=== PATIENT | female | born 1935 | race Caucasian/White ===

== ENCOUNTER 2023-09-29 16:19 | Inpatient (IN) | payer OTHER, SELFPAY ==
[2023-09-29 12:38] LABS: Glucose - Point of Care 142 mg/dl (70-99)
[2023-09-29 12:43] VITALS: BP 98/38
[2023-09-29 13:03] VITALS: BP 135/58
[2023-09-29 13:05] VITALS: BMI 23.8
[2023-09-29] MEDS: NSS 1000 IV ×2 (13:06→17:54)
[2023-09-29 13:15] LABS: % Basophils 0.6 % (0-2); % Eosinophils 2.8 % (0-6); % Immature Granulocytes 0.2 % (0-0.5); % Lymphocytes 34.4 % (20.5-51.1); % Monocytes 8.6 % (1.7-9.3); % Neutrophils 53.4 % (42.2-75.2); Absolute Basophils 0.1 10^3/uL (0-0.2); Absolute Eosinophils 0.2 10^3/uL (0-0.7); Absolute Monocytes 0.7 10^3/uL (0.1-0.6); Absolute Neutrophils 4.6 10^3/uL (1.4-6.5); Hematocrit 31.6 % (37.0-47.0); Hemoglobin 10.7 g/dL (12.0-16.0); Mean Corp Hgb Conc. 33.9 g/dL (33.0-37.0); Mean Corpuscular Hgb 30.2 pg (27.0-31.0); Mean Corpuscular Volume 89.3 fL (81.0-99.0); Mean Platelet Volume 9.8 fL (7.4-10.4); Nucleated Red Blood Cells % 0 %; Platelet Count 363 10^3/uL (130-400); Red Blood Cell Count 3.54 10^6/uL (4.20-5.40); Red Cell Dist. Width 14.3 % (11.5-14.5); White Blood Cell Count 8.6 10^3/uL (4.8-10.8)
--- NOTE | 2023-09-29 13:17 | ED.GENMED ---
History of Present Illness
General
Chief Complaint: Change in Mental Status
Source: patient
Time Seen by Provider: 09/29/23 12:44
History of Present Illness
History of Present Illness:
88 year old female with past medical history of hypertension, hyperlipidemia, previous acute kidney injury, diabetes insipidus presenting to the emergency department for reported change in mental status from [facility].
Family reportedly went to see the patient today and found the patient unable to get out of bed and seemingly confused. EMS noted patient with recently diagnosed spinal fractures and has been on opiate medications and were unsure if this may be
related. Patient arrives to the ER awake and alert, only oriented to self. Was not aware of place nor time. Patient without any physical complaints but is continuously groaning and stating 'I am going to '.
Past History
Past History
ED Past Medical History: GERD, HTN, Hypercholesterolemia, Renal failure and Psychiatric
ED Past Surgical History: Orthopedic
Social History
Tobacco: Non-smoker
Alcohol: None
Drug: None
Living: assisted living
Review of Systems
Review of Systems
All Other Systems: ROS reviewed and negative except as documented in HPI and ROS
Phy Exam
Physical Exam
Physical Exam:
GENERAL: Alert , continuously groaning but stating she is not in any pain
HEAD: NCAT
EYE: Clear conjunctiva
NECK: Supple
ENT: o/p clr, mmm.
CARDIAC: Regular rate and rhythm .
LUNGS: Clear breath sounds bilaterally, no acute respiratory distress, no wheezes/rales/rhonchi
ABDOMEN: Soft, without focal tenderness, no r/g, no cvat
NEUROLOGICAL: Alert and oriented to self
SKIN: Warm and dry, skin intact.
MUSCULOSKELETAL: No edema, well perfused.
PSYCH: Normal and appropriate interaction.
Scores
Heart Failure Risk
Heart Failure Risk Score: Not Applicable
Heart Score for Chest Pain Patients
STEMI patient?: Not applicable
Withdrawal Assessment of Alcohol
Withdrawal Assessment Completed?: Not applicable
Course
Orders/Labs/Results
Orders:
Orders
09/29/23 12:36
Electrocardiogram (*1) Urgent
Reason for Study: Other
Other Reason for Exam: bradycardia
09/29/23 12:37
EKG- Treatment ONCE
09/29/23 12:42
Complete Blood Count/With Diff Urgent
Comprehensive Metabolic Panel Urgent
Urinalysis Reflex To Culture Urgent
Date Specimen was Collected: 09/29/23
Time Specimen was Collected: 12:37
09/29/23 12:55
Electrocardiogram (*1) Urgent
Reason for Study: Other
Other Reason for Exam: change in mental status
CT Head W/o Iv Contrast Urgent
Comment:
Reason For Exam: change in mental status
EKG- Treatment ONCE
0.9% Sodium Chloride 1000 ml [Nss] 1,000 ml IV BOLUS
CR Chest Portable - 1 View Urgent
Comment:
Reason For Exam: change in mental status
Reason Study Needs to be Portable: Unable to Transport
09/29/23 13:01
COVID-19 Antigen Urgent
Source: Nasal Swab
Lactic Acid Q4H
Comment: CANCEL 2nd LACTIC ACID IF 1st LACTIC ACID IS LESS THAN 2
Abnormal Lab Results
09/29/23 09/29/23
12:37 12:42
RBC 3.54 L 10^6/uL
(4.20-5.40)
Hgb 10.7 L g/dL
(12.0-16.0)
Hct 31.6 L %
(37.0-47.0)
Absolute Monos (auto) 0.7 H 10^3/uL
(0.1-0.6)
BUN 95 H mg/dl
(7-17)
Creatinine 1.8 H mg/dL
(0.6-1.0)
Glucose 144 H mg/dl
(70-99)
Alkaline Phosphatase 191 H U/L
(38-126)
Albumin 2.9 L g/dl
(3.5-5.0)
Urine Bilirubin 1+ A
(Negative)
POC Glucose 142 H mg/dl
(70-99)
09/29/23 12:42
09/29/23 12:42
Vital Signs
Initial and Last Documented VS:
Initial Vital Signs
Pulse Resp Pulse Ox
85 16 95
09/29/23 12:37 09/29/23 12:37 09/29/23 12:37
Last Documented Vital Signs
Temp Pulse Resp BP Pulse Ox
98.5 F 82 13 136/53 97
09/29/23 12:43 09/29/23 14:45 09/29/23 14:45 09/29/23 14:20 09/29/23 14:30
MDM/Problems Addressed
Differential Diagnosis Includes:
Infectious etiology such as UTI or pneumonia, CVA or intracranial bleeding, medication interaction, dementia
MDM/Problems Addressed:
88-year-old female presenting to the emergency department for reported change in mental status. Reportedly on new medications for pain due to back fractures. Unsure if this is related. Patient not exhibiting any signs of opiate overdose. Patient
without any specific complaints at this time. No signs of trauma. Will obtain labs, urine, chest x-ray, head CT. Will attempt to contact family to get further history. Disposition pending.
*Pulse Oximetry
Patient hypoxic: no
*EKG
Interpreted by ED Provider?: Yes
Comparison EKG: no comparison EKG present
Heart Rate: 85
Rate: normal
Rhythm: sinus
[address]: normal axis
Ischemia: no ischemia
*Lock Setter Interpretation
Rate: normal
Rhythm: sinus
*Critical Care Note
Total Time (30-74mins, 75-104mins- exclusive of procedures): Not Applicable
Patient Management
Social determinants of health affecting care: Living situation
Discussion with other providers: Hospitalist
Escalation/DeEscalation of care consider admission/obs:
I spoke to patient's son and [id number] who are power of personal injury attorney. Patient has lived in [place] the last 30 years or so, became ill and went to the hospital there, was sent to [facility] for rehab and then since disposition to [facility]
where she has been out for the last 10 days or so. Over this time patient has had episodes of waxing and waning mental status changes but today when they went to see her he had a difficult time staying awake and staff at her assisted living
reported that patient had not been able to be awake since 7 AM. Family also reports that EMS had made them aware that patient had complained of some visual difficulties while getting in the ambulance today. Patient stating no current visual
disturbances. Patient is unable to elaborate further on this potential visual disturbance. Family unaware of patient's baseline renal function. Patient is DNR/DNI.
Labs do reveal prerenal azotemia and an acute kidney injury. No leukocytosis. Mild anemia. Urine without signs of infection, chest x-ray with a small right-sided pleural effusion. Head CT negative for any acute intracranial pathologies. Given
patient's suspected delirium combined with her prerenal azotemia and dehydration will admit for continued monitoring. Family made aware. They do note that patient has not been eating or drinking much due to not wanting to go to the bathroom
because it hurt for her to get up with her recent back fracture and she was attempting to try and not have to urinate as much throughout the day. Hospitalist team accepts for continued evaluation and treatment
ED Attending Note
-
Portions of this chart may have been created with voice recognition software.� Occasional wrong word or��sound alike� substitutions may have occurred due to the inherent limitations of voice recognition software.
Discharge Plan
Departure
Patient Disposition: Admit
Date of Disposition: 09/29/23
Time of Disposition: 14:59
Presentation/result/management discussed w/ accepting MD/DO: Hospitalist
Discharge Problem:
ERIC (acute kidney injury), Delirium
Prescriptions:
No Action
sennosides [senna] 8.6 mg Tablet
17.2 mg PO BID
acetaminophen [Tylenol] 325 mg Tablet
650 mg PO Q6HPRN PRN (Reason: mild pain)
lidocaine 4 % Adhesive Patch,Medicated
1 patch TOPICAL DAILY
cyanocobalamin (vitamin B-12) 1,000 mcg Tablet
1,000 mcg PO DAILY
melatonin 3 mg Tablet
3 mg PO HS
ferrous sulfate 325 mg (65 mg iron) Tablet
325 mg PO DAILY
docusate sodium [Colace] 100 mg Capsule
100 mg PO DAILY
bumetanide [Bumex] 1 mg Tablet
1 mg PO DAILY
gabapentin 100 mg Capsule
200 mg PO BID
irbesartan [Avapro] 150 mg Tablet
150 mg PO QPM
atenolol 50 mg Tablet
50 mg PO DAILY
oxycodone 5 mg Tablet
5 mg PO Q6HPRN PRN (Reason: severe pain)
calcium carbonate-vitamin D3 [Calcium 500 + D] 500 mg-10 mcg (400 unit) Tablet
1 tab PO BID
omeprazole 20 mg Tablet,Delayed Release (Dr/Ec)
20 mg PO DAILY
Interventions
Interventions:
*Risk Screen - Suicide Last Done: 09/29/23 12:43
*General Assessment Last Done: 09/29/23 12:43
*Neglect/Abuse Screening Last Done: 09/29/23 12:43
ED- Fall Risk Assessment Last Done: 09/29/23 13:07
*ED COVID-19 Vaccine History Last Done: 09/29/23 12:43
ED- Neurological Assessment Last Done: 09/29/23 13:07
ED- Cardiac Assessment Last Done: 09/29/23 13:07
Discharge Date and Time
Print Language: VIETNAMESE
[2023-09-29 13:22] LABS: Urine Albumin Negative (Neg - Trace); Urine Bilirubin 1+ (Negative); Urine Character Clear (Clear); Urine Color Yellow; Urine Glucose Negative (Negative); Urine Ketone Negative (Negative); Urine Leukocyte Negative (Negative); Urine Nitrite Negative (Negative); Urine Occult Blood Negative (Negative); Urine Specific Gravity 1.015 (<1.030); Urine Urobilinogen Negative (Neg - 1+)
[2023-09-29 13:33] LABS: COVID-19 Antigen Negative (Negative); Lactic Acid 1.5 mmol/L (0.7-2.0)
[2023-09-29 13:35] LABS: ALT (SGPT) 13 U/L (0-35); AST (SGOT) 33 U/L (14-36); Albumin 2.9 g/dl (3.5-5.0); Alkaline Phosphatase 191 U/L (38-126); Blood Urea Nitrogen 95 mg/dl (7-17); Calcium 8.4 mg/dl (8.4-10.2); Carbon Dioxide 26 mmol/L (22-30); Chloride 101 mmol/L (98-107); Estimated Creatinine Clearance 18 ml/min; Glucose 144 mg/dl (70-99); Potassium 4.9 mmol/L (3.5-5.1); Sodium 140 mmol/L (135-145); Total Bilirubin 0.9 mg/dl (0.2-1.3); Total Protein 6.4 g/dl (6.3-8.2); eGFR 26.93
[2023-09-29 14:20] VITALS: BP 136/53
--- NOTE | 2023-09-29 15:08 | HPS.HSE ---
Addendum entered and electronically signed by Jarett Meyer DO 09/29/23 16:15:
Patient is DNR, confirmed with family
Original Note:
Family Physician
-
Family Physician:
Chief Complaint
-
confusion
History of Present Illness
88-year-old with past medical history for anemia, type 2 diabetes, hyperlipidemia, anxiety, hypertension, peripheral venous insufficiency GERD ascites presented to us with confusion. At present patient is confused she is complaining of lower mid
back pain. History obtained from the from nursing staff at [facility]. This morning she was noted confused, shaking. Patient was not able to fall a sentence or carry over a conversation. She was noted to have her eyes placed backwards and she was
not able to see. She was not following commands. Patient is usually alert awake oriented x 3. At present she is denying any headache or dizziness patient denied any fever, chills, runny nose, congestion, cough. Patient denied any chest pain or
short of breath patient denied abdominal pain, nausea, vomiting or diarrhea. Patient denied dysuria hematuria... She was noted to have a bilateral lower extremities redness and dry scaly. As per nursing staff which is new. She came from a rehab 2
a week ago no new medications were added.
On arrival noted to have elevated creatinine. Patient received normal saline in ER admitting for further management.
Medical History
Past Medical History
Past Medical History: Reports Other
Additional Past Medical History:
Anemia
Type 2 diabetes
Hyperlipidemia
Anxiety cerebral edema
Hypertension
Peripheral venous insufficiency
Pleural effusion
GERD
Spinal stenosis
Ascites sacral fracture
Past Surgical History: Reports None
Social History
Tobacco: Non-smoker
Alcohol: None
Drug: None
Personal: Single
Living: Assisted Living
Family History
Family History: Not pertinent
Allergies / Home Medications
Allergies reflects when Allergies were last updated in [facility] [employer].
Home Medications with original date entered in [facility] [employer]
Allergy/Medication List:
Allergies
Allergy/AdvReac Type Severity Reaction Status Date / Time
aspirin Allergy Unknown Unknown Verified 09/29/23 12:41
iodine Allergy Unknown Unknown Verified 09/29/23 12:41
Penicillins Allergy Unknown Unknown Verified 09/29/23 12:41
Home Medications
acetaminophen 325 mg tablet (Tylenol) 650 mg PO Q6HPRN PRN mild pain 09/29/23
atenolol 50 mg tablet 50 mg PO DAILY 09/29/23
bumetanide 1 mg tablet 1 mg PO DAILY 09/29/23
calcium carbonate 500 mg-vitamin D3 10 mcg (400 unit) tablet (Calcium 500 + D) 1 tab PO BID 09/29/23
cyanocobalamin (vitamin B-12) 1,000 mcg tablet 1,000 mcg PO DAILY 09/29/23
docusate sodium 100 mg capsule (Colace) 100 mg PO DAILY 09/29/23
ferrous sulfate 325 mg (65 mg iron) tablet 325 mg PO DAILY 09/29/23
gabapentin 100 mg capsule 200 mg PO BID 09/29/23
irbesartan 150 mg tablet (Avapro) 150 mg PO QPM 09/29/23
lidocaine 4 % topical patch 1 patch topical DAILY lower back 09/29/23
melatonin 3 mg tablet 3 mg PO HS 09/29/23
omeprazole 20 mg tablet,delayed release 20 mg PO DAILY 09/29/23
oxycodone 5 mg tablet 5 mg PO Q6HPRN PRN severe pain 09/29/23
sennosides 8.6 mg tablet (senna) 17.2 mg PO BID 09/29/23
Review of Systems
-
Constitutional: Reports No Symptoms
EENT: Reports No Symptoms
Respiratory: Reports No Symptoms
Cardiac: Reports No Symptoms
Abdomen/GI: Reports No Symptoms
: Reports No Symptoms
Musculoskeletal: Reports Other (lower back pain)
Skin: Reports No Symptoms
Neurological: Reports No Symptoms
Endocrine: Reports No Symptoms
Hematologic/Lymphatic: Reports No Symptoms
Psych: Reports No Symptoms
Physical Exam
Vital Signs
Vital Signs
Temp Pulse Resp BP Pulse Ox
98.5 F 82 13 136/53 97
09/29/23 12:43 09/29/23 14:45 09/29/23 14:45 09/29/23 14:20 09/29/23 14:30
Physical Exam
General: Well Developed, Well Nourished and No Apparent Distress
HEENT: NormoCephalic, Moist mucous membranes and Atraumatic
Respiratory: Clear
Cardiac: S1/S2 and Regular Rhythm; No Murmur or Rub
GI: Soft, Non Tender, Non Distended and Normal Bowel Sounds; No Organomegaly
Rectal: Deferred by Provider
Musculoskeletal: No Clubbing, No Cyanosis and No Edema
Skin: Rash and Other (b/l LE redness)
Neuro: Nonfocal/grossly intact
Laboratory Results
-
09/29/23 12:42
09/29/23 12:42
Laboratory Results
Lactic Acid 1.5 mmol/L (0.7-2.0) 09/29/23 13:01
Total Bilirubin 0.9 mg/dl (0.2-1.3) 09/29/23 12:42
AST 33 U/L (14-36) 09/29/23 12:42
ALT 13 U/L (0-35) 09/29/23 12:42
Alkaline Phosphatase 191 U/L (38-126) H 09/29/23 12:42
Data Reviewed
-
CT Scan: Report Reviewed by me
Lab Data: Labs Reviewed by me
Impression/Plan
-
# Acute kidney injury likely prerenal from diminished oral intake
-BUN 95, creatinine 1.8
-Received normal saline x 1 bag in ER
-Continue fluids
-BMP in a.m.
-obtain US kidneys.
#metabolic encephalopathy likely delirium/Dementia
-CTm
-UA negative
# Iron deficiency anemia
-Hemoglobin 10.7
-Ferrous sulfate, B12 continued
# History of pleural effusion
-Hold Bumex
# Peripheral neuropathy
-Gabapentin continued
# Essential hypertension
-Irbesartan held due to ERIC
# GERD
- PPI continued
# Chronic lower back pain/fracture of sacrum
-Oxycodone continued
-Lidocaine patch continued
#DVT prophylaxis
-Heparin subcu
# CODE STATUS
-DNR
-
[2023-09-29 17:00] VITALS: BP 122/55; BMI 23.3
[2023-09-29] MEDS: HEPARIN 5000 UNITS SC (22:26)
[2023-09-29] MEDS: MELATONIN 3 MG PO (22:27)
[2023-09-29] MEDS: SENOKOT 17.2 MG PO (22:27)
[2023-09-29] MEDS: NEURONTIN 200 MG PO (22:27)
[2023-09-29 23:07] VITALS: BP 108/46
[2023-09-30 05:53] VITALS: BMI 23.3
[2023-09-30] MEDS: NSS 1000 IV ×2 (06:14→18:33)
[2023-09-30 07:18] VITALS: BP 100/63
[2023-09-30 08:24] LABS: Hematocrit 32.6 % (37.0-47.0); Hemoglobin 10.9 g/dL (12.0-16.0); Mean Corp Hgb Conc. 33.4 g/dL (33.0-37.0); Mean Corpuscular Volume 89.8 fL (81.0-99.0); Red Blood Cell Count 3.63 10^6/uL (4.20-5.40); Red Cell Dist. Width 14.3 % (11.5-14.5); White Blood Cell Count 5.1 10^3/uL (4.8-10.8)
[2023-09-30] MEDS: SENOKOT 17.2 MG PO (08:34)
[2023-09-30] MEDS: NEURONTIN 200 MG PO ×2 (08:35→20:52)
[2023-09-30] MEDS: COLACE 100 MG PO (08:35)
[2023-09-30] MEDS: PEPCID 20 MG PO (08:36)
[2023-09-30] MEDS: VITAMIN B-12 1000 MCG PO (08:36)
[2023-09-30] MEDS: TENORMIN 50 MG PO (08:36)
[2023-09-30] MEDS: FEOSOL 325 MG PO (08:37)
[2023-09-30] MEDS: HEPARIN 5000 UNITS SC ×2 (08:42→20:52)
[2023-09-30] MEDS: LIDOCAINE 4% PATCH 1 PATCH TOPICAL (08:47)
[2023-09-30 08:53] LABS: Blood Urea Nitrogen 85 mg/dl (7-17); Calcium 8.5 mg/dl (8.4-10.2); Carbon Dioxide 25 mmol/L (22-30); Chloride 106 mmol/L (98-107); Estimated Creatinine Clearance 25 ml/min; Glucose 136 mg/dl (70-99); Potassium 4.3 mmol/L (3.5-5.1); Sodium 143 mmol/L (135-145)
[2023-09-30 08:59] LABS: Mean Platelet Volume 9.6 fL (7.4-10.4); Platelet Count 282 10^3/uL (130-400)
--- NOTE | 2023-09-30 10:07 | W.PN.HOSP.TC ---
Today's Communication/Plan
-
Continue IV fluids, hold Bumex and ARB
Trend daily BMP
Delirium precautions
PT OT
Assessment / Plan
Assessment / Plan
#Acute metabolic encephalopathy -- Multifactorial with likely dementia superimposed with delirium, uremia from ERIC
#Acute kidney injury -- prerenal
-Presented with serum creatinine 1.8, BUN 95 with unknown baseline; acutely altered; negative UA
-Renal ultrasound yesterday did not show any signs of medical kidney disease, suspect all acuity
-Home Bumex and ARB was held, was started on IV fluids with creatinine 1.3 and BUN 85 this
-Mental status has seemed to improve as well, not as emotionally volatile
-Seems euvolemic on examination
Plan
-Continue with IV fluids, trend BMP daily
-Continue to hold Bumex, ARB, other nephrotoxic agents
-Monitor mental status clinically, delirium precautions
#Essential hypertension
-No known history of systemic complications; Home meds include atenolol, irbesartan; also on Bumex
-Irbesartan and Bumex are currently held in the context of prerenal ERIC as above
-Monitor blood pressure, this morning 108/46 mmHg
#Chronic iron deficiency anemia
-Home medications include ferrous sulfate and vitamin B12 supplementation
-Presented with hemoglobin of 10.7, hemoglobin today 10.9 which is probably baseline
-No signs or symptoms of bleeding at this time
#Chronic low back pain/fracture of same
#Peripheral neuropathy
-Home medications include oxycodone, lidocaine patch, gabapentin
-No known history of diabetes or chemotherapy, suspect neuropathy related to back
-States that her pain is currently at baseline on home regimen
#History of pleural effusion
-Unclear etiology, no known history of malignancy
-Home meds include Bumex which is held for prerenal ERIC
-Chest x-ray did show effusion of the right base, no previous x-ray to compare
-Hold Bumex as above, consider resuming if signs of worsening
#GERD
-No known history of PE or erosive disease, no recent known EGD
-Home regimen includes daily PPI which has been continued
-No signs of bleeding or other red flag symptoms
DVT prophylaxis: Heparin subcutaneously
Diet: Low-cholesterol
CODE STATUS: DNR
Anticipated Discharge: 24 - 48 hours
Subjective/Interval History
-
Date of Service: September 30, 2023
Seen and examined at the bedside today. No acute events reported overnight. She states that she feels well today, though history is limited by her mental status/dementia. She does seem to have better cognitive function today, is less emotional
than when she was admitted yesterday. She denies any acute complaints when asked including chest pain, shortness of breath, fevers or chills, urinary issues, GI issues, lightheadedness, weakness or paresthesias, abnormal bleeding or bruising
Objective Data
-
Labs:
Laboratory Results
09/30/23
07:49
WBC 5.1
Hgb 10.9 L
Hct 32.6 L
Plt Count 282 D
Sodium 143
Potassium 4.3
Chloride 106
Carbon Dioxide 25
BUN 85 H
Creatinine 1.3 H
Glucose 136 H
Calcium 8.5
Vital Signs:
Vital Signs
Temp Pulse Resp BP Pulse Ox
97.9 F 89 20 100/63 96
09/30/23 07:18 09/30/23 07:18 09/30/23 07:18 09/30/23 08:36 09/30/23 07:18
I&O
09/29/23 09/30/23 10/01/23
06:59 06:59 06:59
Intake Total 480 / 480
Balance 480 / 480
Review of Systems
-
Unable to obtain full review of systems at this time due to: Dementia
History Source: Patient
All other systems: Reviewed and negative
Physical Exam
-
General: No Apparent Distress and Comfortable; Negative Pain
HEENT: Normocephalic, Atraumatic and Moist Mucous Membranes
Respiratory: Clear to Auscultation, Non Labored Respirations and Decreased Breath Sounds (Right base)
Cardiac: Regular Rhythm and S1/S2; Negative Murmur, Rub, JVD or Gallop
GI: Soft, Nontender, Nondistended and Normal Bowel Sounds
Musculoskeletal: No Clubbing, No Cyanosis and No Edema
Skin: Warm and Dry; Negative Rash
Neuro: Awake, Alert, Oriented, Nonfocal/Grossly Intact and Central Nerve's Intact
Psych: Calm
Data Reviewed
-
Labs: Labs Reviewed by me and Discussed with Patient
[2023-09-30 12:44] VITALS: BP 126/53; PULSE 77
[2023-09-30 12:46] VITALS: BP 126/53; PULSE 77; O2SAT 98
--- NOTE | 2023-09-30 13:34 | CM ---
Addendum entered by Katey Muhammad 09/30/23 14:14:
CM spoke with Jacquie, who spoke with patients son, agreeable to SNF referrals, requesting referrals sent to local facilities. Jacquie does not want a referral to [facility] as patient did not have a good experience.
Plan; SNF pending accepting facility, will require auth.
Original Note:
CM placed call to [facility], spoke with nurse Landrum. Per Lucita, patient has recently moved to facility, is total care, reports patient is wheel chair bound and has not seen patient ambulate. CM discussed PT recommendations of SNF with nurse Landrum.
Lucita reports if patient not agreeable to SNF, they can accept patient back. Patient seen bedside, initial assessment completed. Patient resides at [facility], recently was at [facility]. Patient reports she can ambulate with a RW, does
have a WC. Patient PCP Johnna Biswas, pharmacy [facility]. CM discussed SNF recommendation with patient, patient agreeable, asking CM to call daughter in law Jacquie. Call placed to Jacquie, discussed recommendations. Jacquie reports patient was
at [facility] SNF for three weeks. Jacquie reports patient recently started therapy at [facility]. Jacquie would like to discuss recommendations with , will call CM back. CM will awaiting families call regarding returning to [facility] vs
SNF.
Plan; Return to [facility] with therapy versus SNF.
--- NOTE | 2023-09-30 15:54 | WOUNDNOTE ---
[facility] RN NOTE: Reviewed chart, spoke to RN's Hudson, and met with patient. Patient has stage 2 of buttocks/sacral area surrounded by non-blanchable reddened skin likely caused by pressure and moisture. Reddened area is fungal appearing.
Heels are boggy and cover with adhesive foam and off-loaded on pillows. Patient reports poor appetite. She requires total care and is chair and bed bound at facility. She requires a turning schedule and to be placed on air surface. Discussed plan
with RN's who will add static air overlay to bed. Patient has several comorbidities including poor appetite, incontinence and poor mobility. Wounds may worsen and new wounds may develop even with optimal care. Care plan and discharge updated. Will
confirm orders with hospitalist and update RN. Will follow as needed.
[2023-09-30 15:57] VITALS: BP 111/75
[2023-09-30 16:56] VITALS: BMI 23.3
[2023-09-30] MEDS: ANTIFUNGAL CLEAR 1 APPLIC TOPICAL (20:51)
[2023-09-30] MEDS: MELATONIN 3 MG PO (20:53)
[2023-09-30 23:22] VITALS: BP 123/56
[2023-10-01 05:58] VITALS: BMI 23.5
[2023-10-01] MEDS: NSS 1000 IV (06:53)
[2023-10-01 07:47] LABS: Blood Urea Nitrogen 67 mg/dl (7-17); Calcium 8.2 mg/dl (8.4-10.2); Carbon Dioxide 25 mmol/L (22-30); Chloride 112 mmol/L (98-107); Estimated Creatinine Clearance 33 ml/min; Glucose 125 mg/dl (70-99); Potassium 3.8 mmol/L (3.5-5.1); Sodium 146 mmol/L (135-145); eGFR 54.53
[2023-10-01 07:51] VITALS: BP 134/72
[2023-10-01 08:05] LABS: % Basophils 0.9 % (0-2); % Eosinophils 5.1 % (0-6); % Immature Granulocytes 0.2 % (0-0.5); % Lymphocytes 38.3 % (20.5-51.1); % Monocytes 11.1 % (1.7-9.3); % Neutrophils 44.4 % (42.2-75.2); Absolute Eosinophils 0.2 10^3/uL (0-0.7); Absolute Lymphocytes 1.7 10^3/uL (1.2-3.4); Absolute Monocytes 0.5 10^3/uL (0.1-0.6); Hematocrit 28.9 % (37.0-47.0); Hemoglobin 9.4 g/dL (12.0-16.0); Mean Corp Hgb Conc. 32.5 g/dL (33.0-37.0); Mean Corpuscular Hgb 29.7 pg (27.0-31.0); Mean Corpuscular Volume 91.5 fL (81.0-99.0); Mean Platelet Volume 9.4 fL (7.4-10.4); Nucleated Red Blood Cells % 0 %; Platelet Count 224 10^3/uL (130-400); Red Blood Cell Count 3.16 10^6/uL (4.20-5.40); Red Cell Dist. Width 14.4 % (11.5-14.5); White Blood Cell Count 4.5 10^3/uL (4.8-10.8)
[2023-10-01] MEDS: FEOSOL 325 MG PO (09:08)
[2023-10-01] MEDS: PEPCID 20 MG PO (09:08)
[2023-10-01] MEDS: HEPARIN 5000 UNITS SC ×2 (09:09→20:39)
[2023-10-01] MEDS: VITAMIN B-12 1000 MCG PO (09:09)
[2023-10-01] MEDS: NEURONTIN 200 MG PO ×2 (09:09→20:39)
[2023-10-01] MEDS: TENORMIN 50 MG PO (09:09)
[2023-10-01] MEDS: LIDOCAINE 4% PATCH 1 PATCH TOPICAL (09:09)
[2023-10-01] MEDS: ANTIFUNGAL CLEAR 1 APPLIC TOPICAL ×2 (09:10→20:40)
--- NOTE | 2023-10-01 10:13 | W.PN.HOSP.TC ---
Today's Communication/Plan
-
Repeat chest x-ray, reassess known pleural effusion
Hold Bumex and irbesartan, encourage oral hydration
Begin planning for SNF
Assessment / Plan
Assessment / Plan
#Acute metabolic encephalopathy -- Multifactorial with likely dementia superimposed with delirium, uremia from ERIC
#Acute kidney injury -- prerenal
-Presented with serum creatinine 1.8, BUN 95 with unknown baseline; acutely altered; negative UA
-Renal ultrasound yesterday did not show any signs of medical kidney disease, suspect all acuity
-Home Bumex and ARB was held, was started on IV fluids with creatinine 1.3 and BUN 85 this
-Mental status has seemed to improve as well, not as emotionally volatile
-Renal function has normalized with IVF, Bumex remains held as does her ARB
-Will continue to trend BMP while here
#Essential hypertension
-No known history of systemic complications; Home meds include atenolol, irbesartan; also on Bumex
-Irbesartan and Bumex are currently held in the context of prerenal ERIC as above
-Monitor blood pressure, this morning 108/46 mmHg
#Chronic iron deficiency anemia
-Home medications include ferrous sulfate and vitamin B12 supplementation
-Presented with hemoglobin of 10.7, hemoglobin today 10.9 which is probably baseline
-No signs or symptoms of bleeding at this time
#Chronic low back pain/fracture of same
#Peripheral neuropathy
-Home medications include oxycodone, lidocaine patch, gabapentin
-No known history of diabetes or chemotherapy, suspect neuropathy related to back
-States that her pain is currently at baseline on home regimen
#History of pleural effusion
-Unclear etiology, no known history of malignancy
-Home meds include Bumex which is held for prerenal ERIC
-Chest x-ray did show effusion of the right base, no previous x-ray to compare
-Repeat chest x-ray today to assess for worsening, assess need for Bumex
#GERD
-No known history of PE or erosive disease, no recent known EGD
-Home regimen includes daily PPI which has been continued
-No signs of bleeding or other red flag symptoms
DVT prophylaxis: Heparin subcutaneously
Diet: Low-cholesterol
CODE STATUS: DNR
Anticipated Discharge: Within 24 hours
Subjective/Interval History
-
Date of Service: October 01, 2023
Seen and examined at the bedside. No acute events reported overnight. Remembers me from yesterday, mental function seems better day by day.
She denies any acute complaints. Did have significant bowel movement frequency following her bowel regimen yesterday. Has been de-escalated since.
She denies chest pain, shortness of breath, fevers or chills, nausea, vomiting, urinary issues, paresthesias or weakness, abnormal bleeding or bruising that she has noticed
Objective Data
-
Labs:
Laboratory Results
10/01/23
06:30
WBC 4.5 L
Hgb 9.4 L
Hct 28.9 L
Plt Count 224 D
Sodium 146 H
Potassium 3.8
Chloride 112 H
Carbon Dioxide 25
BUN 67 H
Creatinine 1.0
Glucose 125 H
Calcium 8.2 L
Vital Signs:
Vital Signs
Temp Pulse Resp BP Pulse Ox
97.7 F 90 18 134/72 98
10/01/23 07:51 10/01/23 07:51 10/01/23 07:51 10/01/23 07:51 10/01/23 07:51
I&O
09/30/23 10/01/23 10/02/23
06:59 06:59 06:59
Intake Total 480 / 480 1080 / 1080
Balance 480 / 480 1080 / 1080
Review of Systems
-
History Source: Patient
All other systems: Reviewed and negative
Physical Exam
-
General: Well Nourished, No Apparent Distress and Comfortable
HEENT: Normocephalic, Atraumatic and Moist Mucous Membranes
Respiratory: Clear to Auscultation, Non Labored Respirations and Decreased Breath Sounds (Right lung base, stable)
Cardiac: Regular Rhythm and S1/S2; Negative Murmur, Rub, JVD or Gallop
GI: Soft, Nontender, Nondistended and Normal Bowel Sounds
Musculoskeletal: No Clubbing, No Cyanosis and No Edema
Neuro: AO x 3 (AAO x 2 to 3), Nonfocal/Grossly Intact and Central Nerve's Intact; Negative Tremors
Data Reviewed
-
Labs: Labs Reviewed by me and Discussed with Patient
--- NOTE | 2023-10-01 14:43 | CM ---
CM placed call to patients daughter in law, Jacquie, to discuss SNF accepting facilities. CM left voicemail requesting return call. Patient will require insurance auth for SNF placement. CM will continue to follow for all discharge planning needs.
Plan; awaiting return call from family to discuss accepting SNFS ([facility]), will need insurance auth.
[2023-10-01 15:23] VITALS: BP 154/74
[2023-10-01] MEDS: MELATONIN 3 MG PO (20:39)
[2023-10-01 23:00] VITALS: BP 149/69
[2023-10-02 06:00] VITALS: BMI 25.0
[2023-10-02 07:00] VITALS: BP 152/69
[2023-10-02] MEDS: ANTIFUNGAL CLEAR 1 APPLIC TOPICAL ×2 (08:39→19:34)
[2023-10-02] MEDS: FEOSOL 325 MG PO (08:40)
[2023-10-02] MEDS: VITAMIN B-12 1000 MCG PO (08:40)
[2023-10-02] MEDS: TENORMIN 50 MG PO (08:40)
[2023-10-02] MEDS: PEPCID 20 MG PO (08:40)
[2023-10-02] MEDS: NEURONTIN 200 MG PO ×2 (08:40→19:34)
[2023-10-02] MEDS: HEPARIN 5000 UNITS SC ×2 (08:44→19:34)
[2023-10-02] MEDS: LIDOCAINE 4% PATCH 1 PATCH TOPICAL (08:44)
[2023-10-02 09:25] LABS: Hemoglobin 11.4 g/dL (12.0-16.0); Mean Corp Hgb Conc. 32.6 g/dL (33.0-37.0); Mean Corpuscular Hgb 29.5 pg (27.0-31.0); Mean Corpuscular Volume 90.4 fL (81.0-99.0); Mean Platelet Volume 9.5 fL (7.4-10.4); Platelet Count 294 10^3/uL (130-400); Red Blood Cell Count 3.87 10^6/uL (4.20-5.40); Red Cell Dist. Width 14.6 % (11.5-14.5); White Blood Cell Count 4.7 10^3/uL (4.8-10.8)
[2023-10-02 09:31] LABS: Blood Urea Nitrogen 50 mg/dl (7-17); Calcium 8.9 mg/dl (8.4-10.2); Carbon Dioxide 23 mmol/L (22-30); Chloride 113 mmol/L (98-107); Estimated Creatinine Clearance 41 ml/min; Glucose 147 mg/dl (70-99); Potassium 4.3 mmol/L (3.5-5.1); Sodium 145 mmol/L (135-145); eGFR > 60.00
--- NOTE | 2023-10-02 10:14 | W.PN.HOSP.TC ---
Today's Communication/Plan
-
Resume home Bumex
Repeat BMP in the morning if still here
Begin SNF authorization
Assessment / Plan
Assessment / Plan
#Acute metabolic encephalopathy -- Multifactorial with likely dementia superimposed with delirium, uremia from ERIC
#Acute kidney injury -- prerenal
-Presented with serum creatinine 1.8, BUN 95 with unknown baseline; acutely altered; negative UA
-Renal ultrasound yesterday did not show any signs of medical kidney disease, suspect all acuity
-Home Bumex and ARB was held, was started on IV fluids with creatinine 1.3 and BUN 85 this
-Mental status has seemed to improve as well, not as emotionally volatile
-Renal function is normalized, mental status stable
-Resume Bumex and repeat BMP in morning
#Right pleural effusion
-Chronic, unclear etiology, no known history of malignancy
-Home meds include Bumex which is held for prerenal ERIC
-Chest x-ray did show effusion of the right base, no previous x-ray to compare
-X-ray yesterday showed slight enlargement, restarted Bumex today as above
#Essential hypertension
-No known history of systemic complications; Home meds include atenolol, irbesartan; also on Bumex
-Irbesartan and Bumex are currently held in the context of prerenal ERIC as above
-Blood pressure currently within goal range for hospital stay
#Chronic iron deficiency anemia
-Home medications include ferrous sulfate and vitamin B12 supplementation
-Presented with hemoglobin of 10.7, hemoglobin today 10.9 which is probably baseline
-No signs or symptoms of bleeding at this time
#Chronic low back pain/fracture of same
#Peripheral neuropathy
-Home medications include oxycodone, lidocaine patch, gabapentin
-No known history of diabetes or chemotherapy, suspect neuropathy related to back
-States that her pain is currently at baseline on home regimen
#GERD
-No known history of PE or erosive disease, no recent known EGD
-Home regimen includes daily PPI which has been continued
-No signs of bleeding or other red flag symptoms
DVT prophylaxis: Heparin subcutaneously
Diet: Low-cholesterol
CODE STATUS: DNR
Anticipated Discharge: Within 24 hours
Subjective/Interval History
-
Date of Service: October 02, 2023
Seen and examined at the bedside. No acute events reported overnight.
She states she feels well, has no acute complaints. Feels ready to leave the hospital.
Denies chest pain, shortness of breath, fevers or chills, nausea, vomit, diarrhea, constipation, abnormal bleeding or bruising, urinary issues, paresthesias or weakness
Objective Data
-
Labs:
Laboratory Results
10/02/23
08:58
WBC 4.7 L
Hgb 11.4 L D
Hct 35.0 L
Plt Count 294 D
Sodium 145
Potassium 4.3
Chloride 113 H
Carbon Dioxide 23
BUN 50 H
Creatinine 0.8
Glucose 147 H
Calcium 8.9
Vital Signs:
Vital Signs
Temp Pulse Resp BP Pulse Ox
97.4 F 77 18 152/69 97
10/02/23 07:00 10/02/23 08:40 10/02/23 07:00 10/02/23 08:40 10/02/23 07:00
I&O
10/01/23 10/02/23 10/03/23
06:59 06:59 06:59
Intake Total 1079 / 1080 1690 / 1690
Balance 1079 / 1080 0 / 169
Review of Systems
-
History Source: Patient
All other systems: Reviewed and negative
Physical Exam
-
General: Well Nourished, No Apparent Distress and Comfortable
HEENT: Normocephalic, Atraumatic and Moist Mucous Membranes
Respiratory: Non Labored Respirations and Decreased Breath Sounds (Right lung base, CTA otherwise); Negative Wheezes, Rales or Rhonchi
Cardiac: Regular Rhythm and S1/S2; Negative Murmur, Rub, JVD or Gallop
GI: Soft, Nontender, Nondistended and Normal Bowel Sounds
Musculoskeletal: No Clubbing, No Cyanosis and No Edema
Skin: Warm and Dry; Negative Rash
Neuro: AO x 3, Nonfocal/Grossly Intact and Central Nerve's Intact
Data Reviewed
-
Labs: Labs Reviewed by me and Discussed with Patient
[2023-10-02] MEDS: BUMEX 0.5 MG PO (12:18)
--- NOTE | 2023-10-02 12:29 | CM ---
CM spoke with patients daughter in law, Jacquie, agreeable for patient to discharge to [facility]. Jacquie reports she and patients son have previously toured [facility] and are happy with the facility. Patient seen bedside, agreeable to [facility]. CM
confirmed with Vanessa from [facility] that they can offer bed, [facility]: [phone], Dr. Hossein Saravia: [phone]. Auth initiated through [employer], faxed to [phone], pending reference #[id number]. CM will continue to follow for all discharge
planning needs.
Plan; [facility] pending insurance auth, pending reference #[id number].
[2023-10-02 15:30] VITALS: BP 129/57
[2023-10-02] MEDS: TYLENOL 650 MG PO (19:35)
[2023-10-02] MEDS: MELATONIN 3 MG PO (21:26)
[2023-10-02 23:12] VITALS: BP 104/59
[2023-10-03 06:00] VITALS: BMI 25.0
[2023-10-03 07:46] VITALS: BP 143/60
[2023-10-03 07:57] LABS: Hematocrit 32.9 % (37.0-47.0); Hemoglobin 10.6 g/dL (12.0-16.0); Mean Corp Hgb Conc. 32.2 g/dL (33.0-37.0); Mean Corpuscular Hgb 29.1 pg (27.0-31.0); Mean Corpuscular Volume 90.4 fL (81.0-99.0); Mean Platelet Volume 9.4 fL (7.4-10.4); Platelet Count 262 10^3/uL (130-400); Red Blood Cell Count 3.64 10^6/uL (4.20-5.40); Red Cell Dist. Width 14.7 % (11.5-14.5)
[2023-10-03] MEDS: FEOSOL 325 MG PO (08:00)
[2023-10-03] MEDS: ANTIFUNGAL CLEAR 1 APPLIC TOPICAL ×2 (08:00→19:24)
[2023-10-03] MEDS: BUMEX 0.5 MG PO (08:00)
[2023-10-03] MEDS: HEPARIN 5000 UNITS SC ×2 (08:00→19:25)
[2023-10-03] MEDS: LIDOCAINE 4% PATCH 1 PATCH TOPICAL (08:01)
[2023-10-03] MEDS: NEURONTIN 200 MG PO ×2 (08:02→19:24)
[2023-10-03] MEDS: PEPCID 20 MG PO (08:02)
[2023-10-03] MEDS: VITAMIN B-12 1000 MCG PO (08:02)
[2023-10-03] MEDS: TENORMIN 50 MG PO (08:02)
--- NOTE | 2023-10-03 08:13 | W.PN.HOSP.TC ---
Addendum entered and electronically signed by Jamar Ospina MD 10/03/23 15:20:
#Stage 2 decubitus ulcer of buttocks/sacrum
Wound care
Addendum entered and electronically signed by Jamar Ospina MD 10/03/23 15:19:
#Hypernatremia
Hold Bumex, repeat BMP tomorrow
Original Note:
Today's Communication/Plan
-
Discharge to short-term rehab when insurance authorization has been obtained
Assessment / Plan
Assessment / Plan
#Acute metabolic encephalopathy -- Multifactorial with likely dementia superimposed with delirium, uremia from ERIC
#Acute kidney injury -- prerenal
-Presented with serum creatinine 1.8, BUN 95 with unknown baseline; acutely altered; negative UA
-Renal ultrasound yesterday did not show any signs of medical kidney disease, suspect all acuity
-Home Bumex and ARB was held, was started on IV fluids with creatinine 1.3 and BUN 85
-Mental status has seemed to improve as well, not as emotionally volatile
-Renal function is normalized, mental status stable
-Bumex resumed 10/01, patient's sodium 146, will hold Bumex starting 10/02
#Right pleural effusion
-Chronic, unclear etiology, no known history of malignancy
-Home meds include Bumex which is held for prerenal ERIC
-Chest x-ray did show effusion of the right base, no previous x-ray to compare
-X-ray yesterday showed slight enlargement
#Essential hypertension
-No known history of systemic complications; Home meds include atenolol, irbesartan; also on Bumex
-Irbesartan and Bumex are currently held in the context of prerenal ERIC as above
-Blood pressure currently within goal range for hospital stay
#Chronic iron deficiency anemia
-Home medications include ferrous sulfate and vitamin B12 supplementation
-Presented with hemoglobin of 10.7, hemoglobin today 10.9 which is probably baseline
-No signs or symptoms of bleeding at this time
#Chronic low back pain/fracture of same
#Peripheral neuropathy
-Home medications include oxycodone, lidocaine patch, gabapentin
-No known history of diabetes or chemotherapy, suspect neuropathy related to back
-States that her pain is currently at baseline on home regimen
#GERD
-No known history of PE or erosive disease, no recent known EGD
-Home regimen includes daily PPI which has been continued
-No signs of bleeding or other red flag symptoms
DVT prophylaxis�subcu heparin
DNR
Total time spent to see the patient on the floor, examine the patient, review data and lab results, discuss treatment plan with patient, nursing staff around 39 minutes.
Physical Exam
General: No acute distress
HEENT: Normocephalic, Atraumatic, EOMI, MMM
Respiratory: Clear to Auscultation bilaterally
Cardiac: Normal S1/S2, Regular Rate and Rhythm
GI: Soft, Nontender, Nondistended, Normal Bowel Sounds
Extremities: No Clubbing, Cyanosis, or Edema
Neuro: Pleasantly confused
Anticipated Discharge: Within 24 hours
Subjective/Interval History
-
Date of Service: October 03, 2023
Patient denies shortness of breath. No fever, no vomiting.
Objective Data
-
Labs:
Laboratory Results
10/03/23
07:30
WBC 5.0
Hgb 10.6 L
Hct 32.9 L
Plt Count 262
Sodium Pending
Potassium Pending
Chloride Pending
Carbon Dioxide Pending
BUN Pending
Creatinine Pending
Glucose Pending
Calcium Pending
Vital Signs:
Vital Signs
Temp Pulse Resp BP Pulse Ox
98.0 F 76 18 143/60 96
10/03/23 07:46 10/03/23 07:46 10/03/23 07:46 10/03/23 07:46 10/03/23 07:46
I&O
10/02/23 10/03/23 10/04/23
06:59 06:59 06:59
Intake Total 1690 / 1690 840 / 840
Balance 1690 / 1690 840 / 840
[2023-10-03 08:30] LABS: Blood Urea Nitrogen 42 mg/dl (7-17); Calcium 9.3 mg/dl (8.4-10.2); Carbon Dioxide 27 mmol/L (22-30); Chloride 113 mmol/L (98-107); Estimated Creatinine Clearance 41 ml/min; Glucose 133 mg/dl (70-99); Potassium 4.4 mmol/L (3.5-5.1); Sodium 146 mmol/L (135-145); eGFR > 60.00
--- NOTE | 2023-10-03 12:20 | CM ---
TC to Marta/Bob[facility] [phone]
Pended reference #[id number].
Per Marta at [facility], reference # still pending. They stated have not received clinicals.
Number verified, (same fax number as yesterday) CM againf axed clinicals to [phone].
CM asked sales representative gas service to expedite the request.
[facility]; [facility] pending insurance auth, pending reference #[id number].
[2023-10-03 13:49] VITALS: BP 114/70
--- NOTE | 2023-10-03 15:01 | PN.CDI ---
CDI
- -
CDI:
Physician Documentation Request
Admit Date: 09/29/23 16:19
Dear Doctor Do,
Please review the following and provide your response in the progress notes.
Clinical Indicators:
Pt admitted with ERIC/Metabolic Encephalopathy
Documented per [facility] note 09/29, ' Patient has stage 2 of buttocks/sacral area surrounded by non-blanchable reddened skin likely caused by pressure and moisture.....cover with adhesive foam ..Patient reports poor appetite. She requires total care and
is chair and bed bound at facility. She requires a turning schedule and to be placed on air surface. ...'
Physician documentation of the type and location of wounds is required for compliant documentation. Based on the above clinical findings and your assessment, please provide the following in your progress note:
1. Location of the ulcer/wound, including laterality.
2. Type (etiology) of ulcer/wound:
- Pressure (decubitus) ulcer
- Non-pressure ulcer
- Other
- Unable to determine
Use of terms such as suspected, likely, concern for, or probable (associated with a specific diagnosis that is being evaluated, monitored, or treated as if it exists) are acceptable and can be coded in the inpatient setting, when documented at the
time of discharge.
Thank you,
Emily Salazar RN
CDI Specialist
[facility]
Please use your independent medical judgment in providing your response.
*Source: National Pressure Ulcer Advisory Panel (NPUAP)
[2023-10-03 15:03] VITALS: BP 155/70
--- NOTE | 2023-10-03 15:05 | PN.CDI ---
CDI
- -
CDI:
Physician Documentation Request
Admit Date: 09/29/23 16:19
Dear Doctor Do,
Please review the following and provide your response in the progress notes.
Clinical Indicators:
Pt admitted with ERIC/Metabolic Encephalopathy
Sodium levels are as below /Pt did get IVF NS
Documented in progress note 10/02,' Bumex resumed 10/01, patient's sodium 146, will hold Bumex starting 10/02...'
Laboratory Tests
10/01/23 10/03/23
06:30 07:30
Sodium 146 H 146 H
Based on the above, could you clarify in the progress notes, the appropriate diagnosis, if significant, that supports the above abnormalities and additional evaluation, monitoring and/or treatment rendered:
Hypernatremia
Abnormal lab value
Other
Use of terms such as suspected, likely, concern for, or probable (associated with a specific diagnosis that is being evaluated, monitored, or treated as if it exists) are acceptable and can be coded in the inpatient setting, when documented at the
time of discharge.
Thank you,
Emily Salazar RN
CDI Specialist
[facility]
Please use your independent medical judgment in providing your response.
[2023-10-03] MEDS: MELATONIN 3 MG PO (21:23)
[2023-10-03 23:08] VITALS: BP 140/72
[2023-10-04] VITALS (7 sets, daily range): BP systolic 78–148; BP diastolic 57–65; BMI 24.8
[2023-10-04 07:17] LABS: Blood Urea Nitrogen 34 mg/dl (7-17); Calcium 9.3 mg/dl (8.4-10.2); Carbon Dioxide 27 mmol/L (22-30); Chloride 112 mmol/L (98-107); Estimated Creatinine Clearance 41 ml/min; Glucose 132 mg/dl (70-99); Potassium 4.4 mmol/L (3.5-5.1); Sodium 146 mmol/L (135-145); eGFR > 60.00
[2023-10-04] MEDS: NEURONTIN 200 MG PO ×2 (08:00→19:35)
[2023-10-04] MEDS: VITAMIN B-12 1000 MCG PO (08:00)
[2023-10-04] MEDS: HEPARIN 5000 UNITS SC ×2 (08:00→19:34)
[2023-10-04] MEDS: FEOSOL 325 MG PO (08:00)
[2023-10-04] MEDS: PEPCID 20 MG PO (08:00)
[2023-10-04] MEDS: LIDOCAINE 4% PATCH TOPICAL ×2 (08:01→09:01)
[2023-10-04] MEDS: TENORMIN 50 MG PO (08:06)
[2023-10-04] MEDS: ANTIFUNGAL CLEAR 1 APPLIC TOPICAL ×2 (08:07→19:36)
--- NOTE | 2023-10-04 08:54 | W.PN.HOSP.TC ---
Today's Communication/Plan
-
see bold
Assessment / Plan
Assessment / Plan
#Acute metabolic encephalopathy -- Multifactorial with likely dementia superimposed with delirium, uremia from ERIC
#Acute kidney injury -- prerenal
-Presented with serum creatinine 1.8, BUN 95 with unknown baseline; acutely altered; negative UA
-Renal ultrasound yesterday did not show any signs of medical kidney disease, suspect all acuity
-Home Bumex and ARB was held, was started on IV fluids with creatinine 1.3 and BUN 85
-Mental status has seemed to improve as well, not as emotionally volatile
-Renal function is normalized, mental status stable
-Bumex resumed 10/01, patient's sodium 146, will hold Bumex again
#Hypernatremia
Hold Bumex, repeat BMP
#Stage 2 decubitus ulcer of buttocks/sacrum
Wound care
#Right pleural effusion
-Chronic, unclear etiology, no known history of malignancy
-Home meds include Bumex which is held for prerenal ERIC
-Chest x-ray did show effusion of the right base, no previous x-ray to compare
-X-ray showed slight enlargement
-Consult interventional radiology for thoracentesis since Bumex is held
#Essential hypertension
-No known history of systemic complications; Home meds include atenolol, irbesartan; also on Bumex
-Irbesartan and Bumex are currently held in the context of prerenal ERIC as above
-Blood pressure currently within goal range for hospital stay
#Chronic iron deficiency anemia
-Home medications include ferrous sulfate and vitamin B12 supplementation
-Presented with hemoglobin of 10.7, hemoglobin 10.9 which is probably baseline
-No signs or symptoms of bleeding at this time
#Chronic low back pain/fracture of same
#Peripheral neuropathy
-Home medications include oxycodone, lidocaine patch, gabapentin
-No known history of diabetes or chemotherapy, suspect neuropathy related to back
-States that her pain is currently at baseline on home regimen
#GERD
-No known history of PE or erosive disease, no recent known EGD
-Home regimen includes daily PPI which has been continued
-No signs of bleeding or other red flag symptoms
DVT prophylaxis�subcu heparin
DNR
Total time spent to see the patient on the floor, examine the patient, review data and lab results, discuss treatment plan with patient, nursing staff around 50 minutes.
Physical Exam
General: No acute distress
HEENT: Normocephalic, Atraumatic, EOMI, MMM
Respiratory: Clear to Auscultation bilaterally
Cardiac: Normal S1/S2, Regular Rate and Rhythm
GI: Soft, Nontender, Nondistended, Normal Bowel Sounds
Extremities: No Clubbing, Cyanosis, or Edema
Neuro: Pleasantly confused
Anticipated Discharge: Within 24 hours
Subjective/Interval History
-
Date of Service: October 03, 2023
Patient denies chest pain, denies shortness of breath.
Objective Data
-
Labs:
Laboratory Results
10/03/23
07:30
WBC 5.0
Hgb 10.6 L
Hct 32.9 L
Plt Count 262
Sodium 146 H
Potassium 4.4
Chloride 113 H
Carbon Dioxide 27
BUN 42 H
Creatinine 0.8
Glucose 133 H
Calcium 9.3
Vital Signs:
Vital Signs
Temp Pulse Resp BP Pulse Ox
98.1 F 79 18 155/70 98
10/03/23 15:03 10/03/23 15:03 10/03/23 15:03 10/03/23 15:03 10/03/23 15:03
I&O
10/02/23 10/03/23 10/04/23
06:59 06:59 06:59
Intake Total 1690 / 1690 840 / 840
Balance 1689 930 / 885
[2023-10-04] MEDS: TYLENOL 650 MG PO (09:20)
--- NOTE | 2023-10-04 10:00 | CM ---
Addendum entered by Katey Muhammad 10/04/23 16:01:
CM received call from daughter in lawJacquie, spoke with , would like patient to return to with therapy from facility, will need a script for PT/OT. Patient will need ambulance transport upon discharge.
CM placed call to , spoke with nurse Tamara, discussed patient likely for discharge tomorrow. Tamara requesting a referral made to [facility].
:
Report: [phone]

Addendum entered by Katey Muhammad 10/04/23 12:13:
CM received update from Dr. Santos, peer to peer conducted, denial being upheld, Dr. Lara feels as though patient can return to facility with therapy as patient is wheelchair bound at baseline. CM placed call to daughter in lawJacquie,
discussed auth denial, peer to peer denial, option for family to appeal. Jacquie would like to discuss with her , unsure if they would like to move forward with family appeal or would like patient to return to facility with PT/OT. Jacquie
reports she did speak with this morning and was informed that patient can return with PT/OT through or PT/OT through outside agency. CM will await decision from family. CM will continue to follow for all discharge planning
needs.
Plan; family to appeal auth versus return to therapy with PT/OT.
Original Note:
CM received voicemail from Sonia at [facility], intent to deny SNF, auth #[id number], peer to peer can be completed by 10/03 until 12:00 p.m. to , option 2. Update to [employer], Dr. Santos. CM will continue to follow for all
discharge planning needs.
Plan; peer to peer for SNF auth denial, awaiting outcome.
[2023-10-04 16:21] LABS: Total Protein 5.7 g/dl (6.3-8.2)
[2023-10-04 17:09] LABS: LDH 198 U/L (120-246)
[2023-10-04 17:38] LABS: Body Fluid pH 7.46
[2023-10-04 17:44] LABS: Body Fluid LDH 97 U/L; Body Fluid Protein < 2.0 g/dl
[2023-10-04] MEDS: MELATONIN 3 MG PO (22:37)
[2023-10-05 06:00] VITALS: BMI 24.3
[2023-10-05 07:22] LABS: Blood Urea Nitrogen 35 mg/dl (7-17); Carbon Dioxide 24 mmol/L (22-30); Chloride 111 mmol/L (98-107); Estimated Creatinine Clearance 41 ml/min; Glucose 110 mg/dl (70-99); Potassium 4.5 mmol/L (3.5-5.1); Sodium 144 mmol/L (135-145); eGFR > 60.00
[2023-10-05 07:29] VITALS: BP 123/59
[2023-10-05 07:49] LABS: TSH Reflex To Free T4 1.99 uIU/ml (0.47-4.68)
[2023-10-05 08:08] LABS: Vitamin B12 > 1000 pg/ml (239-931)
--- NOTE | 2023-10-05 09:12 | W.PN.HOSP.TC ---
Today's Communication/Plan
-
Discharge today
Assessment / Plan
Assessment / Plan
#Acute metabolic encephalopathy -- Multifactorial with likely dementia superimposed with delirium, uremia from ERIC
#Acute kidney injury -- prerenal
-Presented with serum creatinine 1.8, BUN 95 with unknown baseline; acutely altered; negative UA
-Renal ultrasound yesterday did not show any signs of medical kidney disease, suspect all acuity
-Home Bumex and ARB was held, was started on IV fluids with creatinine 1.3 and BUN 85
-Mental status has seemed to improve as well, not as emotionally volatile
-Renal function is normalized, mental status stable
-Medically stable for discharge today
-Recommend neuropsychiatric testing for dementia outpatient
-TSH/B12 normal
#Hypernatremia
-Bumex resumed 10/01, then held for sodium of 146
-Sodium normal today at 144
-Resume Bumex on Monday 10/09
-Needs repeat BMP with PCP in 1 week
#Stage 2 decubitus ulcer of buttocks/sacrum
Wound care
#Right pleural effusion
-Chronic, unclear etiology, no known history of malignancy
-Home meds include Bumex which is held for prerenal ERIC
-Chest x-ray did show effusion of the right base, no previous x-ray to compare
-X-ray showed slight enlargement
-Status post right thoracentesis draining 1.1 L on 10/03, exudative by light criteria
-Resume Bumex on Monday 10/09
#Essential hypertension
-No known history of systemic complications; Home meds include atenolol, irbesartan; also on Bumex
-Irbesartan and Bumex are currently held in the context of prerenal ERIC as above
-Blood pressure currently within goal range for hospital stay
#Chronic iron deficiency anemia
-Home medications include ferrous sulfate and vitamin B12 supplementation
-Presented with hemoglobin of 10.7, hemoglobin 10.9 which is probably baseline
-No signs or symptoms of bleeding at this time
#Chronic low back pain/fracture of same
#Peripheral neuropathy
-Home medications include oxycodone, lidocaine patch, gabapentin
-No known history of diabetes or chemotherapy, suspect neuropathy related to back
-States that her pain is currently at baseline on home regimen
#GERD
-No known history of PE or erosive disease, no recent known EGD
-Home regimen includes daily PPI which has been continued
-No signs of bleeding or other red flag symptoms
DVT prophylaxis�subcu heparin
DNR
Updated son/daughter on phone 10/03, 10/04
Physical Exam
General: No acute distress
HEENT: Normocephalic, Atraumatic, EOMI, MMM
Respiratory: Clear to Auscultation bilaterally
Cardiac: Normal S1/S2, Regular Rate and Rhythm
GI: Soft, Nontender, Nondistended, Normal Bowel Sounds
Extremities: No Clubbing, Cyanosis, or Edema
Neuro: Pleasantly confused
Anticipated Discharge: Today
Subjective/Interval History
-
Date of Service: October 05, 2023
Patient reports her breathing is improved after thoracentesis. No fever, no vomiting.
Objective Data
-
Labs:
Laboratory Results
10/05/23
05:03
Sodium 144
Potassium 4.5
Chloride 111 H
Carbon Dioxide 24
BUN 35 H
Creatinine 0.8
Glucose 110 H
Calcium 9.0
Vital Signs:
Vital Signs
Temp Pulse Resp BP Pulse Ox
97.8 F 74 18 123/59 98
10/05/23 07:29 10/05/23 07:29 10/05/23 07:29 10/05/23 07:29 10/05/23 07:29
I&O
08/27/24 08/28/24 08/29/24
06:59 06:59 06:59
Intake Total 1140 / 1140 240 / 240
Output Total 100 / 100
Balance 1040 / 1040 240 / 240
[2023-10-05] MEDS: PEPCID 20 MG PO (10:05)
[2023-10-05] MEDS: TENORMIN 50 MG PO (10:05)
[2023-10-05] MEDS: VITAMIN B-12 1000 MCG PO (10:05)
[2023-10-05] MEDS: FEOSOL 325 MG PO (10:05)
[2023-10-05] MEDS: NEURONTIN 200 MG PO (10:05)
[2023-10-05] MEDS: HEPARIN 5000 UNITS SC (10:06)
[2023-10-05] MEDS: LIDOCAINE 4% PATCH 1 PATCH TOPICAL (10:06)
[2023-10-05] MEDS: ANTIFUNGAL CLEAR 1 APPLIC TOPICAL (10:06)
--- NOTE | 2023-10-05 11:42 | W.DCSUMMARY ---
Discharge Summary
Discharge Data
Date of Admission: 09/29/23
Date of Discharge: 10/05/23
-
Pending Results: No
Hospital Course
Discharge diagnosis:
Acute toxic metabolic encephalopathy
Probable undiagnosed dementia
Acute kidney injury
Uremia
Hypernatremia
Right pleural effusion
Stage II decubitus ulcer, present upon admission
Chronic iron deficiency anemia
Chronic lower back pain
Gastroesophageal reflux disease
Procedures:
10/04/23 Right thoracentesis draining 1150 cc of pleural fluid
Hospital course:
88-year-old female with T2DM, HTN, HLD, PVD, GERD, chronic low back pain, OTONIEL, and H/O pleural effusion presented with worsening confusion, and was admitted for acute kidney injury. Family reports that patient has had fluctuating mental status over
the past few months, with decreased eating and drinking. She was on Bumex 1 mg daily. Her Bumex was held. She received IV fluids. Her creatinine normalized, her uremia improved.
Patient's mentation also improved. She became oriented to person and place but not time. It is suspected that she may have underlying undiagnosed dementia. It is recommended to the family that she undergoes neuropsychiatric testing outpatient
with Dr. Roberth Hall.
Patient was resumed on her Bumex at a decreased dose of 0.5 mg daily. However, she became hypernatremic with a sodium of 146. This was held. She underwent right thoracentesis, draining 1150 cc of pleural fluid, transudative in nature. Patient's
hypernatremia resolved.
Patient was seen in conjunction with PT, who recommend short-term rehab. Her insurance denied the short-term rehab stay. Patient is medically stable for discharge back to [facility]. She has been instructed to resume her Bumex at a decreased
dose of 0.5 mg daily on 10/10/2023. She needs a repeat BMP with her PCP in 1 week.
Disposition: [facility] memory care unit with home health
Discharge planning: Required 40 minutes
Discharge Plan
-
Patient Disposition: Home with Home Care
Discharge Diagnosis/Procedures:
Metabolic encephalopathy
Suspected dementia
Right pleural effusion status post thoracentesis
Acute kidney injury
Hypernatremia
Condition: Good
Diet: 2 Gram Sodium and Restrict fluids to 64 oz
Activity: As tolerated
Additional Activity: Schedule follow-up appointment with primary care doctor after discharge from rehab
Driving Restrictions: No driving
Bathing Restrictions: None
Blood Work: Repeat BMP with PCP in week
Other Services: PT and OT
Specialty Instructions: Weigh Daily- Call MD for wt gain/loss 3 lbs overnight/5 lbs in 1 week
Activity Restrictions/Additional Instructions:
Start bumex 0.5 mg daily on 10/10/23. Repeat BMP with PCP in week.
Please follow-up with Dr. Roberth Hall for neuropsychiatric testing for dementia.
Wound Care Instructions Sacrum/Buttocks- Clean with soap and water and gently pat dry. Apply Desenex powder to fungal appearing skin and zinc barrier ointment to areas of MASD. Perform BID and PRN with incontinence care.
Static Air Overlay
Keep Heels off-loaded with pillows under calves when in bed
Adhesive foam to heels Q 3 days and PRN if loose or soiled
Turning schedule
Frequent continence care
Instructions: Acute kidney injury
Referrals:
Roberth Hall PSY [Specified Professional Personl] - in two to three weeks
Johnna Biswas CRNP [Family Provider] - in one week
Additional Discharge Medication Instructions: Reduced bumetanide from 1 mg to 0.5 mg daily - start taking 10/10/23.
Stop taking irbesartan
Prescriptions:
New
bumetanide 0.5 mg Tablet
0.5 mg PO DAILY 30 Days Qty: 30 0RF
Continued
sennosides [senna] 8.6 mg Tablet
17.2 mg PO BID
acetaminophen [Tylenol] 325 mg Tablet
650 mg PO Q6HPRN PRN (Reason: mild pain)
lidocaine 4 % Adhesive Patch,Medicated
1 patch TOPICAL DAILY
cyanocobalamin (vitamin B-12) 1,000 mcg Tablet
1,000 mcg PO DAILY
melatonin 3 mg Tablet
3 mg PO HS
ferrous sulfate 325 mg (65 mg iron) Tablet
325 mg PO DAILY
docusate sodium [Colace] 100 mg Capsule
100 mg PO DAILY
gabapentin 100 mg Capsule
200 mg PO BID
atenolol 50 mg Tablet
50 mg PO DAILY
oxycodone 5 mg Tablet
5 mg PO Q6HPRN PRN (Reason: severe pain)
calcium carbonate-vitamin D3 [Calcium 500 + D] 500 mg-10 mcg (400 unit) Tablet
1 tab PO BID
omeprazole 20 mg Tablet,Delayed Release (Dr/Ec)
20 mg PO DAILY
Discontinued
bumetanide [Bumex] 1 mg Tablet
1 mg PO DAILY
irbesartan [Avapro] 150 mg Tablet
150 mg PO QPM
Discharge Orders:
Discharge Patient (As Directed); Ordered 10/05/23
Ordered By: Jamar Ospina
Discharge Date and Time
Print Language: GREEK
--- NOTE | 2023-10-05 12:38 | CM ---
CM reviewed chart, patient for discharge today. CM placed call to patients daughter in law, Jacquie, to discuss discharge today and ambulance transport time, scheduled for 5:30 p.m. IMM reviewed with Jacquie, placed in chart. CM placed call to [facility], spoke to nurse, relayed transport time. Update to [facility] with discharge. CM will continue to follow for all discharge planning needs.
Plan; return to with [facility], 5:30 p.m. ambulance transport.
:
Report: [phone]

[facility]: [phone]
--- NOTE | 2023-10-05 14:15 | WOUNDNOTE ---
[facility] RN NOTE: Patient visited prior to discharge later today. Reviewed chart and spoke to SALLY Garcia. Patients sacrum/buttocks is non-blanchable red and there are no open areas. Heels covered with adhesive foam. Patient demonstrates ability to turn
with minimal assist and continues on properly inflated static air overlay. Heels were off-loaded with use of pillow and air cushion under calves. Patient reports poor appetite. Encouraged patient to focus on protein when eating her meals. Plan is
for return to [facility] at 5pm today.
[2023-10-05 15:00] VITALS: BP 105/46
[2023-10-07 11:54] LABS: Syphilis/T. pallidum Ab Reflex Negative (Negative)
== END 2023-10-05 19:09 | disposition home health service (06) | DRG 682 ==
LOC: 4 WEST ACU 16:19
PROVIDERS: Physician Assistant Medical; Radiology Vascular & Interventional Radiology; Registered Nurse; ADMITTING PHYSICIAN Internal Medicine; ATTENDING PHYSICIAN Family Medicine; EMERGENCY PHYSICIAN Emergency Medicine; FAMILY PHYSICIAN Nurse Practitioner Family
PROC: 0W993ZZ Drainage of Right Pleural Cavity, Percutaneous Approach (ICD-10-PCS; 2023-10-04)
DX: N17.9 Acute kidney failure, unspecified (principal); G92.8 Other toxic encephalopathy; E87.0 Hyperosmolality and hypernatremia; F03.94 Unspecified dementia, unspecified severity, with anxiety; F05 Delirium due to known physiological condition; J90 Pleural effusion, not elsewhere classified; S32.10XA Unspecified fracture of sacrum, initial encounter for closed fracture; Z66 Do not resuscitate; E78.00 Pure hypercholesterolemia, unspecified; E11.51 Type 2 diabetes mellitus with diabetic peripheral angiopathy without gangrene; I10 Essential (primary) hypertension; K21.9 Gastro-esophageal reflux disease without esophagitis; D50.9 Iron deficiency anemia, unspecified; E86.0 Dehydration; I87.2 Venous insufficiency (chronic) (peripheral); G89.29 Other chronic pain; L89.152 Pressure ulcer of sacral region, stage 2; E11.42 Type 2 diabetes mellitus with diabetic polyneuropathy; Z79.891 Long term (current) use of opiate analgesic; Z79.899 Other long term (current) drug therapy; Z11.52 Encounter for screening for COVID-19
CPT/HCPCS: 88305; 32555; 51701; 70450; 71045; 76770; 80048; 80053; 81003; 82607; 82962; 83605; 83615; 83986; 84155; 84157; 84443; 85025; 85027; 86780; 87015; 87070; 87205; 87811; 88112; 93005; 96360; 97110; 97162; 97167; 97530; 99285

== ENCOUNTER 2023-10-07 20:12 | Emergency (ER) | payer OTHER, SELFPAY ==
[2023-10-07 20:19] VITALS: BP 142/59
[2023-10-07 20:20] VITALS: BP 142/59
[2023-10-07 20:25] VITALS: BMI 24.7
[2023-10-07 21:00] VITALS: BP 114/53
[2023-10-07 22:00] VITALS: BP 125/58
[2023-10-07] MEDS: ZOFRAN 4 MG IV (22:31)
[2023-10-07] MEDS: DILAUDID 0.25 MG IV (22:32)
[2023-10-07 23:05] VITALS: BP 131/56
--- NOTE | 2023-10-07 23:21 | ED.MUSCINJ ---
HPI-Injury
General
Chief Complaint: Fall
Source: patient and senior living
Exam Limitations: none
Time Seen by Provider: 10/07/23 20:16
Nursing documentation reviewed up to this point in time: agreed with
History of Present Illness-Injury
Is this injury a work related problem?: No
Is pt an associate of [facility]/[place]?: No
Initial Injury comments:
Patient states she tried to transfer from her wheelchair to her bed without assitance and began to fall. States she was able to slowly lower self to ground. Denies hitting her head. Complains of pain to mid and lower back. Brought to ED via EMS
for eval. No other complaints.
Past History
Past History
ED Past Medical History: GERD, HTN, Hypercholesterolemia, Renal failure and Psychiatric
ED Past Surgical History: Orthopedic
Social History
Tobacco: Non-smoker
Alcohol: None
Drug: None
Living: assisted living
Review of Systems
Review of Systems
Allergies reviewed?: Yes
All Other Systems: ROS reviewed and negative except as documented in HPI and ROS
Constitutional: Reports no symptoms
EENT: Reports no symptoms
Respiratory: Reports no symptoms
Cardiac: Reports no symptoms
ABD/GI: Reports no symptoms
Musculoskeletal: Reports back pain (mid and lower back pain)
Skin: Reports no symptoms
Neurological: Reports no symptoms
Psychiatric: Reports no symptoms
Musculoskeletal Injury Exam
Musculoskeletal Injury Exam
Middle Back:
Pain with Movement?: Mild
Tender to palpation?: Mild
Soft tissue swelling?: None
External deformity and angulation?: None
Joint effusion?: None
Contusion?: Mild
Hematoma-local bleeding into tissue?: None
Strain- Sprain- Tear (Connective tissue injury)?: None
Crepitus with movement?: No
Joint instability?: No
Malalignment/deformity?: No
Range of motion: Limited
Distal skin color and temperature: normal-warm & good color
Capillary Refill: normal
Normal distal neurovascular exam?: Yes
Bilateral Lower Back:
Pain with Movement?: Moderate
Tender to palpation?: Moderate
Soft tissue swelling?: None
Joint effusion?: None
Contusion?: Moderate
Hematoma-local bleeding into tissue?: None
Strain- Sprain- Tear (Connective tissue injury)?: None
Crepitus with movement?: No
Joint instability?: No
Malalignment/deformity?: No
Range of motion: Limited
Distal skin color and temperature: normal-warm & good color
Capillary Refill: normal
Normal distal neurovascular exam?: Yes
Phy Exam
General Physical Exam
General Presentation: well appearing and no apparent distress
General age: appears stated age
General Skin: warm and dry
General Habitus: normal
General Mental: alert
Cardiovascular Exam
Cardiovascular Exam: regular rate/rhythm
Pulmonary Exam
Pulmonary Exam: no respiratory distress and chest non tender
Gastrointestinal Exam
Gastrointestinal Exam: non tender, soft and no organomegaly
Musculoskeletal Exam
Musculoskeletal Exam: neuro vasc intact
Skin Exam
Skin Exam: normal color, warm/dry and no rash
Psychiatric Exam
Psychiatric Exam: normal mood/affect
Injury Course
Orders/Labs/Results
Orders:
Orders
10/07/23 22:27
HYDROmorphone [Dilaudid] 0.25 mg IV NOW STA
Ondansetron Injectable [Zofran] 4 mg IV NOW STA
Lumbar Spine Complete, 4 View [CR Lumbar Spine Comp Min 4 Vw*] Urgent
Comment:
Reason For Exam: submit
Thoracic Spine 3 Views CR [CR Thoracic Spine 3 Views] Urgent
Comment:
Reason For Exam: pain
*Radiology
Radiology exam reviewed: radiology read reviewed
*Pulse Oximetry
Patient hypoxic: no
*Critical Care Note
Total Time (30-74mins, 75-104mins- exclusive of procedures): Not Applicable
Update Note
Update Note:
Patient tried unsuccessfully to transfer self from chair to bed tonight without assistance. SHe was able to lower self to floor. Complains of lower back pain. Xrays reviewed. Improved with pain medication. SHe is discharged back to [place], followup
with PCP 1-2 days.
ED Attending Note
-
Portions of this chart may have been created with voice recognition software.� Occasional wrong word or��sound alike� substitutions may have occurred due to the inherent limitations of voice recognition software.
Discharge Plan
Departure
Patient Disposition: Assisted/SNF
Date of Disposition: 10/07/23
Time of Disposition: 23:16
Condition: Fair
Covid-19: Not Applicable
Discharge Problem:
Back pain
Instructions: Preventing falls in adults, Back Pain
Prescriptions:
No Action
sennosides [senna] 8.6 mg Tablet
17.2 mg PO BID
acetaminophen [Tylenol] 325 mg Tablet
650 mg PO Q6HPRN PRN (Reason: mild pain)
lidocaine 4 % Adhesive Patch,Medicated
1 patch TOPICAL DAILY
cyanocobalamin (vitamin B-12) 1,000 mcg Tablet
1,000 mcg PO DAILY
melatonin 3 mg Tablet
3 mg PO HS
ferrous sulfate 325 mg (65 mg iron) Tablet
325 mg PO DAILY
docusate sodium [Colace] 100 mg Capsule
100 mg PO DAILY
gabapentin 100 mg Capsule
200 mg PO BID
atenolol 50 mg Tablet
50 mg PO DAILY
oxycodone 5 mg Tablet
5 mg PO Q6HPRN PRN (Reason: severe pain)
calcium carbonate-vitamin D3 [Calcium 500 + D] 500 mg-10 mcg (400 unit) Tablet
1 tab PO BID
omeprazole 20 mg Tablet,Delayed Release (Dr/Ec)
20 mg PO DAILY
bumetanide 0.5 mg Tablet
0.5 mg PO DAILY 30 Days Qty: 30 0RF
Referrals:
Johnna Biswas CRNP [Family Provider] - Follow up in 2-3 days
Interventions
Interventions:
*Risk Screen - Suicide Last Done: 10/07/23 20:25
*General Assessment Last Done: 10/07/23 20:25
*Neglect/Abuse Screening Last Done: 10/07/23 20:25
ED- Fall Risk Assessment Last Done: 10/07/23 20:25
*ED COVID-19 Vaccine History Last Done: 10/07/23 20:25
*Nursing Disposition Last Done: 10/08/23 02:12
ED-Musculoskeletal Assessment Last Done: 10/07/23 20:25
ED- Neurological Assessment Last Done: 10/07/23 20:25
ED-Skin Assessment Last Done: 10/07/23 20:25
Discharge Date and Time
Discharge Date/Time: 10/08/23 02:15
Print Language: KHMER
[2023-10-08] VITALS: BP 124/54
[2023-10-08 01:00] VITALS: BP 111/48
[2023-10-08 02:00] VITALS: BP 129/51
== END 2023-10-08 02:15 ==
LOC: EMR 20:12
PROVIDERS: EMERGENCY PHYSICIAN Student in an Organized Health Care Education/Training Program; FAMILY PHYSICIAN Nurse Practitioner Family
DX: M54.50 Low back pain, unspecified (principal); K21.9 Gastro-esophageal reflux disease without esophagitis; E78.00 Pure hypercholesterolemia, unspecified; I12.9 Hypertensive chronic kidney disease with stage 1 through stage 4 chronic kidney disease, or unspecified chronic kidney disease; N18.9 Chronic kidney disease, unspecified
CPT/HCPCS: 99283; 96374; 96375; 72072; 72110

== ENCOUNTER 2023-11-01 19:48 | Inpatient (IN) | payer OTHER, SELFPAY ==
--- NOTE | 2023-11-01 16:41 | ED.GENMED ---
History of Present Illness
General
Chief Complaint: Fever
Time Seen by Provider: 11/01/23 16:40
History of Present Illness
History of Present Illness:
HPI: I spoke to EMS for history. She reportedly does not use oxygen at baseline but appeared short of breath to staff at [facility] and EMS was called. She was found to be febrile upon arrival here and EMS also noted that she
felt warm to touch.
EXAM:
GENERAL: The patient is acutely ill in appearance
HEENT: Dry oral mucosa
CARDIOVASCULAR: No murmurs, normal heart rate, regular rhythm, No chest wall tenderness
PULMONARY: The patient is 88% on room air, she is in moderate to severe respiratory distress, she is tachypneic, there is significant abdominal accessory muscle use, decreased breath sounds at the right base
ABDOMEN: Soft with no peritoneal signs, no tenderness
NEUROLOGIC: Excellent strength all extremities, no coordination deficits
PSYCHIATRIC: The patient appears confused, she is answering questions in 2 word sentences
EXTREMITIES: Nontender, no edema, decreased active range of motion at the left lower extremity,, knee immobilizer noted to the left lower extremity
SKIN: Focal area of ecchymosis noted to the right lower quadrant, there is some skin breakdown over the sacral region that was also present last admission
TIME OF INITIAL ENCOUNTER: 4:40 PM
NUMBER AND COMPLEXITY OF PROBLEMS ADDRESSED AT THE ENCOUNTER
� Chronic conditions affecting care: The patient was here recently with ERIC, hypernatremia, right-sided pleural effusion
� Acute Exacerbation and/or Progression of Chronic Illness: This is an acute problem
� Differential Diagnosis includes: Sepsis, pneumonia, CHF, pleural effusion
AMOUNT AND/OR COMPLEXITY OF DATA TO BE REVIEWED AND ANALYZED
� I performed an independent evaluation of and my interpretation is:
EKG: Sinus 93, left axis deviation, nonspecific ST abnormality, baseline artifact noted
CT:
X-rays: Chest x-ray by my read shows pleural effusion on the right
Laboratory Studies: White count 9.2, hemoglobin 11.2, BUN 29, creatinine 1.0, initial lactic 3.9, COVID-negative, flu negative
Other:
� Review of other/old records: I reviewed the discharge summary from 10/05/2023. At that time the patient came in with worsening confusion and was admitted for ERIC. At that time she came in with decreased oral intake. Her Bumex
was held at that time and she received fluids and her creatinine improved. The discharge summary also notes that there was suspicion that she may have underlying undiagnosed dementia. She did have a right-sided thoracentesis last admission.
� Clinical information was obtained by an independent historian: I spoke to EMS upon arrival
� Prescriptions/Medications Considered but not given:
� Further testing considered but not performed:
RISK OF COMPLICATIONS AND/OR MORBIDITY OR MORTALITY OF PATIENT MANAGEMENT
� Social determinants of health affecting care: The patient came in from [facility]
� Discussion with other providers: Hospitalist, Dr. Piedra for admission to the hospital
� Escalation of care including admission/observation vs risk of discharge considered: The patient is ill-appearing upon arrival. She appears very dehydrated but her renal function is normal. She was given IV fluids. Lactic
acid is 3.9. I am concerned for sepsis. She was initially given IV fluids however BNP is rather elevated and she does have the effusion so we will just hold off on additional IV fluids at this time.
Past History
Past History
ED Past Medical History: GERD, HTN, Hypercholesterolemia, Renal failure and Psychiatric
ED Past Surgical History: Orthopedic
Social History
Tobacco: Non-smoker
Alcohol: None
Drug: None
Living: assisted living
Phy Exam
Physical Exam
Physical Exam:
See HPI
Sepsis
Sepsis Screening
Sepsis Assessment: Sepsis
Sepsis Screen
Sepsis Screen: Sepsis
Date: 11/01/23
Time: 19:30
Course
Orders/Labs/Results
Orders:
Orders
11/01/23 16:40
Urinalysis Reflex To Culture Urgent
Date Specimen was Collected: 11/01/23
Time Specimen was Collected: 17:02
0.9% Sodium Chloride 1000 ml [Nss] 1,000 ml IV BOLUS
Acetaminophen [Tylenol/Feverall] 650 mg RECTAL NOW STA
11/01/23 16:47
COVID-19 Antigen Urgent
Source: Nasal Swab
Complete Blood Count/With Diff Urgent
Comprehensive Metabolic Panel Urgent
Comment: Add on LFTs
Direct Bilirubin Urgent
Comment: ADD ON
Lactic Acid Q4H
Comment: CANCEL 2nd LACTIC ACID IF 1st LACTIC ACID IS LESS THAN 2
Magnesium Urgent
NT-proBNP Urgent
Troponin I Urgent
Blood Culture Urgent
AMBAR Source: Blood/Venous
Specimen Description:
Influenza A+B Rapid Molecular Urgent
AMBAR Source: Nasal Swab
Specimen Description:
11/01/23 16:52
CR Chest Portable - 1 View Urgent
Comment:
Reason For Exam: sepsis
Reason Study Needs to be Portable: Patient Unstable
11/01/23 17:18
Electrocardiogram (*1) Urgent
Reason for Study: Shortness of Breath
EKG- Treatment ONCE
11/01/23 17:45
Cefepime HCl [Maxipime] 1,000 mg IV NOW STA
11/01/23 17:53
Sterile Water [Sterile Water For Injection] 10 ml .ROUTE .[facility]
11/01/23 18:00
VANCOMYCIN Pharmacy to Dose [VANCOCIN Pharmacy to Dose] 1 each Pharmacy To Prepare [Call Pharmacy To Prepare] 0 ml IV PER PROTOCOL
11/01/23 18:01
Blood Culture Routine
AMBAR Source: Blood/Venous
Specimen Description:
11/01/23 18:36
Vancomycin [Vancocin] 1,500 mg 0.9% Sodium Chloride [Nss] 20 ml 0.9% Sodium Chloride 250 ml [Nss] 250 ml IV NOW
11/01/23 18:56
Add On- LAB Urgent
Tests Added?: LFTs
11/01/23 19:11
CT Abd/pel W Iv And Oral Contr Urgent
Comment:
Reason For Exam: fever, abdominal tenderness
Iohexol [Omnipaque] See Protocol PO NOW STA
11/01/23 19:[address] [CT Chest W/o Iv Contrast] Urgent
Comment:
Reason For Exam: pleural effusion
11/01/23 20:45
Lactic Acid Q4H
Comment: CANCEL 2nd LACTIC ACID IF 1st LACTIC ACID IS LESS THAN 2
Abnormal Lab Results
11/01/23
16:47
RBC 3.98 L 10^6/uL
(4.20-5.40)
Hgb 11.2 L g/dL
(12.0-16.0)
Hct 34.6 L %
(37.0-47.0)
MCHC 32.4 L g/dL
(33.0-37.0)
RDW 16.0 H %
(11.5-14.5)
Absolute Neuts (auto) 8.6 H 10^3/uL
(1.4-6.5)
Absolute Lymphs (auto) 0.5 L 10^3/uL
(1.2-3.4)
Neutrophils % 93.6 H %
(42.2-75.2)
Lymphocytes % 5.0 L %
(20.5-51.1)
Monocytes % 0.8 L %
(1.7-9.3)
Chloride 108 H mmol/L
(98-107)
Carbon Dioxide 21 L mmol/L
(22-30)
BUN 29 H mg/dl
(7-17)
Glucose 125 H mg/dl
(70-99)
Lactic Acid 3.9 H mmol/L
(0.7-2.0)
11/01/23 16:47
11/01/23 16:47
Vital Signs
Initial and Last Documented VS:
Initial Vital Signs
Temp Resp Pulse Ox
103.2 F H 32 88
11/01/23 16:41 11/01/23 16:41 11/01/23 16:41
Last Documented Vital Signs
Temp Pulse Resp BP Pulse Ox
103.2 F H 88 17 98/45 95
11/01/23 16:41 11/01/23 18:51 11/01/23 18:51 11/01/23 18:00 11/01/23 18:51
*Critical Care Note
Total Time (30-74mins, 75-104mins- exclusive of procedures): Not Applicable
ED Attending Note
-
Portions of this chart may have been created with voice recognition software.� Occasional wrong word or��sound alike� substitutions may have occurred due to the inherent limitations of voice recognition software.
Discharge Plan
Departure
Patient Disposition: Admit
Date of Disposition: 11/01/23
Time of Disposition: 17:50
Presentation/result/management discussed w/ accepting MD/DO: Hospitalist
Discharge Problem:
Sepsis
Prescriptions:
No Action
sennosides [senna] 8.6 mg Tablet
17.2 mg PO BID
acetaminophen [Tylenol] 325 mg Tablet
650 mg PO Q6HPRN MDD 3000 mg PRN (Reason: mild pain/temp >100)
lidocaine 4 % Adhesive Patch,Medicated
1 patch TOPICAL DAILY
melatonin 3 mg Tablet
3 mg PO HS
ferrous sulfate 325 mg (65 mg iron) Tablet
325 mg PO DAILY
docusate sodium [Colace] 100 mg Capsule
100 mg PO Q48H
gabapentin 100 mg Capsule
100 mg PO BID
atenolol 50 mg Tablet
50 mg PO DAILY
omeprazole 20 mg Tablet,Delayed Release (Dr/Ec)
20 mg PO DAILY
bumetanide 0.5 mg Tablet
0.5 mg PO DAILY 30 Days Qty: 30 0RF
tramadol 50 mg Tablet
50 mg PO Q8HPRN PRN (Reason: moderate pain)
magnesium hydroxide [Milk of Magnesia] 400 mg/5 mL Suspension
30 ml PO [id number] PRN (Reason: day 3 no bm)
cyanocobalamin (vitamin B-12) 500 mcg Tablet
1,000 mcg PO DAILY
bisacodyl [Dulcolax (bisacodyl)] 10 mg Suppository
10 mg NE DAILYPRN PRN (Reason: constipation, mom ineffective)
Fleet Enema 19-7 gram/118 mL Enema
118 ml NE DAILYPRN PRN (Reason: constipation, dulcolax ineffective)
calcium carbonate-vitamin D3 [Calcium 500 + D (D3)] 500 mg-3.125 mcg (125 unit) Tablet
1 tab PO BID
zinc oxide 13 % Cream
1 applic TOPICAL Q8H
Referrals:
Clarence Negrete DO [Family Provider] -
Interventions
Interventions:
*Risk Screen - Suicide Last Done: 11/01/23 16:56
*General Assessment Last Done: 11/01/23 18:50
*Neglect/Abuse Screening Last Done: 11/01/23 16:56
*ED COVID-19 Vaccine History Last Done: 11/01/23 17:07
ED- Neurological Assessment Last Done: 11/01/23 17:06
ED-Skin Assessment Last Done: 11/01/23 17:06
Discharge Date and Time
Print Language: AZERI
[2023-11-01 16:42] VITALS: BMI 25.1
[2023-11-01 16:43] VITALS: BP 123/60
[2023-11-01] MEDS: TYLENOL/FEVERALL 650 MG RECTAL (16:48)
[2023-11-01] MEDS: NSS 1000 IV ×2 (16:50→22:09)
[2023-11-01 17:00] VITALS: BP 98/46
[2023-11-01 17:00] LABS: % Basophils 0.2 % (0-2); % Eosinophils 0.1 % (0-6); % Immature Granulocytes 0.3 % (0-0.5); % Monocytes 0.8 % (1.7-9.3); % Neutrophils 93.6 % (42.2-75.2); Absolute Lymphocytes 0.5 10^3/uL (1.2-3.4); Absolute Monocytes 0.1 10^3/uL (0.1-0.6); Absolute Neutrophils 8.6 10^3/uL (1.4-6.5); Hematocrit 34.6 % (37.0-47.0); Hemoglobin 11.2 g/dL (12.0-16.0); Mean Corp Hgb Conc. 32.4 g/dL (33.0-37.0); Mean Corpuscular Hgb 28.1 pg (27.0-31.0); Mean Corpuscular Volume 86.9 fL (81.0-99.0); Mean Platelet Volume 9.8 fL (7.4-10.4); Nucleated Red Blood Cells % 0 %; Platelet Count 226 10^3/uL (130-400); Red Blood Cell Count 3.98 10^6/uL (4.20-5.40); White Blood Cell Count 9.2 10^3/uL (4.8-10.8)
[2023-11-01 17:12] LABS: Lactic Acid 3.9 mmol/L (0.7-2.0)
[2023-11-01 17:14] LABS: Blood Urea Nitrogen 29 mg/dl (7-17); Calcium 8.6 mg/dl (8.4-10.2); Carbon Dioxide 21 mmol/L (22-30); Chloride 108 mmol/L (98-107); Estimated Creatinine Clearance 33 ml/min; Glucose 125 mg/dl (70-99); Magnesium 1.9 mg/dl (1.6-2.3); Potassium 4.1 mmol/L (3.5-5.1); Sodium 145 mmol/L (135-145); eGFR 54.53
[2023-11-01 17:15] LABS: COVID-19 Antigen Negative (Negative)
[2023-11-01 17:25] LABS: NT-proBNP 3920 pg/ml; Troponin I 0.015 ng/ml
[2023-11-01 18:00] VITALS: BP 98/45
[2023-11-01] MEDS: MAXIPIME 1000 MG IV ×2 (18:02→23:14)
[2023-11-01 19:00] VITALS: BP 93/43
[2023-11-01] MEDS: OMNIPAQUE 50 ML PO (19:24)
--- NOTE | 2023-11-01 19:29 | HPS.HSE ---
Family Physician
-
Family Physician: Clarence Negrete DO
Chief Complaint
-
Shortness of Breath
History of Present Illness
Patient is an 88 y/o female past medical history of hypertension, diabetes, pleural effusion and cognitive impairment who presents with hypoxia and shortness of breath. Patient was sent from [facility] after noticed her to appear more short
of breath. Upon arrival to the emergency department she was noted to be hypoxic and febrile. Patient herself offers no complaints at the present time.
Medical History
Past Medical History
Past Medical History: Reports Other
Additional Past Medical History:
Essential Hypertension
Hyperlipidemia
Diabetes Insipidus
Diabetes Mellitus
Right Pleural Effusion
Ascites
Chronic Iron Deficiency Anemia
Chronic Pain due Sacral Fracture
Spinal Stenosis
Cognitive Impairment
GERD
Past Surgical History: Reports None
Social History
Tobacco: Non-smoker
Living: Group Home
Family History
Family History: Not pertinent
Allergies / Home Medications
Allergies reflects when Allergies were last updated in [employer].
Home Medications with original date entered in [employer]
Allergy/Medication List:
Allergies
Allergy/AdvReac Type Severity Reaction Status Date / Time
aspirin Allergy Unknown Verified 10/07/23 20:22
iodine Allergy Unknown Verified 10/07/23 20:22
Penicillins Allergy Unknown Verified 10/07/23 20:22
Home Medications
acetaminophen 325 mg tablet (Tylenol) 650 mg PO Q6HPRN PRN mild pain/temp >100 09/29/23
atenolol 50 mg tablet 50 mg PO DAILY Blood Pressure 09/29/23
docusate sodium 100 mg capsule (Colace) 100 mg PO Q48H constipation 09/29/23
ferrous sulfate 325 mg (65 mg iron) tablet 325 mg PO DAILY Supplement 09/29/23
gabapentin 100 mg capsule 100 mg PO BID pain 09/29/23
lidocaine 4 % topical patch 1 patch topical DAILY lower back 09/29/23
melatonin 3 mg tablet 3 mg PO HS sleep 09/29/23
omeprazole 20 mg tablet,delayed release 20 mg PO DAILY Gastrointestinal Issue 09/29/23
sennosides 8.6 mg tablet (senna) 17.2 mg PO BID constipation 09/29/23
bumetanide 0.5 mg tablet 0.5 mg PO DAILY pleural effusion 1 month #30 tabs 10/02/23
bisacodyl 10 mg rectal suppository (Dulcolax (bisacodyl)) 10 mg IN DAILYPRN PRN constipation, mom ineffective 11/01/23
calcium 500 mg (as carbonate)-vitamin D3 3.125 mcg (125 unit) tablet 1 tab PO BID 11/01/23
cyanocobalamin (vitamin B-12) 500 mcg tablet 1,000 mcg PO DAILY 11/01/23
magnesium hydroxide 400 mg/5 mL oral suspension (Milk of Magnesia) 30 ml PO [id number] PRN day 3 no bm 11/01/23
sodium phosphates 19 gram-7 gram/118 mL enema (Fleet Enema) 118 ml IN DAILYPRN PRN constipation, dulcolax ineffective 11/01/23
tramadol 50 mg tablet 50 mg PO Q8HPRN PRN moderate pain 11/01/23
zinc oxide 13 % topical cream 1 applic topical Q8H sacrum/buttocks 11/01/23
Review of Systems
-
Unable to obtain full review of systems at this time due to: Acuity
Physical Exam
Vital Signs
Vital Signs
Temp Pulse Resp BP Pulse Ox
103.2 F H 88 17 98/45 95
11/01/23 16:41 11/01/23 18:51 11/01/23 18:51 11/01/23 18:00 11/01/23 18:51
Physical Exam
General: Well Developed and Conversant
HEENT: NormoCephalic, Anicteric, Oxygen (Nasal cannula) and Other (Mucous membranes are dry)
Respiratory: Rales (Right upper lung meza), Non Labored Respirations and Decreased Breath Sounds (Right lower lung meza)
Cardiac: S1/S2 and Regular Rhythm
GI: Soft, Tender (Right upper quadrant) and Other (Mild fluid wave)
Musculoskeletal: No Clubbing, No Cyanosis, No Edema and Other (Left lower extremity knee immobilizer in place)
Skin: Warm and Dry
Neuro: Awake, Alert and Nonfocal/grossly intact
Psych: Calm
Laboratory Results
-
11/01/23 16:47
11/01/23 16:47
Laboratory Results
Lactic Acid 3.9 mmol/L (0.7-2.0) H 11/01/23 16:47
Troponin I 0.015 ng/ml 11/01/23 16:47
Data Reviewed
-
Diagnostic Radiology: Report Reviewed by me
Lab Data: Labs Reviewed by me
Impression/Plan
-
Acute Hypoxic Respiratory Insufficiency secondary to recurrent Right Pleural Effusion
-Continue supplemental oxygen
Sepsis secondary to possible pneumonia/empyema vs intra-abdominal infection
-Check Chest/Abd/Pelvis CT scan
-Check LFTs
-Continue vancomycin, cefepime and metronidazole
-Await blood cultures
Pleural Effusion / Ascites
-Consult IR for thoracentesis
-Bumex on hold due to hypotension
-Monitor Is&Os and Daily Weights
Essential Hypertension
-Hold atenolol as BP is running on the low side
GERD
-Continue Protonix
Chronic Anemia
-Hgb stable
Left Fibula Fracture
-Continue Left Knee Immobilization
DVT proph: Lovenox
Code STatus: DNR per [place] paperwork
[2023-11-01 19:38] LABS: ALT (SGPT) 17 U/L (0-35); AST (SGOT) 35 U/L (14-36); Albumin 2.7 g/dl (3.5-5.0); Alkaline Phosphatase 308 U/L (38-126); Direct Bilirubin 0.5 mg/dl (0.0-0.4); Total Bilirubin 0.9 mg/dl (0.2-1.3); Total Protein 6.6 g/dl (6.3-8.2)
--- NOTE | 2023-11-01 19:53 | W.PN.UPDATE ---
Update Note
Progress Note Update
This is an addendum to the H&P written by Thu Briggs on 11/01/2023.� Patient seen and examined independently with PA.� 88-year-old female past medical history of probable undiagnosed dementia, transudative right pleural effusion status post
thoracentesis in the past, stage II decubitus ulcer, iron deficient anemia, chronic back pain, GERD, presenting with hypoxemic respiratory failure/sepsis secondary to pneumonia/empyema versus intra-abdominal infection.
Patient requiring 4 L of oxygen.
On examination patient's abdomen is distended no overt tenderness.
Labs show lactic acidosis.� Fever of 103.2.� Chest x-ray shows large right pleural effusion.� Check CT chest abdomen pelvis to evaluate for intra-abdominal infection.� IV fluids.� Check blood culture.� Vancomycin/cefepime/Flagyl.� IR consulted for
thoracentesis.� Hold all antihypertensive/sedating medications.
[2023-11-01] MEDS: VANCOCIN 300 ML IV (19:58)
[2023-11-01] MEDS: VANCOCIN 300 MG IV (19:58)
[2023-11-01 20:00] VITALS: BP 110/52
--- NOTE | 2023-11-01 21:36 | PHA.VAN.IN ---
Assessment
- Assessment
Renal Function: Appears elevated from baseline (10/05/23 BASELINE SCR: 0.)
Concomitant Antimicrobials: CEFEPIME; FLAGYL
- Previous Dosing Experience
Previous Regimen: NONE
Plan
- Plan
Initial / Loading Dose: 1500MG
Maintenance Regimen: DOSING BY RANDOM LEVEL
Monitoring: RANDOM VANCOMYCIN LEVEL 11/02/23 AM
Pharmacokinetics Vancomycin I
- -
Patient Age: 88
Patient Sex: Female
Vancomycin Day #: 1
Indication: Pulmonary/Respiratory (SEPSIS)
Requesting Provider: ALONDRA
Height / Weight:
Height 5 ft 3 in
Actual Weight 64.3 kg
Pertinent Past Medical History: DM
- Vital Signs / Lab Results
Temp Pulse Resp BP Pulse Ox
103.2 F H 79 19 110/52 95
11/01/23 16:41 11/01/23 20:30 11/01/23 20:30 11/01/23 20:00 11/01/23 20:35
Lab Results - Hematology
11/01/23
16:47
WBC 9.2
Lab Results - Chemistry
11/01/23
16:47
BUN 29 H
Creatinine 1.0
Estimated Creat Clear 33
Albumin 2.7 L
11/01/23
16:47
Lactic Acid 3.9 H
Microbiology Results
11/01/23 16:47 Influenza Types A & B (JAMARI) - Final
Nasal Swab Negative for Influenza A & B, NAAT
Negative results must be combined with clinical observations
and patient history.
Nucleic Acid Amplification test (NAAT)performed on the
[employer] platform.
[2023-11-01 22:00] VITALS: BP 92/42
[2023-11-01] MEDS: SOLU-CORTEF 200 MG IV (22:04)
[2023-11-01] MEDS: BENADRYL 50 MG IV (22:04)
[2023-11-01 22:05] VITALS: BMI 23.8
[2023-11-01] MEDS: STERILE WATER FOR INJECTION 10 ML IV (23:14)
[2023-11-02] VITALS (21 sets, daily range): BP systolic 71–132; BP diastolic 43–96; PULSE 73; O2SAT 96; BMI 24.0
[2023-11-02 02:14] LABS: Lactic Acid 1.5 mmol/L (0.7-2.0)
--- NOTE | 2023-11-02 04:00 | PTCARENOTE ---
Pt admitted overnight. aaox3, but forgetful and confused at times. Denies pain. NSR, remains on 4LNC. IVF, ivabx. afebrile. Pt skin very excoriated and raw in her groin & perineum area, calazyme applied. Stage 2 on her b/l buttocks. WOC consulted.
No other issues at this time, bed alarm on. Call mason in reach.
[2023-11-02] MEDS: STERILE WATER FOR INJECTION 10 ML IV ×2 (05:13→17:55)
[2023-11-02] MEDS: MAXIPIME 2000 MG IV ×2 (05:13→17:55)
[2023-11-02 05:38] LABS: Hematocrit 33.8 % (37.0-47.0); Hemoglobin 10.5 g/dL (12.0-16.0); Mean Corp Hgb Conc. 31.1 g/dL (33.0-37.0); Mean Corpuscular Hgb 28.5 pg (27.0-31.0); Mean Corpuscular Volume 91.6 fL (81.0-99.0); Mean Platelet Volume 10.1 fL (7.4-10.4); Platelet Count 166 10^3/uL (130-400); Red Blood Cell Count 3.69 10^6/uL (4.20-5.40); White Blood Cell Count 16.7 10^3/uL (4.8-10.8)
[2023-11-02 05:40] LABS: ALT (SGPT) 16 U/L (0-35); AST (SGOT) 31 U/L (14-36); Albumin 2.5 g/dl (3.5-5.0); Alkaline Phosphatase 218 U/L (38-126); Blood Urea Nitrogen 31 mg/dl (7-17); Calcium 8.2 mg/dl (8.4-10.2); Carbon Dioxide 26 mmol/L (22-30); Chloride 110 mmol/L (98-107); Estimated Creatinine Clearance 30 ml/min; Glucose 179 mg/dl (70-99); LDH 208 U/L (120-246); Potassium 4.3 mmol/L (3.5-5.1); Sodium 144 mmol/L (135-145); Total Bilirubin 0.6 mg/dl (0.2-1.3); Total Protein 6.2 g/dl (6.3-8.2); eGFR 48.63
[2023-11-02 05:43] LABS: Vancomycin Random 16.1 ug/ml
[2023-11-02 07:25] LABS: Urine Albumin Trace (Neg - Trace); Urine Bilirubin Negative (Negative); Urine Character Clear (Clear); Urine Color Yellow; Urine Glucose Negative (Negative); Urine Ketone Trace (Negative); Urine Leukocyte Trace (Negative); Urine Nitrite Negative (Negative); Urine Occult Blood 4+ (Negative); Urine Specific Gravity 1.015 (<1.030); Urine Urobilinogen Negative (Neg - 1+)
--- NOTE | 2023-11-02 07:37 | W.PN.HOSP.TC ---
Addendum entered and electronically signed by Mervat Najera MD 11/02/23 21:44:
I saw and evaluated the patient independently. I reviewed the resident�s note and agree with findings and plan as documented by Dr. Martínez.
GENERAL: well developed, well nourished, female in no apparent distress
HEENT:NC/AT--O2 NC in [address]
HEART: regular rate and rhythm, +S1, +S2
LUNGS : clear to auscultation bilaterally
ABDOM: soft, nontender, nondistended, + bowel sounds
EXT: no cyanosis, clubbing, or edema on right leg--left leg swollen and in immobilizer
NEUROLOGIC: nonfocal
Acute Hypoxic Respiratory failure--on 4 L O2 with TME due to hypoxia-- secondary to recurrent Right Pleural Effusion--apprec IR for thoracentesis (2L out)--does not appear infected--taper O2 to off
Sepsis secondary to possible pneumonia/empyema vs intra-abdominal infection vs UTI--CT scans do not show PNA/PE, but do show cirrhosis, ascites, possible colitis, rectal neoplasm--for now cont vanco/cefepime/flagyl--pt with E. coli bacteremia--await
urine culture but pt without any abdominal complaints
Essential Hypertension--bumex/atenolol on hold for hypotension--resolved--consider restarting
Left Fibula Fracture with immobilizer and lower ext edema --US with acute DVT--start eliquis and ask CM to kalyn--Continue Left Knee Immobilization
GERD-Continue Protonix
Anemia of chronic disease-Hgb stable
Incidental adrenal mass--likely benign--1.7 cm left adrenal mass (possibly an adenoma)--Follow up with PCP
Stage II decubitus ulcer (POA) likely pressure injury--Wound care was consulted
DVT proph: Lovenox
Code Status: DNR as per [place] paperwork
updated son and [id number]--agreeable to have CM kalyn Ferguson once outpt pharmacy info obtained
time spent 55 minutes
Original Note:
Today's Communication/Plan
-
Peripheral Vascular US showed acute occlusive deep venous thrombosis in the left peroneal vein. Starting on Eliquis will be discussed with the family including the cost of it.
Assessment / Plan
Assessment / Plan
Assessment and Plan
Impression: Patient is a 88 year old female who presented to ER on 11/01/23 with hypoxia and shortness of breath. Upon arrival to the emergency department she was noted to be hypoxic and febrile.Upon arrival to the emergency department she was
noted to be hypoxic and febrile. Chest CT of the patient showed a large right pleural effusion. IR did thoracentesis on 11/02/23 and her Chest X-ray showed Improved aeration following right thoracentesis. The patient had her left leg in brace and
it was swollen. Peripheral Vascular US showed acute occlusive deep venous thrombosis in the left peroneal vein.
Assessment:
#Acute Hypoxic Respiratory Failure
-Secondary to transudative Right Pleural Effusion
-IR did thoracentesis:Chest X-ray showed:Improved aeration following right thoracentesis
-Continue supplemental oxygen
-Monitor Is&Os and Daily Weights
#Sepsis secondary to possible intra-abdominal infection
-Abd/Pelvis CT:Diagnostic possibilities are (1) severe portal hypertensive colopathy or (2) a severe infectious colitis.Severe diverticulosis in the descending and sigmoid colon.
-Continue vancomycin, cefepime and metronidazole
-Blood cultures:Gram Negative Bacilli, positive culture in progress
#Leukocytosis
-WBC increased from 9.2 to 16.7
-CBC follow up
-Infectious disease consultation can be considered
#Pleural Effusion / Ascites
-Consult IR for thoracentesis
-Bumex on hold due to hypotension
#Essential Hypertension
-Hold atenolol as BP is running on the low side
#DM
HBA1C 6.7
SSI
#GERD
-Continue Protonix
#Chronic Anemia
-Hgb stable
#Left Fibula Fracture
-PT/OT
-Allowed to weight bearing as tolerated
#Incidental adrenal mass
-1.7 cm left adrenal mass (possibly an adenoma)
-Follow up with PCP
#Stage II decubitus ulcer
Wound care was consulted
DVT proph: Lovenox
Peripheral Vascular US showed acute occlusive deep venous thrombosis in the left peroneal vein. Starting on Eliquis will be discussed with the family
Code STatus: DNR per [place] paperwork
Anticipated Discharge: 24 - 48 hours
Subjective/Interval History
-
Date of Service: November 02, 2023
The patient was seen in her bed and she denied having any complaint. She reported some pain in her left leg.
Objective Data
-
Labs:
Laboratory Results
11/01/23 11/02/23
16:47 05:12
WBC 16.7 H
Hgb 10.5 L
Hct 33.8 L
Plt Count 166 D
Sodium 144
Potassium 4.3
Chloride 110 H
Carbon Dioxide 26
BUN 31 H
Creatinine 1.1 H
Glucose 179 H
Calcium 8.2 L
Total Bilirubin 0.9 0.6
AST 35 31
ALT 17 16
Alkaline Phosphatase 308 H 218 H
Vital Signs:
Vital Signs
Temp Pulse Resp BP Pulse Ox
97.7 F 76 25 110/43 97
11/02/23 04:56 11/02/23 06:00 11/02/23 06:00 11/02/23 06:00 11/02/23 06:00
Review of Systems
-
EENT: Reports No Symptoms Reported
Respiratory: Reports Other
Cardiac: Reports No Symptoms
Abdomen/GI: Reports Diarrhea (only had one time in the morning)
Genitourinary: Reports No Symptoms
Musculoskeletal: Reports Other (left leg in brace )
Skin: Reports No Symptoms
Neuro: Reports No Symptoms
Physical Exam
-
General: Appears Chronically Ill
HEENT: Normocephalic and Atraumatic
Respiratory: Decreased Breath Sounds (Decreased Breath Sounds (Right lower lung meza)) and Other
Cardiac: Regular Rhythm and S1/S2
GI: Soft and Tender (mid abdominal area)
Musculoskeletal: Edema, Left Upper Extrem
Skin: Warm and Dry
Neuro: Awake, Alert and Oriented (Not oriented to time ( to year) )
[2023-11-02 08:25] LABS: Glycohemoglobin (HgbA1c) 6.7 % (4.0-5.6)
--- NOTE | 2023-11-02 09:22 | WOUNDNOTE ---
JULY RN note: Patient admitted with Sepsis.
See H&P for complete history. From [facility].
PMH: GERD,HTN,RF Psyche and L leg fracture.
Wound Location and type/assessment: Patient admitted with: Incontinent associated skin damage on sacrum and both buttocks, healing stage 2 PI on L buttock. Sacrum and buttocks are blanchable red, MASD pink yeasty appearing skin. Patient turned with
assist, needs help lifting L leg which is in an immobilizer. Patient incontinent of loose stool, continually oozing during assessment. Heels are blanchable pink. Removed L leg immobilizer to assess skin then placed back on. L lower posterior ankle
with small intact dry scab abrasion suspect from device, silicone foam applied to site. Scattered scabs and dry patches on legs. Assessed patient while emergency medical technician in .
Appetite: Fair.
Pressure redistribution devices in place: On air mattress, pillows placed under both legs.
Plan: Skin prep and small Exuderm thin applied to L buttock then Sacral silicone foam over sacrum. Adhesive foams to heels and offloading with pillows. Moisturized legs with A&D ointment, will order mineral oil to start tomorrow. Will order fungal
powder for skin on perineum. Will confirm orders with hospitalist and updated nurse Disa.
Updated care plan and will follow as needed.
Note to case management of equipment requested for discharge: None.
[2023-11-02] MEDS: TYLENOL 650 MG PO (09:30)
[2023-11-02] MEDS: PROTONIX 40 MG PO (09:31)
--- NOTE | 2023-11-02 09:51 | CM ---
Patient seen at bedside with resident. Patient from [facility]. CM reviewed chart and prior hospital stay. Patient at [facility] currently as [facility] under [employer]. CM called and spoke with Elida liaison from facility and she is checking on prior functioning and
weight bearing status in leg. CM spoke with patient son who indicated that best contact number was cell phone for Jacquie his and patient daughter in law. Patient had been living at [facility] prior to prior hospital stay and plan is for her to
return to SNF to complete rehab prior to returning to [facility]. CM will continue to follow for discharge planning needs. CM will continue to follow for discharge planning needs.
Plan; return to [facility]; patient will need updated auth when appropriate pending bed availability
[2023-11-02 11:40] LABS: Body Fluid pH 7.49
[2023-11-02 11:48] LABS: Body Fluid Mononuclear 78.4 %; Body Fluid Polymorphonuclear 21.6 %; Body Fluid WBC 116 /CUMM
[2023-11-02 11:49] LABS: Body Fluid Second Tech SS
[2023-11-02 11:57] LABS: Body Fluid Amylase 33 U/L; Body Fluid Glucose 181 mg/dl; Body Fluid LDH < 90 U/L; Body Fluid Protein < 2.0 g/dl; Body Fluid Triglycerides 43 mg/dl
[2023-11-02] MEDS: NSS IV (13:06)
--- NOTE | 2023-11-02 17:22 | PTCARENOTE ---
Pt tolerated thoracentesis this afternoon -2000mls cloudy pleural fluid drained. Pt was sent for US of LLE- impression: acute occlusive DVT in left peroneal vein. Dr. Najera and resident notified via TT.
[2023-11-02] MEDS: LOVENOX 40 MG SC (17:55)
--- NOTE | 2023-11-02 20:00 | PTCARENOTE ---
Received pt from previous shift. Assessment performed, see flowsheets. Pt lying comfortably in bed with no complaints at this time. NSR in the 80s on heart monitor. Lungs clear, on room air. LLE brace in place. Pt received first dose of eliquis
tonight as a DVT was found in the LLE.
[2023-11-02] MEDS: ELIQUIS 10 MG PO (20:52)
[2023-11-02] MEDS: DESENEX/MITRAZOL/ZEASORB 1 APPLIC TOPICAL (20:52)
[2023-11-03] VITALS (10 sets, daily range): BP systolic 119–155; BP diastolic 53–80; BMI 23.7
[2023-11-03] MEDS: MAXIPIME 2000 MG IV ×2 (05:11→17:07)
[2023-11-03] MEDS: STERILE WATER FOR INJECTION 10 ML IV ×2 (05:11→17:08)
--- NOTE | 2023-11-03 06:30 | W.PN.HOSP.TC ---
Addendum entered and electronically signed by Mervat Najera MD 11/03/23 13:35:
I saw and evaluated the patient independently. I reviewed the resident�s note and agree with findings and plan as documented by Dr. Martínez.
GENERAL: well developed, well nourished, female in no apparent distress
HEENT:NC/AT--off O2
HEART: regular rate and rhythm, +S1, +S2
LUNGS : clear to auscultation bilaterally
ABDOM: soft, nontender, distended, + bowel sounds
EXT: no cyanosis, clubbing, or edema on right leg--left leg swollen and in immobilizer
NEUROLOGIC: nonfocal
Acute Hypoxic Respiratory failure--on 4 L O2 with TME due to hypoxia-- secondary to recurrent Right Pleural Effusion--apprec IR for thoracentesis (2L out)--does not appear infected--resolved and off O2
Sepsis secondary to possible pneumonia/empyema vs intra-abdominal infection vs UTI--CT scans do not show PNA/PE, but do show cirrhosis, ascites, possible colitis, rectal neoplasm--fblood cultures positive for E. coli with negative urine culture--?
GI source with CT scan findings--cont cefepime
Essential Hypertension--bumex/atenolol on hold for hypotension--resolved--consider restarting
Left Fibula Fracture with immobilizer and lower ext edema --US with acute DVT--start eliquis and ask CM to kalyn--Continue Left Knee Immobilization--PT/OT
GERD-Continue Protonix
Anemia of chronic disease-Hgb stable
Incidental adrenal mass--likely benign--1.7 cm left adrenal mass (possibly an adenoma)--Follow up with PCP
Stage II decubitus ulcer (POA) likely pressure injury--Wound care was consulted
DVT proph: Lovenox
Code Status: DNR as per [place] paperwork
updated son and [id number] 11/02/23--agreeable to have DONNY Ferguson once outpt pharmacy info obtained
Original Note:
Today's Communication/Plan
-
Patient denies having difficulty with breathing and reports some abdominal discomfort.
Assessment / Plan
Assessment / Plan
Assessment and Plan
Impression: Patient is a 88 year old female who presented to ER on 11/01/23 with hypoxia and shortness of breath. Upon arrival to the emergency department she was noted to be hypoxic and febrile.Upon arrival to the emergency department she was
noted to be hypoxic and febrile. Chest CT of the patient showed a large right pleural effusion. IR did thoracentesis on 11/02/23 and her Chest X-ray showed Improved aeration following right thoracentesis. The patient had her left leg in brace and
it was swollen. Peripheral Vascular US showed acute occlusive deep venous thrombosis in the left peroneal vein. The results were discussed with the family yesterday and it is planning to start Eliquis once out pt pharmacy info obtained.
Assessment:
#Acute Hypoxic Respiratory Failure
-Secondary to transudative Right Pleural Effusion
-IR did thoracentesis:Chest X-ray showed:Improved aeration following right thoracentesis
-Weaned of supplemental oxygen yesterday. Today her O2 level on room air 94
-Monitor Is&Os and Daily Weights
#Sepsis secondary to possible intra-abdominal infection
-Abd/Pelvis CT:Diagnostic possibilities are (1) severe portal hypertensive colopathy or (2) a severe infectious colitis.Severe diverticulosis in the descending and sigmoid colon.
-Blood cultures:Gram Negative Bacilli, positive culture shows E coli
-Urine culture: Negative
-Pleural culture: Negative
-Continue cefepime
-Stop vancomycin and metronidazole
-Another blood culture was ordered
-X ray: Obstruct Series W/PA Chest ordered due abdominal pain and tenderness
#Leukocytosis
-WBC decreased from 16.7 to 11.6 today
-CBC follow up
#Pleural Effusion / Ascites
-Consult IR for thoracentesis
-Bumex on hold due to hypotension
#Essential Hypertension
-Hold atenolol as BP is running on the low side
#DM
HBA1C 6.7
SSI
#GERD
-Continue Protonix
#Chronic Anemia
-Hgb stable
#Left Fibula Fracture
-PT/OT
-Allowed to weight bearing as tolerated
#Incidental adrenal mass
-1.7 cm left adrenal mass (possibly an adenoma)
-Follow up with PCP
#Stage II decubitus ulcer
-Wound care was consulted
-The patient had stages II decubitus ulcer on her sacral area at admission
DVT proph: Lovenox
Peripheral Vascular US showed acute occlusive deep venous thrombosis in the left peroneal vein. Starting on Eliquis will be discussed with the family is planning to start Eliquis once out pt pharmacy info obtained.
Code STatus: DNR per [place] paperwork
Anticipated Discharge: 24 - 48 hours
Subjective/Interval History
-
Date of Service: November 02,
The patient was seen in her bed reporting feeling same. She reports pain in her left leg.
Objective Data
-
Vital Signs:
Vital Signs
Temp Pulse Resp BP Pulse Ox
97.8 F 72 30 140/72 94
11/03/23 03:57 11/03/23 06:00 11/03/23 06:00 11/03/23 06:00 11/03/23 06:00
I&O
11/01/23 11/02/23 11/03/23
06:59 06:59 06:59
Intake Total 140 / 140
Balance 140 / 140
Review of Systems
-
EENT: Reports No Symptoms Reported
Respiratory: Reports No Symptoms and Other
Abdomen/GI: Reports Abdominal Pain (not a severe pain. feels some uncomforted to touch. not rebound or guarding )
Genitourinary: Reports No Symptoms and Other
Musculoskeletal: Reports Edema (left lower extremity )
Skin: Reports No Symptoms
Physical Exam
-
General: Comfortable
HEENT: Normocephalic and Atraumatic
Respiratory: Other (Decreased Breath Sounds (Right lower lung meza))
Cardiac: Regular Rhythm and S1/S2
GI: Other (not a severe pain on id abdominal area. feels some uncomforted to touch. not rebound or guarding. the abdomen seems distended)
Musculoskeletal: Edema, Left Lower Extrem
Skin: Warm and Dry
Neuro: Awake, Alert, Oriented and Other ((Not oriented to time ( to year) ))
[2023-11-03 08:20] LABS: % Basophils 0.3 % (0-2); % Eosinophils 0.3 % (0-6); % Immature Granulocytes 0.5 % (0-0.5); % Lymphocytes 22.2 % (20.5-51.1); % Monocytes 7.5 % (1.7-9.3); % Neutrophils 69.2 % (42.2-75.2); Absolute Immature Granulocytes 0.1 10^3/uL (0-0.05); Absolute Lymphocytes 2.6 10^3/uL (1.2-3.4); Absolute Monocytes 0.9 10^3/uL (0.1-0.6); Absolute Neutrophils 8.1 10^3/uL (1.4-6.5); Hematocrit 32.2 % (37.0-47.0); Hemoglobin 10.3 g/dL (12.0-16.0); Mean Corpuscular Hgb 27.5 pg (27.0-31.0); Mean Corpuscular Volume 86.1 fL (81.0-99.0); Mean Platelet Volume 9.8 fL (7.4-10.4); Nucleated Red Blood Cells % 0 %; Platelet Count 191 10^3/uL (130-400); Red Blood Cell Count 3.74 10^6/uL (4.20-5.40); Red Cell Dist. Width 15.9 % (11.5-14.5); White Blood Cell Count 11.6 10^3/uL (4.8-10.8)
[2023-11-03 08:42] LABS: ALT (SGPT) 14 U/L (0-35); AST (SGOT) 30 U/L (14-36); Albumin 2.4 g/dl (3.5-5.0); Alkaline Phosphatase 185 U/L (38-126); Blood Urea Nitrogen 37 mg/dl (7-17); Calcium 8.3 mg/dl (8.4-10.2); Carbon Dioxide 26 mmol/L (22-30); Chloride 109 mmol/L (98-107); Estimated Creatinine Clearance 36 ml/min; Glucose 135 mg/dl (70-99); Sodium 141 mmol/L (135-145); Total Bilirubin 0.5 mg/dl (0.2-1.3); Total Protein 6.2 g/dl (6.3-8.2); eGFR > 60.00
[2023-11-03] MEDS: DESENEX/MITRAZOL/ZEASORB 1 APPLIC TOPICAL ×2 (09:20→20:10)
[2023-11-03] MEDS: PROTONIX 40 MG PO (09:21)
[2023-11-03] MEDS: HYDROPHOR 1 APPLIC TOPICAL (09:21)
[2023-11-03] MEDS: ELIQUIS 10 MG PO ×2 (09:21→20:11)
--- NOTE | 2023-11-03 13:23 | CM ---
Addendum entered by Bernadette Burden 11/03/23 15:15:
Patient daughter in law Jacquie provided patient [facility] RX ID# [id number] BIN [id number]. Patient uses [facility] for medications. Per [facility] CM called and the cost was 47$ per month. Patient daughter is interested in patient returning to
[facility] when medically appropriate.
Original Note:
Patient seen at bedside with physician, resident and patient in ICU. Patient stated that she feels cold. CM will call to patient daughter in law about pharmacy plan, plan is to return to SNF when medically appropriate. CM will continue to
follow for discharge planning needs.
Plan; return to SNF; pending bed availability and auth.
--- NOTE | 2023-11-03 14:19 | SUR.OPER ---
Obstruction series completed. [facility]
[2023-11-03] MEDS: TYLENOL 650 MG PO (14:25)
[2023-11-04] MEDS: STERILE WATER FOR INJECTION 10 ML IV ×2 (05:20→17:17)
[2023-11-04] MEDS: MAXIPIME 2000 MG IV ×2 (05:20→17:10)
[2023-11-04 06:00] VITALS: BMI 23.8
--- NOTE | 2023-11-04 06:29 | W.PN.HOSP.TC ---
Today's Communication/Plan
-
Her blood pressure started to increase
-bumetanide 0.5 mg PO and atenolol 50 mg are planning to restart
Assessment / Plan
Assessment / Plan
Assessment and Plan
Impression: Patient is a 88 year old female who presented to ER on 11/01/23 with hypoxia and shortness of breath. Upon arrival to the emergency department she was noted to be hypoxic and febrile.Upon arrival to the emergency department she was
noted to be hypoxic and febrile. Chest CT of the patient showed a large right pleural effusion. IR did thoracentesis on 11/02/23 and her Chest X-ray showed Improved aeration following right thoracentesis. The patient had her left leg in brace and
it was swollen. Peripheral Vascular US showed acute occlusive deep venous thrombosis in the left peroneal vein. The results were discussed with the family yesterday and it is planning to start Eliquis once out pt pharmacy info obtained. The patient
had a X ray Obstruct Series for her abdominal discomfort. X ray revealed no acute abnormality. The patient was consulted to GI today for abdominal pain with additional concern of rectal neoplasm.
Assessment:
#Acute Hypoxic Respiratory Failure
-Secondary to transudative Right Pleural Effusion
-IR did thoracentesis:Chest X-ray showed:Improved aeration following right thoracentesis
-Weaned of supplemental oxygen on 11/01. Today her O2 level on room air 94
-Pro-BNP was ordered on 11/03 to distinguish cardiac etiology for pleural effusion
-Monitor Is&Os and Daily Weights
#Sepsis secondary to possible intra-abdominal infection
-Abd/Pelvis CT:Diagnostic possibilities are (1) severe portal hypertensive colopathy or (2) a severe infectious colitis.Severe diverticulosis in the descending and sigmoid colon.
-Blood cultures:Gram Negative Bacilli, positive culture shows E coli
-Urine culture: Negative
-Pleural culture: Negative
-Continue cefepime
-Stop vancomycin and metronidazole
-Another blood culture was ordered:pending
#Abdominal Pain/tenderness
-Abd CT 10/31: Mild cirrhosis, Small to moderate volume of ascites, Mild hepatic cirrhosis.
-X ray: Obstruct Series W/PA Chest on 11/02:No evidence of acute abdominal pathology.
-GI was consulted on 11/03
-Start tramadol 50 mg PO TID ( home med)
#Leukocytosis
-Resolved WBC: 7.7 Dropped form 16.7
-CBC follow up
#Pleural Effusion
-IR did thoracentesis on 11/01
-Restart Bumex
#Essential Hypertension
- BP was running on the low side at admission
-Since yesterday BP started to increase
-Bumetanide o.5 mg was started on 11/03
-Can be considered restart atenolol 50 mg (home med)
#DM
HBA1C 6.7
SSI
#GERD
-Continue Protonix
#Chronic Anemia
-Hgb stable
#Left Fibula Fracture
-PT/OT
-Allowed to weight bearing as tolerated
-immobilization due acute DVT
#Incidental adrenal mass
-1.7 cm left adrenal mass (possibly an adenoma)
-Follow up with PCP
#Stage II decubitus ulcer
-Wound care was consulted
-The patient had stages II decubitus ulcer on her sacral area at admission
DVT proph:
Peripheral Vascular US showed acute occlusive deep venous thrombosis in the left peroneal vein. Starting on Eliquis will be discussed with the family is planning to start Eliquis once out pt pharmacy info obtained.
-Eliquis
Code Status: DNR per [place] paperwork
Anticipated Discharge: 24 - 48 hours
Subjective/Interval History
-
Date of Service: November 04, 2023
The patient was seen in her bed complaining from left leg pain and abdominal tenderness. She reported having some difficulty with breathing but not worse than yesterday.
Objective Data
-
Labs:
Laboratory Results
11/04/23
06:00
WBC Pending
Hgb Pending
Hct Pending
Plt Count Pending
Sodium Pending
Potassium Pending
Chloride Pending
Carbon Dioxide Pending
BUN Pending
Creatinine Pending
Glucose Pending
Calcium Pending
Total Bilirubin Pending
AST Pending
ALT Pending
Alkaline Phosphatase Pending
Vital Signs:
Vital Signs
Temp Pulse Resp BP Pulse Ox
97.6 F 81 18 155/80 94
11/03/23 23:36 11/03/23 23:36 11/03/23 23:36 11/03/23 23:36 11/03/23 23:36
I&O
11/02/23 11/03/23 11/04/23
06:59 06:59 06:59
Intake Total 140 / 140 360 / 360
Output Total 200 / 200
Balance 140 / 140 160 / 160
Review of Systems
-
EENT: Reports No Symptoms Reported
Respiratory: Reports No Symptoms and Other (See HPI )
Cardiac: Reports No Symptoms
Abdomen/GI: Reports Abdominal Pain (Feels distended and uncomfortable)
Genitourinary: Reports No Symptoms
Musculoskeletal: Reports Other (Left leg pain )
Neuro: Reports No Symptoms
Physical Exam
-
General: Comfortable
HEENT: Normocephalic and Atraumatic
Respiratory: Other (Decreased Breath Sounds (Right lower lung meza))
Cardiac: Regular Rhythm and S1/S2
GI: Distended
Musculoskeletal: Edema, Left Lower Extrem
Neuro: Awake, Alert and Oriented (Not oriented to time ( to year))
[2023-11-04 07:00] VITALS: BP 137/67
[2023-11-04 07:52] LABS: % Basophils 0.4 % (0-2); % Eosinophils 2.1 % (0-6); % Immature Granulocytes 0.4 % (0-0.5); % Lymphocytes 21.2 % (20.5-51.1); % Monocytes 7.8 % (1.7-9.3); % Neutrophils 68.1 % (42.2-75.2); Absolute Eosinophils 0.2 10^3/uL (0-0.7); Absolute Lymphocytes 1.6 10^3/uL (1.2-3.4); Absolute Monocytes 0.6 10^3/uL (0.1-0.6); Absolute Neutrophils 5.3 10^3/uL (1.4-6.5); Hematocrit 32.1 % (37.0-47.0); Hemoglobin 10.5 g/dL (12.0-16.0); Mean Corp Hgb Conc. 32.7 g/dL (33.0-37.0); Mean Corpuscular Hgb 28.5 pg (27.0-31.0); Nucleated Red Blood Cells % 0 %; Platelet Count 182 10^3/uL (130-400); Red Blood Cell Count 3.69 10^6/uL (4.20-5.40); Red Cell Dist. Width 15.9 % (11.5-14.5); White Blood Cell Count 7.7 10^3/uL (4.8-10.8)
[2023-11-04 08:37] LABS: ALT (SGPT) 14 U/L (0-35); AST (SGOT) 28 U/L (14-36); Albumin 2.5 g/dl (3.5-5.0); Alkaline Phosphatase 197 U/L (38-126); Blood Urea Nitrogen 29 mg/dl (7-17); Calcium 8.4 mg/dl (8.4-10.2); Carbon Dioxide 20 mmol/L (22-30); Chloride 111 mmol/L (98-107); Estimated Creatinine Clearance 41 ml/min; Glucose 133 mg/dl (70-99); Magnesium 2.1 mg/dl (1.6-2.3); Potassium 4.1 mmol/L (3.5-5.1); Sodium 144 mmol/L (135-145); Total Bilirubin 0.6 mg/dl (0.2-1.3); Total Protein 6.3 g/dl (6.3-8.2); eGFR > 60.00
[2023-11-04] MEDS: HYDROPHOR TOPICAL (08:40)
[2023-11-04] MEDS: PROTONIX 40 MG PO (08:44)
[2023-11-04] MEDS: DESENEX/MITRAZOL/ZEASORB 1 APPLIC TOPICAL ×2 (08:44→20:30)
[2023-11-04] MEDS: ELIQUIS 10 MG PO ×2 (08:45→20:30)
[2023-11-04] MEDS: TYLENOL 650 MG PO (08:48)
--- NOTE | 2023-11-04 11:48 | CM ---
Patient seen at bedside. Update given regarding eliquis cost of 47$ per month. CM will continue to follow for discharge planning needs.
Plan; return to SNF; [facility] pending other referrals from family
--- NOTE | 2023-11-04 11:57 | CON.GI ---
Addendum entered and electronically signed by CHUCKY Bishop 11/04/23 16:10:
add to below per Dr. Oliva noted Ecoli bacteremia -- reviewed again with family to consider para next to rule out SBP and eval for SAAG to eval for liver vs cardiac related ascites and rule out SBP.
Addendum entered and electronically signed by Radha Oliva MD 11/04/23 15:28:
I saw and examined the patient.
The MEDICAL ARTIST's note was reviewed and I agree with the note.
Comment: This is a 88-year-old female with past medical history as listed below who is living at [facility] who also had a recent admission in September for pleural effusion and had thoracentesis with approximately 1.1 L removed
transudative at that time she was also having altered mental status and was worked up and was thought to have undiagnosed dementia. She now presents again from [facility] with shortness of breath and was found to have large right-sided pleural
effusion and had thoracentesis performed with about 2 L removed again transudative. She also has sepsis now with bacteremia with E. coli and has been started on antibiotics(cefepime). On CT chest abdomen and pelvis though she does not have other
incidental findings including ascites, cirrhosis and possible colonic thickening and rectal thickening and adrenal adenoma and sacral fractures, DDD and bladder thickening. She was also diagnosed with acute DVT of left peroneal vein and started on
Eliquis. History is limited patient answers some questions appropriately but is also forgetful. No known history of cirrhosis prior to this and no history of alcohol abuse.
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 She is status post thoracenteses with 2 L drained 11/01 and 1.1 L drained
10/03. May need repeated thoracenteses if she has reaccumulation and may need to consider pleurodesis versus TIPS if having recurrent frequent reaccumulation. chest tube is relatively contraindicated with hepatic hydrothorax. Possible etiology of
cirrhosis may be from [facility]. May need echocardiogram and possible cardiology evaluation if family wants to proceed with aggressive workup. Will need diuretic she is currently on Bumex may need to consider switching to Lasix 40 mg and Aldactone 100
mg. Ideally will also need paracenteses to prevent reaccumulation but patient had refused but if changes then will schedule for paracenteses and also calculate SAAG. Given her age, comorbidities and possible underlying dementia may need to also
consider palliative care. Will also get an ammonia level to rule out hepatic encephalopathy.
2. E. coli bacteremia currently on antibiotics no obvious etiology urine cultures are negative repeat blood cultures are negative. Status post cholecystectomy and LFTs are normal doubt cholangitis unclear if she had prior ERCP there is evidence of
small amount of pneumobilia in the liver and common hepatic duct.,no CBD dilatation. possible bacterial translocation from gut although there was questionable colitis versus colopathy noted on CT no symptoms of colitis currently she has no diarrhea
or rectal bleeding, she had 1 soft bowel movement today which was brown and soft bowel movement yesterday. Also questionable rectal mass on CT which was not palpated on rectal exam performed by Usha Shine NP. Family wants to hold off on
endoscopic workup and treat conservatively.
3. Acute peroneal DVT has been started on Eliquis currently has no overt bleeding continue to monitor hemoglobin
Original Note:
Consultation
-
Date/Time Consultation Requested: 11/04/23 1150
Date/Time Consultation Performed: 11/04/23 1155
Requesting Provider: Orquidea Lenz MD
Performing Provider: CHUCKY Resendiz
Reason for Consultation: abnormal imaging - cirrhosis/recal thickening
Medical History
Chief Complaint / HPI
History of Present Illness:
Pt is a 88yo with hx DM type 2, HTN, hyperlipidemia, GERD, chronic back pain, OTONIEL, pleural effusion with admission in September with confusion and ERIC with concern for underlying dementia. She now returns with shortness of breath and hypoxemia with
noted large right pleural effusion increased from September s/p thoracentesis completed for 2 liters. Asked to see an CT also completed with concern for cirrhosis, ascites, AC thickening colopathy vs infectious colitis, rectal thickening possible
adrenal adenoma, bladder thickening, b/l sacral fractures and DDD. Asked to see for noted findings.
In reviewing with patient she is noted with no hx cirrhosis in past. Pt admits to GERD but denies odynophagia, dysphagia, nausea, vomiting, abdominal pain, diarrhea, constipation or rectal bleeding. No hx EGD but admits to prior colonoscopy
but could not recall details.
Past Medical History
Past Medical History: GERD, HTN, Hypercholesterolemia, NIDDM and Other (diabetes insipidus, pleural effusion, chronic pain, ascites, OTONIEL, spinal stenosis, cognitive impairment, DDD )
Past Surgical History: Cholecystectomy
Social History
Tobacco: Former Smoker
Alcohol: Former (social in past )
Drug: None
Living: [facility]
Employment: Retired
Family History
Family History: Other (no family hx liver problems or known colon CA)
Allergies / Home Medications
Allergy/AdvReac Type Severity Reaction Status Date / Time
aspirin Allergy Unknown Verified 10/07/23 20:22
iodine Allergy Unknown Verified 10/07/23 20:22
Penicillins Allergy Unknown Verified 10/07/23 20:22
�Medication �Instructions �Recorded
acetaminophen 325 mg tablet 650 mg PO Q6HPRN PRN mild 09/29/23
(Tylenol) pain/temp >100
atenolol 50 mg tablet 50 mg PO DAILY Blood Pressure 09/29/23
docusate sodium 100 mg capsule 100 mg PO Q48H constipation 09/29/23
(Colace)
ferrous sulfate 325 mg (65 mg 325 mg PO DAILY Supplement 09/29/23
iron) tablet
gabapentin 100 mg capsule 100 mg PO BID pain 09/29/23
lidocaine 4 % topical patch 1 patch topical DAILY lower back 09/29/23
melatonin 3 mg tablet 3 mg PO HS sleep 09/29/23
omeprazole 20 mg tablet,delayed 20 mg PO DAILY Gastrointestinal 09/29/23
release Issue
sennosides 8.6 mg tablet (senna) 17.2 mg PO BID constipation 09/29/23
bumetanide 0.5 mg tablet 0.5 mg PO DAILY pleural effusion 1 10/02/23
month #30 tabs
bisacodyl 10 mg rectal suppository 10 mg DC DAILYPRN PRN 11/01/23
(Dulcolax (bisacodyl)) constipation, mom ineffective
calcium 500 mg (as 1 tab PO BID Supplement 11/01/23
carbonate)-vitamin D3 3.125 mcg
(125 unit) tablet
cyanocobalamin (vitamin B-12) 500 1,000 mcg PO DAILY Supplement 11/01/23
mcg tablet
magnesium hydroxide 400 mg/5 mL 30 ml PO [id number] PRN day 3 no bm 11/01/23
oral suspension (Milk of Magnesia)
sodium phosphates 19 gram-7 118 ml DC DAILYPRN PRN 11/01/23
gram/118 mL enema (Fleet Enema) constipation, dulcolax ineffective
tramadol 50 mg tablet 50 mg PO Q8HPRN PRN moderate pain 11/01/23
zinc oxide 13 % topical cream 1 applic topical Q8H 11/01/23
sacrum/buttocks
Review of Systems
-
History Source: Patient and Family
Constitutional: Reports No Symptoms
EENT: Reports No Symptoms
Respiratory: Reports No Symptoms and Trouble Breathing (on admission)
Abdomen/GI: Reports No Symptoms
: Reports No Symptoms
Musculoskeletal: Reports No Symptoms
Skin: Reports No Symptoms
Neurological: Reports Weakness
Endocrine: Reports No Symptoms
Hematologic/Lymphatic: Reports No Symptoms
Vital Signs
Temp Pulse Resp BP Pulse Ox
98 F 87 24 137/67 94
11/04/23 07:00 11/04/23 07:00 11/04/23 07:00 11/04/23 07:00 11/04/23 07:00
Physical Exam
Exam
General: Other (elderly female in no acute distress )
HEENT: Normocephalic and Anicteric
Respiratory: Clear
Cardiac: Regular Rhythm
GI: Soft, Non Tender and Distended (minimal )
Rectal: Brown (heme + no mass or leison noted )
Musculoskeletal: No Clubbing and No Cyanosis
Skin: Warm and Dry
Neuro: Awake, Alert and AO x 3
Psych: Calm
Results
WBC 7.7 10^3/uL (4.8-10.8) 11/04/23 07:32
Hgb 10.5 g/dL (12.0-16.0) L 11/04/23 07:32
Hct 32.1 % (37.0-47.0) L 11/04/23 07:32
MCV 87.0 fL (81.0-99.0) 11/04/23 07:32
Plt Count 182 10^3/uL (130-400) 11/04/23 07:32
Absolute Neuts (auto) 5.3 10^3/uL (1.4-6.5) 11/04/23 07:32
Sodium 144 mmol/L (135-145) 11/04/23 07:32
Potassium 4.1 mmol/L (3.5-5.1) 11/04/23 07:32
Chloride 111 mmol/L (98-107) H 11/04/23 07:32
Carbon Dioxide 20 mmol/L (22-30) L 11/04/23 07:32
BUN 29 mg/dl (7-17) H 11/04/23 07:32
Creatinine 0.8 mg/dL (0.6-1.0) 11/04/23 07:32
Calcium 8.4 mg/dl (8.4-10.2) 11/04/23 07:32
Total Bilirubin 0.6 mg/dl (0.2-1.3) 11/04/23 07:32
AST 28 U/L (14-36) 11/04/23 07:32
ALT 14 U/L (0-35) 11/04/23 07:32
Alkaline Phosphatase 197 U/L (38-126) H 11/04/23 07:32
Diagnostic Image Results:
11/03/23 CR Obstruct Series W/pa Chest
Moderate right pleural effusion with associated atelectasis at the right lung base and lower right upper lobe
No evidence of acute abdominal pathology.
11/02/23 US Periph Venous LOWER Ext LT
ACUTE OCCLUSIVE DEEP VENOUS THROMBOSIS in the LEFT PERONEAL VEIN.
11/01/23 CT Chest/abd/pel W Iv Cont
CHEST:
1. LARGE RIGHT PLEURAL EFFUSION causing mild right to left mediastinal shift and complete compressive atelectasis of the right lower and middle lobes.
2. Small left pleural effusion.
3. Mild cardiomegaly.
ABDOMEN and PELVIS:
1. Small to moderate volume of ascites.
2. Mild hepatic cirrhosis.
3. Severe submucosal edema and wall thickening throughout the ascending colon. Diagnostic possibilities are (1) severe portal hypertensive colopathy or (2) a severe infectious colitis.
4. Severe circumferential wall thickening in the rectum. Diagnostic possibilities are (1) an acute infectious proctocolitis or (2) rectal adenocarcinoma.
5. Severe diverticulosis in the descending and sigmoid colon.
6. Previous cholecystectomy.
7. 1.7 cm left adrenal mass (possibly an adenoma).
8. Moderate diffuse urinary bladder wall thickening (either underdistention or cystitis).
9. Acute bilateral sacral insufficiency fractures.
10. 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
11. Moderate anasarca.
Prior GI Procedures:
EGD: pt denies
Colonoscopy: ? in past
Assessment / Plan
-
Pt is a 88yo with hx DM type 2, HTN, hyperlipidemia, GERD, chronic back pain, OTONIEL, pleural effusion with admission in September with confusion and ERIC with concern for underlying dementia. She now returns with shortness of breath and hypoxemia with
noted large right pleural effusion increased from September s/p thoracentesis completed for 2 liters. Asked to see an CT also completed with concern for cirrhosis, ascites, AC thickening colopathy vs infectious colitis, rectal thickening possible
adrenal adenoma, bladder thickening, b/l sacral fractures and DDD. Asked to see for noted findings.
-cirrhosis on CT with ascites
-CT with ascending colon edema and wall thickening portal colopathy vs infectious colitis
-rectal thickening with ? mass not noted on exam
-large right pleural effusion s/p thoracentesis 10/03- 115, 11/02 1999
-acute occlusive deep venous thrombosis and left peroneal vein
-recent admit with ERIC and change in mental status
-hx LE edema new several months ago
-hx chronic OTONIEL
-hypoalbuminemia
other medical problems:
-DM type 2
-HTN
-hx diabetes insipidus
-hyperlipidemia
-GERD
-chronic back pain/hx spinal fracture
-neuropathy
-diverticulosis
-ricardo
PLAN:
In review of pt and family concern for underlying cirrhosis with ascites and with effusion ? 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
she also has hypoalbuminemia, recent ERIC and mental status change concerning for underlying HE
I also discussed with family other finding on CT with colon thickening, rectal thickening ( no mass noted exam)-- any role for colonoscopy and possible EGD for variceal screening
family will review with patient but would consider holding and more conservative measure
I reviewed with patient for paracentesis with ascites to calculate SAAG but pt currently denies to proceed
t/c adding diuretics
will add hepatitis panel, hold INR as will not be accurate with Eliquis and difficulty to calculate MELD
I reviewed with Dr. Lenz any other intervention for recurrent effusion ? pleurax etc
pt remain on new Anticoagulation monitor closely with OTONIEL
I requested records from PCP in [place] to see if any other know hx cirrhosis in past or fatty liver
will review with Dr. Mekapati and further discuss with family
updated Dr. Lenz
-
-
Thank you for consultation and allowing me to participate in the patient's care. Please call the system administration advisor GI physician during the after hours with any questions or concerns.
[2023-11-04 14:21] VITALS: BP 120/70; PULSE 87; O2SAT 93
[2023-11-04 14:23] VITALS: BP 136/85; PULSE 85; O2SAT 94
--- NOTE | 2023-11-04 14:48 | W.PN.UPDATE ---
Update Note
Progress Note Update
I saw and evaluated the patient. I reviewed the resident�s note and agree with findings and plan as documented in the resident�s note.
Acute Hypoxic Respiratory failure
Recurrent right sided pleural effusion - presuming hepatic hydrothorax
-s/p thoracentesis of 2L transudative fluid
-on 10/03 had 1.1 L transudative fluid out
-unfortunately likely to reaccumulate
Sepsis
E-coli bacteremia
-possible from gut translocation
-CT a/p finding as above
-colitis finding possible portal colopathy related.
-currently on cefepime
Rectal wall thickening
-possible due to portal HTN related as well vs cancer
-GI evaluated and discussed with family, not interested in endoscopy
Essential Hypertension
-bumex/atenolol resume back
Left Fibula Fracture with immobilizer and lower ext edema --US with acute DVT--start eliquis and ask CM to [facility]--Continue Left Knee Immobilization--PT/OT
GERD-Continue Protonix
Anemia of chronic disease-Hgb stable
Incidental adrenal mass--likely benign--1.7 cm left adrenal mass (possibly an adenoma)--Follow up with PCP
Stage II decubitus ulcer (POA) likely pressure injury--Wound care was consulted
DVT prophylaxis: Lovenox
Code Status: DNR as per [place] paperwork
Discussed with GI
[2023-11-04 15:00] VITALS: BP 139/65
[2023-11-04] MEDS: BUMEX 0.5 MG PO (15:11)
[2023-11-04] MEDS: ULTRAM 50 MG PO ×2 (15:11→23:03)
[2023-11-04 23:41] VITALS: BP 158/82
[2023-11-05 05:19] VITALS: BMI 23.3
[2023-11-05] MEDS: MAXIPIME 2000 MG IV ×2 (05:47→17:09)
[2023-11-05] MEDS: STERILE WATER FOR INJECTION 10 ML IV ×2 (05:47→17:09)
[2023-11-05 07:40] VITALS: BP 125/54
[2023-11-05 07:52] LABS: % Basophils 0.5 % (0-2); % Eosinophils 3.7 % (0-6); % Immature Granulocytes 0.6 % (0-0.5); % Monocytes 9.2 % (1.7-9.3); Absolute Eosinophils 0.2 10^3/uL (0-0.7); Absolute Lymphocytes 1.6 10^3/uL (1.2-3.4); Absolute Monocytes 0.6 10^3/uL (0.1-0.6); Absolute Neutrophils 3.8 10^3/uL (1.4-6.5); Hematocrit 33.1 % (37.0-47.0); Hemoglobin 10.8 g/dL (12.0-16.0); Mean Corp Hgb Conc. 32.6 g/dL (33.0-37.0); Mean Corpuscular Hgb 28.6 pg (27.0-31.0); Mean Corpuscular Volume 87.8 fL (81.0-99.0); Mean Platelet Volume 9.5 fL (7.4-10.4); Nucleated Red Blood Cells % 0 %; Platelet Count 200 10^3/uL (130-400); Red Blood Cell Count 3.77 10^6/uL (4.20-5.40); Red Cell Dist. Width 15.9 % (11.5-14.5); White Blood Cell Count 6.3 10^3/uL (4.8-10.8)
[2023-11-05] MEDS: BUMEX 0.5 MG PO (07:52)
[2023-11-05] MEDS: ULTRAM 50 MG PO ×3 (07:53→23:19)
[2023-11-05] MEDS: PROTONIX 40 MG PO (07:53)
[2023-11-05] MEDS: ELIQUIS 10 MG PO ×2 (07:53→19:59)
[2023-11-05] MEDS: TENORMIN 50 MG PO (07:53)
[2023-11-05] MEDS: DESENEX/MITRAZOL/ZEASORB 1 APPLIC TOPICAL ×2 (07:54→19:59)
[2023-11-05] MEDS: HYDROPHOR 1 APPLIC TOPICAL (07:54)
[2023-11-05 08:14] LABS: NT-proBNP 2330 pg/ml
[2023-11-05 08:15] LABS: ALT (SGPT) 15 U/L (0-35); AST (SGOT) 31 U/L (14-36); Albumin 2.5 g/dl (3.5-5.0); Alkaline Phosphatase 174 U/L (38-126); Blood Urea Nitrogen 28 mg/dl (7-17); Calcium 8.5 mg/dl (8.4-10.2); Carbon Dioxide 25 mmol/L (22-30); Chloride 110 mmol/L (98-107); Estimated Creatinine Clearance 41 ml/min; Glucose 123 mg/dl (70-99); Potassium 4.5 mmol/L (3.5-5.1); Sodium 141 mmol/L (135-145); Total Bilirubin 0.7 mg/dl (0.2-1.3); Total Protein 6.3 g/dl (6.3-8.2); eGFR > 60.00
[2023-11-05 09:01] LABS: Ammonia < 9 umol/L (9-30)
--- NOTE | 2023-11-05 10:11 | W.PN.GI.CBS2 ---
Today's Communication / Plan
-
US with Dopplers
adv diet to soft diet her dentures were misplaced in hospital per family
paracentesis with IR
Assessment / Plan
-
Pt is a 88yo with hx DM type 2, HTN, hyperlipidemia, GERD, chronic back pain, OTONIEL, pleural effusion with admission in September with confusion and ERIC with concern for underlying dementia. She now returns with shortness of breath and hypoxemia with
noted large right pleural effusion increased from September s/p thoracentesis completed for 2 liters. Asked to see an CT also completed with concern for cirrhosis, ascites, AC thickening colopathy vs infectious colitis, rectal thickening possible
adrenal adenoma, bladder thickening, b/l sacral fractures and DDD. Asked to see for noted findings.
-cirrhosis on CT with ascites
-CT with ascending colon edema and wall thickening portal colopathy vs infectious colitis
-rectal thickening with ? mass not noted on exam
-large right pleural effusion s/p thoracentesis 10/03- 1149, 11/02 1999
-acute occlusive deep venous thrombosis and left peroneal vein
-recent admit with ERIC and change in mental status
-hx LE edema new several months ago
-hx chronic OTONIEL
-hypoalbuminemia
other medical problems:
-DM type 2
-HTN
-hx diabetes insipidus
-hyperlipidemia
-GERD
-chronic back pain/hx spinal fracture
-neuropathy
-diverticulosis
-ricardo
PLAN:
1 recurrent right pleural effusion transudative etiology could be possible underlying cardiogenic versus related to cirrhosis and hepatic hydrothorax. She is status post thoracenteses with 2 L drained 11/01 and 1.1 L drained 10/03. May need
repeated thoracenteses if she has reaccumulation and may need to consider pleurodesis versus TIPS if having recurrent frequent reaccumulation. chest tube is relatively contraindicated with hepatic hydrothorax. Possible etiology of cirrhosis may be
from [facility]. May need echocardiogram and possible cardiology evaluation if family wants to proceed with aggressive workup. Will need diuretic she is currently on Bumex may need to consider switching to Lasix 40 mg and Aldactone 100 mg. Will
schedule for paracenteses patient agreeable and family also agreeable will prevent reaccumulation if hepatic hydrothorax of the pleural effusion. Will also rule out SBP given bacteremia with E. coli. ammonia level is normal. Given her age,
comorbidities and possible underlying dementia may need to also consider palliative care if worsens. Will also get US with dopplers.
2. E. coli bacteremia currently on antibiotics no obvious etiology urine cultures are negative repeat blood cultures are negative. Status post cholecystectomy and LFTs are normal doubt cholangitis unclear if she had prior ERCP there is evidence of
small amount of pneumobilia in the liver and common hepatic duct.,no CBD dilatation. possible bacterial translocation from gut although there was questionable colitis versus colopathy noted on CT no symptoms of colitis currently she has no diarrhea
or rectal bleeding also r/o SB., BM normal no diarrhea/bleeding. Also questionable rectal mass on CT which was not palpated on rectal exam performed by Usha Shine REFRIGERATION INSTALLER. Family wants to hold off on endoscopic workup and treat conservatively.
3. Acute peroneal DVT has been started on Eliquis currently has no overt bleeding continue to monitor hemoglobin
Subjective
Subjective
Date of Service: November 05, 2023
Patient more awake and feels better denies chest pain or abdominal pain shortness of breath is improved, afebrile. son and [id number] are at bedside
Objective
Data Reviewed
Laboratory Data:
Laboratory Results
11/05/23 07:22
11/05/23 07:22
Laboratory Results
Magnesium 2.1 mg/dl (1.6-2.3) 11/04/23 07:32
Total Bilirubin 0.7 mg/dl (0.2-1.3) 11/05/23 07:22
AST 31 U/L (14-36) 11/05/23 07:22
ALT 15 U/L (0-35) 11/05/23 07:22
Alkaline Phosphatase 174 U/L (38-126) H 11/05/23 07:22
Vital Signs and I&O:
Vital Signs
Temp Pulse Resp BP Pulse Ox
97.2 F 87 22 158/82 95
11/05/23 07:40 11/05/23 07:53 11/05/23 07:40 11/05/23 07:53 11/05/23 07:40
I&O
11/04/23 11/05/23 11/06/23
06:59 06:59 06:59
Intake Total 360 / 360 240 / 240
Output Total 200 / 200
Balance 160 / 160 240 / 240
Physical Exam
Physical Exam
Cardiology: Normal Sinus Rhythm
Pulmonary: Clear
GI: Soft, Distended (mildly distended), Non Tender and Normal Bowel Sounds
[2023-11-05 15:13] VITALS: BP 134/59
--- NOTE | 2023-11-05 15:57 | W.PN.HOSP.TC ---
Today's Communication/Plan
-
continue abx
f/u US doppler report
para by IRAD
Assessment / Plan
Assessment / Plan
CT C/A/P
CHEST:
1. LARGE RIGHT PLEURAL EFFUSION causing mild right to left mediastinal shift and complete compressive atelectasis of the right lower and middle lobes.
2. Small left pleural effusion.
3. Mild cardiomegaly.
ABDOMEN and PELVIS:
1. Small to moderate volume of ascites.
2. Mild hepatic cirrhosis.
3. Severe submucosal edema and wall thickening throughout the ascending colon. Diagnostic possibilities are (1) severe portal hypertensive colopathy or (2) a severe infectious colitis.
4. Severe circumferential wall thickening in the rectum. Diagnostic possibilities are (1) an acute infectious proctocolitis or (2) rectal adenocarcinoma.
5. Severe diverticulosis in the descending and sigmoid colon.
6. Previous cholecystectomy.
7. 1.7 cm left adrenal mass (possibly an adenoma).
8. Moderate diffuse urinary bladder wall thickening (either underdistention or cystitis).
9. Acute bilateral sacral insufficiency fractures.
10. 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
11. Moderate anasarca.

Acute Hypoxic Respiratory failure - improved
Recurrent right sided pleural effusion - presuming hepatic hydrothorax
-s/p thoracentesis of 2L transudative fluid
-on 10/03 had 1.1 L transudative fluid out
-unfortunately likely to reaccumulate
Sepsis
E-coli bacteremia
-possible from gut translocation
-CT a/p finding as above
-colitis finding possible portal colopathy related.
-currently on cefepime, continue, broaden the coverage for anaerobics if clinically worsened,
Cirrhosis - unknown etio
Ascites
-Abd US doppler ordered
-IRAD consulted for paracentesis
-If have any episode of metabolic encephalopathy, will need lactulose dosing
Rectal wall thickening
-possible due to portal HTN related as well vs cancer
-GI evaluated and discussed with family, not interested in endoscopy
Essential Hypertension
-bumex/atenolol resume back
Left Fibula Fracture with immobilizer and lower ext edema
--US with acute DVT
-on eliquis thearpy
-Continue Left Knee Immobilization--PT/OT
GERD
-Continue Protonix
Anemia of chronic disease
-Hgb stable
Incidental adrenal mass-
-likely benign
-1.7 cm left adrenal mass (possibly an adenoma)
-Follow up with PCP
Stage II decubitus ulcer (POA) likely pressure injury
-Wound care was consulted
Type II DM
Essential HTN
h/o Diabetes insipidus
GERD
DVT prophylaxis: Lovenox
Code Status: DNR as per [place] paperwork
Anticipated Discharge: 24 - 48 hours
Subjective/Interval History
-
Date of Service: November 05, 2023
no complains overnight
resting comfortably in bed
Objective Data
-
Labs:
Laboratory Results
11/05/23
07:22
WBC 6.3
Hgb 10.8 L
Hct 33.1 L
Plt Count 200
Sodium 141
Potassium 4.5
Chloride 110 H
Carbon Dioxide 25
BUN 28 H
Creatinine 0.8
Glucose 123 H
Calcium 8.5
Total Bilirubin 0.7
AST 31
ALT 15
Alkaline Phosphatase 174 H
Vital Signs:
Vital Signs
Temp Pulse Resp BP Pulse Ox
97.2 F 87 22 158/82 95
11/05/23 07:40 11/05/23 07:53 11/05/23 07:40 11/05/23 07:53 11/05/23 07:40
I&O
11/04/23 11/05/23 11/06/23
06:59 06:59 06:59
Intake Total 360 / 360 240 / 240
Output Total 200 / 200
Balance 160 / 160 240 / 240
Review of Systems
-
Respiratory: Reports No Symptoms
Cardiac: Reports No Symptoms
Abdomen/GI: Reports No Symptoms
Physical Exam
-
General: No Apparent Distress and Comfortable
HEENT: Negative Oxygen
Respiratory: Clear to Auscultation
Cardiac: Regular Rhythm and S1/S2; Negative Murmur or Rub
GI: Soft, Nontender, Normal Bowel Sounds and Distended
Musculoskeletal: No Edema
Neuro: Awake, Alert, Oriented, No Motor Deficits and Nonfocal/Grossly Intact
Psych: Calm
[2023-11-05] MEDS: TYLENOL 650 MG PO (20:18)
[2023-11-05] MEDS: MORPHINE SULFATE 1 MG IV (20:47)
[2023-11-05 23:12] VITALS: BP 132/61
[2023-11-06] MEDS: MAXIPIME 2000 MG IV ×2 (05:02→17:16)
[2023-11-06] MEDS: STERILE WATER FOR INJECTION 10 ML IV ×2 (05:02→17:16)
[2023-11-06 05:16] VITALS: BMI 23.1
[2023-11-06] MEDS: TYLENOL 650 MG PO ×3 (05:51→20:00)
[2023-11-06] MEDS: TENORMIN 50 MG PO (07:29)
[2023-11-06] MEDS: ULTRAM 50 MG PO ×3 (07:30→22:57)
[2023-11-06] MEDS: ELIQUIS 10 MG PO (07:30)
[2023-11-06] MEDS: HYDROPHOR 1 APPLIC TOPICAL (07:30)
[2023-11-06] MEDS: DESENEX/MITRAZOL/ZEASORB 1 APPLIC TOPICAL ×2 (07:30→20:00)
[2023-11-06] MEDS: BUMEX 0.5 MG PO (07:30)
[2023-11-06] MEDS: PROTONIX 40 MG PO (07:30)
[2023-11-06 07:53] VITALS: BP 144/58
--- NOTE | 2023-11-06 11:22 | W.PN.GI.CBS2 ---
Today's Communication / Plan
-
para in AM
INR
Eliquis held
Assessment / Plan
-
Pt is a 88yo with hx DM type 2, HTN, hyperlipidemia, GERD, chronic back pain, OTONIEL, pleural effusion with admission in September with confusion and ERIC with concern for underlying dementia. She now returns with shortness of breath and hypoxemia with
noted large right pleural effusion increased from September s/p thoracentesis completed for 2 liters. Asked to see an CT also completed with concern for cirrhosis, ascites, AC thickening colopathy vs infectious colitis, rectal thickening possible
adrenal adenoma, bladder thickening, b/l sacral fractures and DDD. Asked to see for noted findings.
-cirrhosis on CT with ascites
-CT with ascending colon edema and wall thickening portal colopathy vs infectious colitis
-rectal thickening with ? mass not noted on exam
-large right pleural effusion s/p thoracentesis 10/03- 1149, 11/02 1999
-acute occlusive deep venous thrombosis and left peroneal vein
-recent admit with ERIC and change in mental status
-hx LE edema new several months ago
-hx chronic OTONIEL
-hypoalbuminemia
other medical problems:
-DM type 2
-HTN
-hx diabetes insipidus
-hyperlipidemia
-GERD
-chronic back pain/hx spinal fracture
-neuropathy
-diverticulosis
-ricardo
PLAN:
1 recurrent right pleural effusion transudative etiology could be possible underlying cardiogenic versus related to cirrhosis and hepatic hydrothorax. She is status post thoracenteses with 2 L drained 11/01 and 1.1 L drained 10/03. May need
repeated thoracenteses if she has reaccumulation and may need to consider pleurodesis versus TIPS if having recurrent frequent reaccumulation. chest tube is relatively contraindicated with hepatic hydrothorax. Possible etiology of cirrhosis may be
from [facility]. May need echocardiogram and possible cardiology evaluation if family wants to proceed with aggressive workup. Will need diuretic she is currently on Bumex may need to consider switching to Lasix 40 mg and Aldactone 100 mg. Will
schedule for paracenteses patient agreeable and family also agreeable will prevent reaccumulation if hepatic hydrothorax of the pleural effusion. Will also rule out SBP given bacteremia with E. coli. ammonia level is normal. Given her age,
comorbidities and possible underlying dementia may need to also consider palliative care if worsens. Will also get US with dopplers. Eliquis held 11/04 for para and will get INR.
2. E. coli bacteremia currently on antibiotics(Cefepime) no obvious etiology urine cultures are negative repeat blood cultures are negative. Status post cholecystectomy and LFTs are normal doubt cholangitis unclear if she had prior ERCP there is
evidence of small amount of pneumobilia in the liver and common hepatic duct.,no CBD dilatation. possible bacterial translocation from gut although there was questionable colitis versus colopathy noted on CT no symptoms of colitis currently she has
no diarrhea or rectal bleeding also r/o SB., BM normal no diarrhea/bleeding. Also questionable rectal mass on CT which was not palpated on rectal exam performed by Usha Shine [employer]. Family wants to hold off on endoscopic workup and treat
conservatively.
3. Acute peroneal DVT has been started on Eliquis (held for para)currently has no overt bleeding continue to monitor hemoglobin
Subjective
Subjective
Date of Service: November 06, 2023
Awake and denies abdominal pain currently complains of fatigue
Objective
Data Reviewed
Laboratory Data:
Laboratory Results
11/05/23 07:22
11/05/23 07:22
Laboratory Results
Magnesium 2.1 mg/dl (1.6-2.3) 11/04/23 07:32
Total Bilirubin 0.7 mg/dl (0.2-1.3) 11/05/23 07:22
AST 31 U/L (14-36) 11/05/23 07:22
ALT 15 U/L (0-35) 11/05/23 07:22
Alkaline Phosphatase 174 U/L (38-126) H 11/05/23 07:22
Vital Signs and I&O:
Vital Signs
Temp Pulse Resp BP Pulse Ox
98.0 F 58 18 144/58 97
11/06/23 07:53 11/06/23 07:53 11/06/23 07:53 11/06/23 07:53 11/06/23 07:53
I&O
11/05/23 11/06/23 11/07/23
06:59 06:59 06:59
Intake Total 240 / 240 900 / 900
Balance 240 / 240 900 / 900
Physical Exam
Physical Exam
Cardiology: Normal Sinus Rhythm
Pulmonary: Clear
GI: Soft, Distended (Mildly distended), Non Distended and Normal Bowel Sounds
[2023-11-06 11:51] LABS: INR 3.57; PT 35.7 Sec (11.4-14.6)
--- NOTE | 2023-11-06 14:09 | W.PN.HOSP.TC ---
Today's Communication/Plan
-
f/u abd doppler report
pending paracentesis
Assessment / Plan
Assessment / Plan
CT C/A/P
CHEST:
1. LARGE RIGHT PLEURAL EFFUSION causing mild right to left mediastinal shift and complete compressive atelectasis of the right lower and middle lobes.
2. Small left pleural effusion.
3. Mild cardiomegaly.
ABDOMEN and PELVIS:
1. Small to moderate volume of ascites.
2. Mild hepatic cirrhosis.
3. Severe submucosal edema and wall thickening throughout the ascending colon. Diagnostic possibilities are (1) severe portal hypertensive colopathy or (2) a severe infectious colitis.
4. Severe circumferential wall thickening in the rectum. Diagnostic possibilities are (1) an acute infectious proctocolitis or (2) rectal adenocarcinoma.
5. Severe diverticulosis in the descending and sigmoid colon.
6. Previous cholecystectomy.
7. 1.7 cm left adrenal mass (possibly an adenoma).
8. Moderate diffuse urinary bladder wall thickening (either underdistention or cystitis).
9. Acute bilateral sacral insufficiency fractures.
10. 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
11. Moderate anasarca.

Acute Hypoxic Respiratory failure - improved
Recurrent right sided pleural effusion - presuming hepatic hydrothorax
-s/p thoracentesis of 2L transudative fluid
-on 10/03 had 1.1 L transudative fluid out
-unfortunately likely to reaccumulate
Sepsis
E-coli bacteremia
-possible from gut translocation
-CT a/p finding as above
-colitis finding possible portal colopathy related.
-currently on cefepime (day 5), continue, broaden the coverage for anaerobics if clinically worsened,
Cirrhosis - unknown etio
Ascites
-Abd US doppler ordered
-IRAD consulted for paracentesis
-If have any episode of metabolic encephalopathy, will need lactulose dosing
Rectal wall thickening
-possible due to portal HTN related as well vs cancer
-GI evaluated and discussed with family, not interested in endoscopy
Essential Hypertension
-bumex/atenolol resume back
Left Fibula Fracture with immobilizer and lower ext edema
--US with acute DVT
-on eliquis thearpy
-Continue Left Knee Immobilization--PT/OT
GERD
-Continue Protonix
Anemia of chronic disease
-Hgb stable
Incidental adrenal mass-
-likely benign
-1.7 cm left adrenal mass (possibly an adenoma)
-Follow up with PCP
Stage II decubitus ulcer (POA) likely pressure injury
-Wound care was consulted
Type II DM
Essential HTN
h/o Diabetes insipidus
GERD
DVT prophylaxis: Lovenox
Code Status: DNR as per [place] paperwork
Anticipated Discharge: 24 - 48 hours
Subjective/Interval History
-
Date of Service: November 06, 2023
poor apetite today
no nausea/vomiting
no other acute issues reported
Objective Data
-
Labs:
Laboratory Results
11/06/23
11:35
PT 35.7 H
INR 3.57
Vital Signs:
Vital Signs
Temp Pulse Resp BP Pulse Ox
98.0 F 58 18 144/58 97
11/06/23 07:53 11/06/23 07:53 11/06/23 07:53 11/06/23 07:53 11/06/23 07:53
I&O
11/05/23 11/06/23 11/07/23
06:59 06:59 06:59
Intake Total 240 / 240 900 / 900
Balance 240 / 240 900 / 900
Review of Systems
-
Respiratory: Reports No Symptoms
Cardiac: Reports No Symptoms
Abdomen/GI: Denies Abdominal Pain or Nausea
Physical Exam
-
General: No Apparent Distress and Comfortable
HEENT: Negative Oxygen
Respiratory: Clear to Auscultation
Cardiac: Regular Rhythm and S1/S2; Negative Murmur or Rub
GI: Soft, Nontender, Normal Bowel Sounds and Distended
Musculoskeletal: No Edema
Neuro: Awake, Alert, Oriented, No Motor Deficits and Nonfocal/Grossly Intact
Psych: Calm
[2023-11-06 16:00] VITALS: BP 139/59
[2023-11-06 22:47] VITALS: BP 141/54
[2023-11-07] VITALS (7 sets, daily range): BP systolic 68–156; BP diastolic 44–71; PULSE 65; BMI 22.9
[2023-11-07] MEDS: STERILE WATER FOR INJECTION 10 ML IV (05:29)
[2023-11-07] MEDS: MAXIPIME 2000 MG IV (05:29)
[2023-11-07 08:10] LABS: Hematocrit 33.9 % (37.0-47.0); Hemoglobin 10.9 g/dL (12.0-16.0); Mean Corp Hgb Conc. 32.2 g/dL (33.0-37.0); Mean Corpuscular Hgb 28.6 pg (27.0-31.0); Mean Platelet Volume 10.3 fL (7.4-10.4); Platelet Count 267 10^3/uL (130-400); Red Blood Cell Count 3.81 10^6/uL (4.20-5.40); White Blood Cell Count 10.1 10^3/uL (4.8-10.8)
[2023-11-07 08:23] LABS: Blood Urea Nitrogen 29 mg/dl (7-17); Calcium 8.7 mg/dl (8.4-10.2); Carbon Dioxide 27 mmol/L (22-30); Chloride 107 mmol/L (98-107); Estimated Creatinine Clearance 33 ml/min; Glucose 108 mg/dl (70-99); Potassium 4.8 mmol/L (3.5-5.1); Sodium 140 mmol/L (135-145); eGFR 54.53
--- NOTE | 2023-11-07 08:44 | W.PN.GI.CBS2 ---
Today's Communication / Plan
-
repeat INR
If INR ok then para today
Hold Eliquis for para
Assessment / Plan
-
Pt is a 88yo with hx DM type 2, HTN, hyperlipidemia, GERD, chronic back pain, OTONIEL, pleural effusion with admission in September with confusion and ERIC with concern for underlying dementia. She now returns with shortness of breath and hypoxemia with
noted large right pleural effusion increased from September s/p thoracentesis completed for 2 liters. Asked to see an CT also completed with concern for cirrhosis, ascites, AC thickening colopathy vs infectious colitis, rectal thickening possible
adrenal adenoma, bladder thickening, b/l sacral fractures and DDD. Asked to see for noted findings.
-cirrhosis on CT with ascites
-CT with ascending colon edema and wall thickening portal colopathy vs infectious colitis
-rectal thickening with ? mass not noted on exam
-large right pleural effusion s/p thoracentesis 10/03- 1150, 11/02 1999
-acute occlusive deep venous thrombosis and left peroneal vein
-recent admit with ERIC and change in mental status
-hx LE edema new several months ago
-hx chronic OTONIEL
-hypoalbuminemia
other medical problems:
-DM type 2
-HTN
-hx diabetes insipidus
-hyperlipidemia
-GERD
-chronic back pain/hx spinal fracture
-neuropathy
-diverticulosis
-ricardo
PLAN:
1 recurrent right pleural effusion transudative etiology could be possible underlying cardiogenic versus related to cirrhosis and hepatic hydrothorax. She is status post thoracenteses with 2 L drained 11/01 and 1.1 L drained 10/03. May need
repeated thoracenteses if she has reaccumulation and may need to consider pleurodesis versus TIPS if having recurrent frequent reaccumulation. chest tube is relatively contraindicated with hepatic hydrothorax. Possible etiology of cirrhosis may be
from [facility]. May need echocardiogram and possible cardiology evaluation if family wants to proceed with aggressive workup. Will need diuretic she is currently on Bumex may need to consider switching to Lasix 40 mg and Aldactone 100 mg. Will
schedule for paracenteses patient agreeable and family also agreeable will prevent reaccumulation if hepatic hydrothorax of the pleural effusion. Will also rule out SBP given bacteremia with E. coli. ammonia level is normal. Given her age,
comorbidities and possible underlying dementia may need to also consider palliative care if worsens. Will also get US with dopplers results- P. Eliquis held 11/04 for para and INR 3.5 11/05 today pending, may need Vitamin k for malnutrition if repeat
also elevated (may be from Eliquis and malnutrition)
2. E. coli bacteremia currently on antibiotics(Cefepime) no obvious etiology urine cultures are negative repeat blood cultures are negative. Status post cholecystectomy and LFTs are normal doubt cholangitis unclear if she had prior ERCP there is
evidence of small amount of pneumobilia in the liver and common hepatic duct.,no CBD dilatation. possible bacterial translocation from gut although there was questionable colitis versus colopathy noted on CT no symptoms of colitis currently she has
no diarrhea or rectal bleeding also r/o SB., BM normal no diarrhea/bleeding. Also questionable rectal mass on CT which was not palpated on rectal exam performed by Usha Shine NP. Family wants to hold off on endoscopic workup and treat
conservatively.
3. Acute peroneal DVT has been started on Eliquis (held for para)currently has no overt bleeding continue to monitor hemoglobin
Subjective
Subjective
Date of Service: November 07, 2023
Complains of decreased appetite and fatigue, currently has no abdominal pain, minimal shortness of breath
Objective
Data Reviewed
Laboratory Data:
Laboratory Results
11/07/23 06:41
11/07/23 06:41
Laboratory Results
PT 35.7 Sec (11.4-14.6) H 11/06/23 11:35
INR 3.57 11/06/23 11:35
Magnesium 2.1 mg/dl (1.6-2.3) 11/04/23 07:32
Total Bilirubin 0.7 mg/dl (0.2-1.3) 11/05/23 07:22
AST 31 U/L (14-36) 11/05/23 07:22
ALT 15 U/L (0-35) 11/05/23 07:22
Alkaline Phosphatase 174 U/L (38-126) H 11/05/23 07:22
Vital Signs and I&O:
Vital Signs
Temp Pulse Resp BP Pulse Ox
97.6 F 63 16 106/44 93
11/07/23 08:00 11/07/23 08:00 11/07/23 08:00 11/07/23 08:00 11/07/23 08:00
I&O
11/06/23 11/07/23 11/08/23
06:59 06:59 06:59
Intake Total 900 / 900 600 / 600
Balance 900 / 900 600 / 600
11/06/23 INR 3.57
Physical Exam
Physical Exam
Cardiology: Normal Sinus Rhythm
Pulmonary: Clear and Other (decreased BS at bases)
GI: Soft, Distended (mildly distended), Non Tender and Normal Bowel Sounds
[2023-11-07 09:03] LABS: INR 2.23; PT 24.5 Sec (11.4-14.6)
[2023-11-07] MEDS: BUMEX 0.5 MG PO (09:45)
[2023-11-07] MEDS: PROTONIX 40 MG PO (09:45)
[2023-11-07] MEDS: DESENEX/MITRAZOL/ZEASORB 1 APPLIC TOPICAL ×2 (09:51→21:14)
[2023-11-07] MEDS: HYDROPHOR 1 APPLIC TOPICAL (09:52)
[2023-11-07] MEDS: ULTRAM 50 MG PO ×2 (09:54→17:29)
[2023-11-07] MEDS: TENORMIN 50 MG PO (09:55)
[2023-11-07 11:19] LABS: Body Fluid WBC 112 /CUMM
[2023-11-07 11:20] LABS: Body Fluid Mononuclear 78.5 %; Body Fluid Polymorphonuclear 21.5 %
[2023-11-07 11:26] LABS: Body Fluid Second Tech AMA
[2023-11-07 11:34] LABS: Body Fluid Albumin < 1.0 g/dl; Body Fluid Protein < 2.0 g/dl
--- NOTE | 2023-11-07 14:04 | CM ---
food general manager reviewed patient's chart and met with patient and spoke with patient's daughter in law, Jacquie and plan is for patient to return to [facility] when stable, immigration case manager spoke with admissions at [facility] and they will
have a bed for patient, patient needs Auth from insurance.
[facility]
Dr. Negrete .
Plan; Skilled placement at [facility] when stable.
--- NOTE | 2023-11-07 14:11 | CON.ID ---
Consultation
-
Date/Time Consultation Requested: 11/07/2023 1002
Date/Time Consultation Performed: 11/07/2023 1344
Requesting Provider: Dr. Israel
Performing Provider: Dr. Hwang
Reason for Consultation: E. coli bacteremia
Chief Complaint / Past History
History of Present Illness
Petrona Sanchez is an 88-year-old female being evaluated at the request of Dr. Israel in regards to E. coli bacteremia. History is obtained from chart review, along with patient interview.
The patient recently was admitted to [facility] from 09/28 through 10/04, during which time she was treated for toxic metabolic encephalopathy and acute renal insufficiency. She subsequently presented back on 10/06 after a fall/slide from
wheelchair.
She presents back to [place] on 10/31 secondary to reported shortness of breath. Workup revealed the presence of a pleural effusion for which she has undergone 2 thoracentesis so far. Blood cultures obtained at the time of admission have been
found to be positive for E. coli, and Infectious Diseases is asked to comment upon further antimicrobial management.
Her hospital course has been significant for the finding of ascites on CAT scan. The patient is status post paracentesis earlier today. She is currently being worked for possible cirrhosis also.
Past History
Additional Past Medical History:
GERD
DM type II
HTN
Dyslipidemia
Chronic back pain
Neuropathy
Diverticulosis
Renal insufficiency
Additional Past Surgical History:
Right TKA
Cholecystectomy
Allergy History:
aspirin Allergy (Verified 10/07/23 20:22)
Unknown
iodine Allergy (Verified 10/07/23 20:22)
Unknown
Penicillins Allergy (Verified 10/07/23 20:22)
Unknown
Medications Reviewed: Yes
Current Antibiotics:
Cefepime 2 g IV every 12 hours
Social History
Tobacco: Non-Smoker
Alcohol: None
Drug: None
Living: [facility]
Employment: Retired
Family History
Family History: Not Pertinent
Review of Systems
Vital Signs
Temp Pulse Resp BP Pulse Ox
97.8 F 65 20 128/63 95
11/07/23 11:00 11/07/23 11:00 11/07/23 11:00 11/07/23 11:00 11/07/23 11:00
Physical Exam
Physical Exam
Constitutional: No Acute Distress, Comfortable, Chronically Ill and Non-toxic
Head: Normocephalic
Eyes: Pupils Equal, Pupils Round, No Conjunctival Hemorrhage and Sclera Anicteric
Oral: No Thrush and No Ulcers
Cardiovascular: S1/S2; Negative S3/S4
Pulmonary: Clear and Non Labored; Negative Wheezes or Rales
Gastrointestinal: Soft, Tender (Mild; diffuse) and Non Distended
Extremities: Negative Edema, Cyanosis or Erythema
Skin: Warm and Dry; Negative Rash or Jaundice
Neurological: Awake and Alert
Psychological: Calm
Lab / Diagnostic Study Results
11/07/23 06:41
11/07/23 06:41
Abs Immat Gran (auto) 0.0 10^3/uL (0-0.05) 11/05/23 07:22
Absolute Neuts (auto) 3.8 10^3/uL (1.4-6.5) 11/05/23 07:22
Absolute Lymphs (auto) 1.6 10^3/uL (1.2-3.4) 11/05/23 07:22
Absolute Monos (auto) 0.6 10^3/uL (0.1-0.6) 11/05/23 07:22
Absolute Basos (auto) 0.0 10^3/uL (0-0.2) 11/05/23 07:22
Immature Gran % 0.6 % (0-0.5) H 11/05/23 07:22
Neutrophils % 61.0 % (42.2-75.2) 11/05/23 07:22
Lymphocytes % 25.0 % (20.5-51.1) 11/05/23 07:22
Monocytes % 9.2 % (1.7-9.3) 11/05/23 07:22
Eosinophils % 3.7 % (0-6) 11/05/23 07:22
Basophils % 0.5 % (0-2) 11/05/23 07:22
PT 24.5 Sec (11.4-14.6) H 11/07/23 08:39
INR 2.23 11/07/23 08:39
Lactic Acid 1.5 mmol/L (0.7-2.0) 11/02/23 01:54
Ur Squamous Epith Cells 6-10 /LPF (Few) 11/02/23 05:13
Microbiology Results
Micro:
11/07/23 10:46 Body Fluid Culture - Pending
Peritoneal Fluid Gram Stain - Preliminary
11/03/23 12:50 Blood Culture - Preliminary
Blood/Venous No Growth in 4 days- Final report to follow
11/02/23 11:07 Body Fluid Culture - Final
Pleural Fluid No Growth After 72 Hours
Gram Stain - Final
11/01/23 18:01 Blood Culture - Final
Blood/Venous Escherichia coli
Gram Stain - Final
11/01/23 16:47 Blood Culture - Final
Blood/Venous Escherichia coli
Gram Stain - Final
11/02/23 05:13 Urine Culture - Final
Urine NO GROWTH
11/01/23 16:47 Influenza Types A & B (JAMARI) - Final
Nasal Swab Negative for Influenza A & B, NAAT
Negative results must be combined with clinical observations
and patient history.
Nucleic Acid Amplification test (NAAT)performed on the
[employer] platform.
Imaging:
11/02/2023 duplex ultrasound left lower extremity: Acute occlusive DVT in the left peroneal vein. The left common femoral, femoral, popliteal, and posterior tibial veins are patent.
11/01/2023 CT chest abdomen pelvis: A large right pleural effusion noted, causing mild right to left mediastinal shift and completely compressive atelectasis of the left lower and middle lobes. Small left pleural effusion noted. Small to moderate
volume ascites. Mild hepatic cirrhosis noted. Severe submucosal edema and wall thickening throughout the ascending colon. Severe circumferential wall thickening in the rectum. Severe diverticulosis in the descending and sigmoid colon. Please
see full dictation for additional detail. Film personally reviewed.
Assessment / Plan
E. coli bacteremia
- suspected 2* gut translocation. No evidence of SBP
Pleural effusion
- s/p thoracentesis x [address] rectal thickening on CT
Acute occlusive DVT
GERD
DM type II
HTN
Dyslipidemia
Chronic back pain
Neuropathy
Diverticulosis
Renal insufficiency
Recommendations:
Sensitivities of recovered isolate reviewed.
De-escalate cefepime to cefazolin 2 g IV every 8 hours
Monitor white count and temperature curve. Repeat blood cultures without growth x 4 days.
Workup of cirrhosis ongoing by GI
Follow CXR for reaccumulation of pleural effusion.
Care Review
Plan reviewed with: Physician (GI)
--- NOTE | 2023-11-07 15:35 | W.PN.HOSP.TC ---
Today's Communication/Plan
-
Wait for fluid cultures
Echo
PT OT
Assessment / Plan
Assessment / Plan
CT C/A/P
CHEST:
1. LARGE RIGHT PLEURAL EFFUSION causing mild right to left mediastinal shift and complete compressive atelectasis of the right lower and middle lobes.
2. Small left pleural effusion.
3. Mild cardiomegaly.
ABDOMEN and PELVIS:
1. Small to moderate volume of ascites.
2. Mild hepatic cirrhosis.
3. Severe submucosal edema and wall thickening throughout the ascending colon. Diagnostic possibilities are (1) severe portal hypertensive colopathy or (2) a severe infectious colitis.
4. Severe circumferential wall thickening in the rectum. Diagnostic possibilities are (1) an acute infectious proctocolitis or (2) rectal adenocarcinoma.
5. Severe diverticulosis in the descending and sigmoid colon.
6. Previous cholecystectomy.
7. 1.7 cm left adrenal mass (possibly an adenoma).
8. Moderate diffuse urinary bladder wall thickening (either underdistention or cystitis).
9. Acute bilateral sacral insufficiency fractures.
10. 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
11. Moderate anasarca.
88-year-old
CT abdomen and pelvis-small to moderate volume ascites, hepatic cirrhosis, severe submucosal edema and wall thickening throughout the ascending colon-severe portal hypertensive colopathy versus severe infectious colitis.
Severe circumferential wall thickening in the rectum acute infectious proctocolitis versus rectal adenocarcinoma
Severe diverticulosis in the descending and sigmoid colon previous cholecystectomy
1.7 cm left adrenal mass
Moderate diffuse urinary bladder wall thickening
Acute bilateral sacral insufficiency fractures
Severe multilevel discogenic DJD
Moderate anasarca
CVS: S1-S2 normal
Chest: decreased
Abdomen: Soft, NT / Bowel sounds present
Extremities: No LE edema
# Acute hypoxic respiratory failure
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
Status post thoracentesis with 2 L of transudative fluid removed 11/02/2023
Thoracentesis on 09/27/2023 with 1.1 L of transudative fluid
Continue Bumex
Check ECHO
# Sepsis with E. coli bacteremia-
Likely secondary to GI translocation
Continue Ancef
ID consulted
# Recent admission with ERIC and change in mental status
# Cirrhosis-unknown etiology
Ascites
Ammonia less than 9
Status post paracentesis 11/07/2023 with 1950 mL of ascitic fluid
Fluid not consistent with SBP
# Left fibular fracture with immobilizer and left lower extremity edema- around Sept 17 nth
Ultrasound with acute DVT
Continue Eliquis
Continue left knee immobilization
# Type 2 diabetes- diet controlled
# Hypertension-atenolol
# Rectal wall thickening-GI discussed the family-they are not interested in colonoscopy
# Hypertension-Atenolol
# GERD-continue PPI
# Anemia of chronic disease
# Flaccid hemiplegia affecting the right side
# Incidental adrenal mass 1.7 cm on the left side possibly [id number]-[id number]-eg with PCP
# Stage II decubitus ulcer-pressure injury likely-continue wound care
# Hypoalbuminemia
# Possible cognitive dysfunction
# Spinal stenosis/ history of sacral fractures-continue gabapentin
# Diverticulosis
# Anxiety
# Ex-smoker
# DVT prophylaxis
# DNR
Discussed with GI
Called and spoke to DIL in detail and updated. She asked if pt is hospice appropriate as she has been declining since August. She got to assisted living in August. She was independent before that.
Time spent over 50 min
Anticipated Discharge: 24 - 48 hours
Subjective/Interval History
-
Date of Service: November 07, 2023
Objective Data
-
Labs:
Laboratory Results
11/07/23 11/07/23
06:41 08:39
WBC 10.1
Hgb 10.9 L
Hct 33.9 L
Plt Count 267 D
PT 24.5 H
INR 2.23
Sodium 140
Potassium 4.8
Chloride 107
Carbon Dioxide 27
BUN 29 H
Creatinine 1.0
Glucose 108 H
Calcium 8.7
Vital Signs:
Vital Signs
Temp Pulse Resp BP Pulse Ox
97.8 F 65 20 128/63 95
11/07/23 11:00 11/07/23 11:00 11/07/23 11:00 11/07/23 11:00 11/07/23 11:00
I&O
11/06/23 11/07/23 11/08/23
06:59 06:59 06:59
Intake Total 900 / 900 600 / 600
Balance 900 / 900 600 / 600
[2023-11-07] MEDS: ANCEF 10 IV (17:28)
[2023-11-07] MEDS: STERILE WATER FOR INJECTION IV (18:02)
[2023-11-07 21:05] LABS: Hepatitis B Surface Antigen Negative (Negative)
[2023-11-07] MEDS: ELIQUIS 10 MG PO (21:13)
[2023-11-07 21:24] LABS: Hepatitis B Core Ab, Total Negative (Negative); Hepatitis B Surface Antibody Negative; Hepatitis C Antibody Negative (Negative)
[2023-11-08] MEDS: ANCEF 10 IV ×4 (00:51→23:03)
[2023-11-08] MEDS: ULTRAM 50 MG PO ×4 (00:51→23:03)
[2023-11-08 05:47] LABS: Hematocrit 35.5 % (37.0-47.0); Hemoglobin 11.3 g/dL (12.0-16.0); Mean Corp Hgb Conc. 31.8 g/dL (33.0-37.0); Mean Corpuscular Hgb 27.5 pg (27.0-31.0); Mean Corpuscular Volume 86.4 fL (81.0-99.0); Mean Platelet Volume 9.7 fL (7.4-10.4); Platelet Count 284 10^3/uL (130-400); Red Blood Cell Count 4.11 10^6/uL (4.20-5.40); Red Cell Dist. Width 16.5 % (11.5-14.5); White Blood Cell Count 12.5 10^3/uL (4.8-10.8)
[2023-11-08 06:00] VITALS: BMI 22.8
[2023-11-08 06:26] LABS: Blood Urea Nitrogen 32 mg/dl (7-17); Calcium 8.6 mg/dl (8.4-10.2); Carbon Dioxide 24 mmol/L (22-30); Chloride 107 mmol/L (98-107); Estimated Creatinine Clearance 33 ml/min; Glucose 100 mg/dl (70-99); Potassium 4.3 mmol/L (3.5-5.1); Sodium 140 mmol/L (135-145); eGFR 54.53
[2023-11-08] MEDS: STERILE WATER FOR INJECTION IV (07:32)
[2023-11-08 07:35] VITALS: BP 131/57
[2023-11-08] MEDS: PROTONIX 40 MG PO (07:45)
[2023-11-08] MEDS: TENORMIN 50 MG PO (07:45)
[2023-11-08] MEDS: ELIQUIS 10 MG PO ×2 (07:45→19:53)
[2023-11-08] MEDS: BUMEX 0.5 MG PO (07:46)
[2023-11-08] MEDS: DESENEX/MITRAZOL/ZEASORB 1 APPLIC TOPICAL ×2 (07:50→19:53)
[2023-11-08] MEDS: HYDROPHOR 1 APPLIC TOPICAL (07:50)
[2023-11-08] MEDS: COMPAZINE 10 MG IV (08:54)
--- NOTE | 2023-11-08 09:20 | W.PN.GI.CBS2 ---
Addendum entered and electronically signed by Radha Oliva MD 11/08/23 09:33:
Also added lactulose and Xifaxan
Original Note:
Today's Communication / Plan
-
OK to resume Eliquis
PRN para and thoracentesis
Continue diuretics
Assessment / Plan
-
Pt is a 88yo with hx DM type 2, HTN, hyperlipidemia, GERD, chronic back pain, OTONIEL, pleural effusion with admission in September with confusion and ERIC with concern for underlying dementia. She now returns with shortness of breath and hypoxemia with
noted large right pleural effusion increased from September s/p thoracentesis completed for 2 liters. Asked to see an CT also completed with concern for cirrhosis, ascites, AC thickening colopathy vs infectious colitis, rectal thickening possible
adrenal adenoma, bladder thickening, b/l sacral fractures and DDD. Asked to see for noted findings.
-cirrhosis on CT with ascites
-CT with ascending colon edema and wall thickening portal colopathy vs infectious colitis
-rectal thickening with ? mass not noted on exam
-large right pleural effusion s/p thoracentesis 10/03- 1150, 11/02 1999
-acute occlusive deep venous thrombosis and left peroneal vein
-recent admit with ERIC and change in mental status
-hx LE edema new several months ago
-hx chronic OTONIEL
-hypoalbuminemia
other medical problems:
-DM type 2
-HTN
-hx diabetes insipidus
-hyperlipidemia
-GERD
-chronic back pain/hx spinal fracture
-neuropathy
-diverticulosis
-ricardo
PLAN:
1 recurrent right pleural effusion transudative etiology could be related to cirrhosis and hepatic hydrothorax. She is status post thoracenteses with 2 L drained 11/01 and 1.1 L drained 10/03. May need repeated thoracenteses if she has
reaccumulation and may need to consider pleurodesis versus TIPS if having recurrent frequent reaccumulation. chest tube is relatively contraindicated with hepatic hydrothorax. Possible etiology of cirrhosis may be from MASH. Will need diuretic she
is currently on Bumex may need to consider switching to Lasix 40 mg and Aldactone 100 mg. s/p para 11/06 neg for SBP and SAAG > 1.1 consistent with PHT. Given her age, comorbidities and possible underlying dementia may need to also consider
palliative care if worsens / family agreable. Echocardiogram is unremarkable. Ultrasound with Dopplers also unremarkable. continue thoracenteses and paracenteses as needed.
2. E. coli bacteremia currently on antibiotics, ID input noted. urine cultures are negative repeat blood cultures are negative. also tap neg for SBP. Status post cholecystectomy and LFTs are normal doubt cholangitis unclear if she had prior ERCP
there is evidence of small amount of pneumobilia in the liver and common hepatic duct.,no CBD dilatation. possible bacterial translocation from gut although there was questionable colitis versus colopathy noted on CT no symptoms of colitis currently
she has no diarrhea or rectal bleeding, BM normal no diarrhea/bleeding. Also questionable rectal mass on CT which was not palpated on rectal exam performed by Usha Shine [employer]. Family wants to hold off on endoscopic workup and treat conservatively.
3. Acute peroneal DVT has been started on Eliquis currently has no overt bleeding continue to monitor hemoglobin
Will s/o and will be available as needed
Subjective
Subjective
Date of Service: November 08, 2023
Patient looks comfortable denies abdominal pain she status post paracentesis yesterday negative for SBP
Objective
Data Reviewed
Laboratory Data:
Laboratory Results
11/08/23 05:31
11/08/23 05:31
Laboratory Results
PT 24.5 Sec (11.4-14.6) H 11/07/23 08:39
INR 2.23 11/07/23 08:39
Magnesium 2.1 mg/dl (1.6-2.3) 11/04/23 07:32
Total Bilirubin 0.7 mg/dl (0.2-1.3) 11/05/23 07:22
AST 31 U/L (14-36) 11/05/23 07:22
ALT 15 U/L (0-35) 11/05/23 07:22
Alkaline Phosphatase 174 U/L (38-126) H 11/05/23 07:22
Vital Signs and I&O:
Vital Signs
Temp Pulse Resp BP Pulse Ox
97.8 F 69 18 129/54 93
11/08/23 07:35 11/08/23 07:46 11/08/23 07:35 11/08/23 07:46 11/08/23 07:35
I&O
11/07/23 11/08/23 11/09/23
06:59 06:59 06:59
Intake Total 600 / 600 240 / 240
600 / 600 240 / 240
11/06 US with para IMPRESSION:
Successful ultrasound-guided paracentesis yielding 1950 mL of ascitic fluid.
11/06 ECHO
CONCLUSIONS
Normal left ventricular size, wall thickness, and systolic function.
LV ejection fraction is 55-60% by visual assessment. Normal diastolic function.
Normal right ventricular size and function.
Mild aortic regurgitation.
Estimated pulmonary artery pressure of 22 mmHg, assuming a right atrial
pressure of 3 mmHg.
No prior study available for comparison.
11/05 US with Dopplers
IMPRESSION:
Limited study
There is right-sided pleural effusion and small volume abdominal ascites
The liver is relatively small at 12 cm and heterogeneous in echotexture suggesting cirrhosis
Duplex ultrasound with color and spectral waveform analysis of the abdomen demonstrates no abnormalities.
There is normal hepatopedal flow in the portal veins.
There is normal flow in the hepatic artery and hepatic veins.
Physical Exam
Physical Exam
Cardiology: Normal Sinus Rhythm
Pulmonary: Clear
GI: Soft, Non Distended, Non Tender and Normal Bowel Sounds
--- NOTE | 2023-11-08 11:00 | W.PN.HOSP.TC ---
Today's Communication/Plan
-
nausea- med given
PT OT
Assessment / Plan
Assessment / Plan
CT C/A/P
CHEST:
1. LARGE RIGHT PLEURAL EFFUSION causing mild right to left mediastinal shift and complete compressive atelectasis of the right lower and middle lobes.
2. Small left pleural effusion.
3. Mild cardiomegaly.
ABDOMEN and PELVIS:
1. Small to moderate volume of ascites.
2. Mild hepatic cirrhosis.
3. Severe submucosal edema and wall thickening throughout the ascending colon. Diagnostic possibilities are (1) severe portal hypertensive colopathy or (2) a severe infectious colitis.
4. Severe circumferential wall thickening in the rectum. Diagnostic possibilities are (1) an acute infectious proctocolitis or (2) rectal adenocarcinoma.
5. Severe diverticulosis in the descending and sigmoid colon.
6. Previous cholecystectomy.
7. 1.7 cm left adrenal mass (possibly an adenoma).
8. Moderate diffuse urinary bladder wall thickening (either underdistention or cystitis).
9. Acute bilateral sacral insufficiency fractures.
10. 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
11. Moderate anasarca.
88-year-old
CT abdomen and pelvis-small to moderate volume ascites, hepatic cirrhosis, severe submucosal edema and wall thickening throughout the ascending colon-severe portal hypertensive colopathy versus severe infectious colitis.
Severe circumferential wall thickening in the rectum acute infectious proctocolitis versus rectal adenocarcinoma
Severe diverticulosis in the descending and sigmoid colon previous cholecystectomy
1.7 cm left adrenal mass
Moderate diffuse urinary bladder wall thickening
Acute bilateral sacral insufficiency fractures
Severe multilevel discogenic DJD
Moderate anasarca
CVS: S1-S2 normal
Chest: decreased
Abdomen: Soft, NT / Bowel sounds present
Extremities: No LE edema
Normal left ventricular size, wall thickness, and systolic function. LV ejection fraction is 55-60% by visual assessment. Normal diastolic function.Normal right ventricular size and function.Mild aortic regurgitation.Estimated pulmonary artery
pressure of 22 mmHg, assuming a right atrial pressure of 3 mmHg.No prior study available for comparison.
# Acute hypoxic respiratory failure
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
Status post thoracentesis with 2 L of transudative fluid removed 11/02/2023
Thoracentesis on 09/27/2023 with 1.1 L of transudative fluid
Continue Bumex
ECHO as above
# Sepsis with E. coli bacteremia
Likely secondary to GI translocation
Continue Ancef
ID consulted
# Recent admission with ERIC and change in mental status
# Cirrhosis-unknown etiology
Ascites
Ammonia less than 9
Status post paracentesis 11/07/2023 with 1950 mL of ascitic fluid
Fluid not consistent with SBP
# Left fibular fracture with immobilizer and left lower extremity edema- around Sept 17 nth
Ultrasound with acute DVT
Continue Eliquis
Continue left knee immobilization
# Type 2 diabetes- diet controlled
# Hypertension-atenolol
# Rectal wall thickening-GI discussed the family-they are not interested in colonoscopy
# Hypertension-Atenolol
# GERD-continue PPI
# Anemia of chronic disease
# Flaccid hemiplegia affecting the right side
# Incidental adrenal mass 1.7 cm on the left side possibly [id number]-[id number]-fm with PCP
# Stage II decubitus ulcer-pressure injury likely-continue wound care
# Hypoalbuminemia
# Possible cognitive dysfunction
# Spinal stenosis/ history of sacral fractures-continue gabapentin
# Diverticulosis
# Anxiety
# Ex-smoker
# DVT prophylaxis
# DNR
Discussed with GI
11/07/23-Spoke to DIL in detail and updated. She asked if pt is hospice appropriate as she has been declining since August. She got to assisted living in August. She was independent before that.
Time spent over 50 min
Anticipated Discharge: 24 - 48 hours
Subjective/Interval History
-
Date of Service: November 08, 2023
Objective Data
-
Labs:
Laboratory Results
11/08/23
05:31
WBC 12.5 H
Hgb 11.3 L
Hct 35.5 L
Plt Count 284
Sodium 140
Potassium 4.3
Chloride 107
Carbon Dioxide 24
BUN 32 H
Creatinine 1.0
Glucose 100 H
Calcium 8.6
Vital Signs:
Vital Signs
Temp Pulse Resp BP Pulse Ox
97.8 F 69 18 129/54 93
11/08/23 07:35 11/08/23 07:46 11/08/23 07:35 11/08/23 07:46 11/08/23 07:35
I&O
11/07/23 11/08/23 11/09/23
06:59 06:59 06:59
Intake Total 600 / 600 240 / 240
Balance 600 / 600 240 / 240
--- NOTE | 2023-11-08 11:38 | CM ---
regulatory product manager reviewed patient's chart and spoke with patient's physician this am, patient is not stable for discharge per physician and mental health case manager will need to follow for discharge planning needs, patient has been referred and accepted at
[facility] however patient will need to participate in physical therapy in order to obtain Auth for skilled rehab placement.
Plan; To follow with patient progress patient was admitted from [facility] where patient has been for skilled placement, prior to that patient was at [facility].
[2023-11-08 15:35] VITALS: BP 115/52
[2023-11-08 16:50] VITALS: BP 146/62; PULSE 75
[2023-11-08] MEDS: DUPHALAC/CHRONULAC 20 GRAMS PO (19:54)
[2023-11-08] MEDS: XIFAXAN 550 MG PO (19:54)
[2023-11-08] MEDS: TYLENOL 650 MG PO (20:40)
[2023-11-08] MEDS: LIDOCAINE 4% PATCH 1 PATCH TOPICAL (21:50)
[2023-11-08] MEDS: MELATONIN 3 MG PO (23:03)
[2023-11-08 23:49] VITALS: BP 131/53
[2023-11-09] MEDS: TYLENOL 650 MG PO ×2 (05:22→19:59)
[2023-11-09 06:00] VITALS: BMI 23.1
[2023-11-09 07:30] VITALS: BP 135/57
[2023-11-09 07:53] LABS: Hematocrit 34.9 % (37.0-47.0); Hemoglobin 11.6 g/dL (12.0-16.0); Mean Corp Hgb Conc. 33.2 g/dL (33.0-37.0); Mean Corpuscular Hgb 29.1 pg (27.0-31.0); Mean Corpuscular Volume 87.7 fL (81.0-99.0); Mean Platelet Volume 10.1 fL (7.4-10.4); Platelet Count 265 10^3/uL (130-400); Red Blood Cell Count 3.98 10^6/uL (4.20-5.40); Red Cell Dist. Width 16.7 % (11.5-14.5); White Blood Cell Count 11.6 10^3/uL (4.8-10.8)
[2023-11-09 08:46] LABS: Blood Urea Nitrogen 35 mg/dl (7-17); Calcium 8.5 mg/dl (8.4-10.2); Carbon Dioxide 23 mmol/L (22-30); Chloride 106 mmol/L (98-107); Estimated Creatinine Clearance 27 ml/min; Glucose 106 mg/dl (70-99); Potassium 3.9 mmol/L (3.5-5.1); Sodium 138 mmol/L (135-145); eGFR 43.81
[2023-11-09] MEDS: BUMEX 0.5 MG PO (09:04)
[2023-11-09] MEDS: ANCEF 10 IV ×3 (09:05→23:09)
[2023-11-09] MEDS: ELIQUIS 10 MG PO ×2 (09:05→19:59)
[2023-11-09] MEDS: TENORMIN 50 MG PO (09:05)
[2023-11-09] MEDS: PROTONIX 40 MG PO (09:05)
[2023-11-09] MEDS: DUPHALAC/CHRONULAC 20 GRAMS PO (09:05)
[2023-11-09] MEDS: XIFAXAN 550 MG PO ×2 (09:05→20:54)
[2023-11-09] MEDS: ULTRAM 50 MG PO ×3 (09:05→23:08)
[2023-11-09] MEDS: HYDROPHOR 1 APPLIC TOPICAL (09:08)
[2023-11-09] MEDS: DESENEX/MITRAZOL/ZEASORB 1 APPLIC TOPICAL ×2 (09:14→19:59)
--- NOTE | 2023-11-09 11:18 | W.PN.HOSP.TC ---
Today's Communication/Plan
-
Plan to transition from Bumex to spironolactone and Lasix
Trend daily BMP and LFTs
Orthopedics consult for fibular fracture
Continue with IV cefazolin, plan to transition to oral regimen
Assessment / Plan
Assessment / Plan
#Acute hypoxemic respiratory failure
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
#New onset cirrhosis with ascites
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
-Status post 2 L thoracentesis, transudative fluid per lights criteria, 11/02/2023
-S/p paracentesis with near 2 L fluid, SAAG >1.1, consistent with portal hypertension, no signs of SBP
-Echocardiogram with preserved LVEF, normal diastology and pulmonary pressures
-Has improved with Bumex regimen, now down to room air
-Was started on lactulose and Xifaxan regimen by GI
Plan
-Plan to transition Bumex to Lasix + spironolactone
-Continue to monitor respiratory status, trend BMP, I's and O's
-Trend LFTs daily and avoid hepatotoxins as able
-Continue with lactulose and Xifaxan
#E. coli bacteremia
-Suspect this is secondary to gut translocation; final culture showed E. coli; paracentesis without signs of SBP
-Infectious disease following, has since transition antibiotics to cefazolin 2 g IV every 8 hours
-Repeat blood cultures x 2 have been negative
-Plan to discharge on oral antibiotics to complete 14 days
-Continue to trend temperature curve and CBC
-Infectious disease following
#Left fibular fracture
#Acute DVT of LLE
-Currently in immobilizer, ultrasound showed acute DVT
-No imaging of leg here, will obtain x-ray of fibula
-Will consult orthopedics, nonweightbearing for now
-Patient remains on Eliquis
#T2DM
-Diet controlled, no known microvascular complications
-Glucose has been adequate on BMP
#Hypertension
-Home regimen includes atenolol
-No known history of hypertensive systemic disease
-Blood pressure currently well-controlled
#GERD
-No known history of Pandya's esophagus or erosive disease
-Home regimen includes daily PPI
#Anemia of chronic disease
-Secondary to age, above issues
-Hemoglobin stable, no signs of bleeding
#Spinal stenosis with peripheral neuritis
-Remains on home gabapentin
#Incidental adrenal mass
-No evidence of biochemical activity, hormone changes
-1.7 cm adrenal mass on the left side seen on CT
-Will need follow-up with PCP, likely repeat CT
#Rectal wall thickening
-Unclear etiology, family has stated they do not want colonoscopy
DVT prophylaxis: Eliquis
Diet: Regular
CODE STATUS: DNR
Anticipated Discharge: 24 - 48 hours
Subjective/Interval History
-
Date of Service: November 09, 2023
Seen and examined at bedside. No acute events overnight. AFVSS this morning.
She states she feels better. She does complain that she is in a leg immobilizer, agitated by it being hard to move.
She otherwise denies new acute complaints including chest pain, shortness of breath, fevers or chills, lightheadedness, GI issues, urinary issues, paresthesias or weakness, abnormal bleeding or bruising.
Objective Data
-
Labs:
Laboratory Results
11/09/23
07:23
WBC 11.6 H
Hgb 11.6 L
Hct 34.9 L
Plt Count 265
Sodium 138
Potassium 3.9
Chloride 106
Carbon Dioxide 23
BUN 35 H
Creatinine 1.2 H
Glucose 106 H
Calcium 8.5
Vital Signs:
Vital Signs
Temp Pulse Resp BP Pulse Ox
97.7 F 71 18 135/57 93
11/09/23 07:30 11/09/23 07:30 11/09/23 07:30 11/09/23 07:30 11/09/23 07:30
I&O
11/08/23 11/09/23 11/10/23
06:59 06:59 06:59
Intake Total 240 / 240 410 / 410
Balance 240 / 240 410 / 410
Review of Systems
-
History Source: Patient
All other systems: Reviewed and negative
Physical Exam
-
General: Well Nourished, No Apparent Distress and Comfortable
HEENT: Normocephalic, Atraumatic, Moist Mucous Membranes and Anicteric
Respiratory: Clear to Auscultation, Non Labored Respirations and Accessory Resp Muscle Use; Negative Wheezes, Rales or Rhonchi
Cardiac: Regular Rhythm and S1/S2; Negative Murmur, Rub, JVD or Gallop
GI: Soft, Nontender, Nondistended and Normal Bowel Sounds
Musculoskeletal: No Clubbing, No Cyanosis, No Edema and Other (Left knee immobilizer present)
Skin: Warm, Dry and Normal Turgor; Negative Rash
Neuro: AO x 3, Nonfocal/Grossly Intact and Central Nerve's Intact
Psych: Calm
Data Reviewed
-
Labs: Labs Reviewed by me and Discussed with Patient
--- NOTE | 2023-11-09 13:54 | CM ---
Chart reviewed and patient was seen by physical therapy today and patient participated, left fibular fracture, plan is for skilled placement at [facility].
Plan; Skilled placement at [facility], patient will need Auth.
[facility]
Dr. Negrete .
[2023-11-09 15:14] VITALS: BP 118/64
--- NOTE | 2023-11-09 17:36 | W.PN.ID1 ---
Date of Service
Date of Service: November 09, 2023
Today's Communication
Continue antibiotics.
Assessment / Plan
E. coli bacteremia
- suspected 2* gut translocation. No evidence of SBP on paracentesis
Pleural effusion
- s/p thoracentesis x [address] rectal [address] on [address]
Acute occlusive DVT
GERD
DM type II
HTN
Dyslipidemia
Chronic back pain
Neuropathy
Diverticulosis
Renal insufficiency
Recommendations:
Sensitivities of recovered isolate reviewed.
Continue cefazolin 2 g IV every 8 hours
Monitor white count and temperature curve. Repeat blood cultures without growth
Workup of cirrhosis ongoing by GI
Follow CXR for reaccumulation of pleural effusion.
����������������������������������������������������������
Chief Complaint
-: Leukocytosis and Bacteremia
Subjective / Review of Systems
Review of Systems: No Fever, No Chills and No Abdominal Pain
Vital Signs / Physical Exam
Vital Signs
Vital Signs
Temp Pulse Resp BP Pulse Ox
97.5 F 66 18 118/64 98
11/09/23 15:14 11/09/23 15:14 11/09/23 15:14 11/09/23 15:14 11/09/23 15:14
Physical Exam
Constitutional: No Acute Distress, Comfortable, Chronically Ill and Non-toxic
Eyes: No Conjunctival Hemorrhage and Sclera Anicteric
Cardiovascular: S1/S2; Negative S3/S4
Pulmonary: Non Labored
Gastrointestinal: Soft, Non Distended, Normal Bowel Sounds, No Rebound and No Guarding
Neurological: Awake and Alert
Psychological: Calm
Objective Data
Lab Data
Lab Results
11/09/23 07:23
11/09/23 07:23
PT 24.5 Sec (11.4-14.6) H 11/07/23 08:39
INR 2.23 11/07/23 08:39
Estimated Creat Clear 27 ml/min 11/09/23 07:23
Lactic Acid 1.5 mmol/L (0.7-2.0) 11/02/23 01:54
Total Bilirubin 0.7 mg/dl (0.2-1.3) 11/05/23 07:22
AST 31 U/L (14-36) 11/05/23 07:22
ALT 15 U/L (0-35) 11/05/23 07:22
Alkaline Phosphatase 174 U/L (38-126) H 11/05/23 07:22
Most recent labs reviewed.
Micro Results:
11/07/23 10:46 Body Fluid Culture - Preliminary
Peritoneal Fluid No Growth After 48 Hours
Gram Stain - Preliminary
11/03/23 12:50 Blood Culture - Final
Blood/Venous No Growth - Final Report
11/02/23 11:07 Body Fluid Culture - Final
Pleural Fluid No Growth After 72 Hours
Gram Stain - Final
11/01/23 18:01 Blood Culture - Final
Blood/Venous Escherichia coli
Gram Stain - Final
11/01/23 16:47 Blood Culture - Final
Blood/Venous Escherichia coli
Gram Stain - Final
11/02/23 05:13 Urine Culture - Final
Urine NO GROWTH
11/01/23 16:47 Influenza Types A & B (JAMARI) - Final
Nasal Swab Negative for Influenza A & B, NAAT
Negative results must be combined with clinical observations
and patient history.
Nucleic Acid Amplification test (NAAT)performed on the
[employer] platform.
Imaging:
11/02/2023 duplex ultrasound left lower extremity: Acute occlusive DVT in the left peroneal vein. The left common femoral, femoral, popliteal, and posterior tibial veins are patent.
11/01/2023 CT chest abdomen pelvis: A large right pleural effusion noted, causing mild right to left mediastinal shift and completely compressive atelectasis of the left lower and middle lobes. Small left pleural effusion noted. Small to moderate
volume ascites. Mild hepatic cirrhosis noted. Severe submucosal edema and wall thickening throughout the ascending colon. Severe circumferential wall thickening in the rectum. Severe diverticulosis in the descending and sigmoid colon. Please
see full dictation for additional detail. Film personally reviewed.
--- NOTE | 2023-11-09 19:03 | W.PN.UPDATE ---
Update Note
Progress Note Update
Full consult dictated. Patient seen and examined. 88 yo female with left fibula fracture with signs of healing indicating that it is a subacute fracture. Minimal tenderness on PE. Patient may be WBAT LLE and does not need to use the knee
immobilizer. Orthopedic outpatient followup as needed. Will sign off.
[2023-11-09 23:05] VITALS: BP 128/69
[2023-11-09] MEDS: LIDOCAINE 4% PATCH 1 PATCH TOPICAL (23:08)
[2023-11-10 05:16] VITALS: BMI 22.7
[2023-11-10 07:45] VITALS: BP 115/65
[2023-11-10] MEDS: BUMEX 0.5 MG PO (08:00)
[2023-11-10] MEDS: ELIQUIS 10 MG PO (08:00)
[2023-11-10] MEDS: DESENEX/MITRAZOL/ZEASORB 1 APPLIC TOPICAL ×2 (08:00→20:26)
[2023-11-10] MEDS: ULTRAM 50 MG PO (08:00)
[2023-11-10] MEDS: HYDROPHOR 1 APPLIC TOPICAL (08:00)
[2023-11-10] MEDS: PROTONIX 40 MG PO (08:00)
[2023-11-10] MEDS: TENORMIN 50 MG PO (08:00)
[2023-11-10] MEDS: XIFAXAN 550 MG PO ×2 (08:10→20:24)
[2023-11-10] MEDS: ANCEF 10 IV ×2 (08:20→15:55)
[2023-11-10 08:59] LABS: % Basophils 0.5 % (0-2); % Eosinophils 2.2 % (0-6); % Immature Granulocytes 0.9 % (0-0.5); % Lymphocytes 23.2 % (20.5-51.1); % Monocytes 9.9 % (1.7-9.3); % Neutrophils 63.3 % (42.2-75.2); Absolute Basophils 0.1 10^3/uL (0-0.2); Absolute Eosinophils 0.2 10^3/uL (0-0.7); Absolute Immature Granulocytes 0.1 10^3/uL (0-0.05); Absolute Lymphocytes 2.3 10^3/uL (1.2-3.4); Absolute Neutrophils 6.1 10^3/uL (1.4-6.5); Hematocrit 36.7 % (37.0-47.0); Hemoglobin 12.2 g/dL (12.0-16.0); Mean Corp Hgb Conc. 33.2 g/dL (33.0-37.0); Mean Corpuscular Hgb 29.4 pg (27.0-31.0); Mean Corpuscular Volume 88.4 fL (81.0-99.0); Mean Platelet Volume 10.4 fL (7.4-10.4); Nucleated Red Blood Cells % 0 %; Platelet Count 297 10^3/uL (130-400); Red Blood Cell Count 4.15 10^6/uL (4.20-5.40); Red Cell Dist. Width 16.8 % (11.5-14.5); White Blood Cell Count 9.7 10^3/uL (4.8-10.8)
--- NOTE | 2023-11-10 09:52 | W.PN.HOSP.TC ---
Today's Communication/Plan
-
Continue IV cefazolin, follow up ID recs
Repeat chest x-ray tomorrow morning
Follow-up BMP, consider transition to Lasix plus spironolactone
Assessment / Plan
Assessment / Plan
#Acute hypoxemic respiratory failure
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
#New onset cirrhosis with ascites
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
-Status post 2 L thoracentesis, transudative fluid per lights criteria, 11/02/2023
-S/p paracentesis with near 2 L fluid, SAAG >1.1, consistent with portal hypertension, no signs of SBP
-Echocardiogram with preserved LVEF, normal diastology and pulmonary pressures
-Has improved with Bumex regimen, has since been stable on room air
-Was started on lactulose and Xifaxan regimen by GI
-X-ray this morning showing
Plan
-Follow-up BMP, plan to transition Bumex to Lasix + spironolactone if renal function stable
-Continue to monitor respiratory status, trend BMP, I's and O's
-Continue with lactulose and Xifaxan; Trend LFTs daily and avoid hepatotoxins as able
-Repeat chest x-ray tomorrow morning, may need to consider Pleurx
-SpO2 goal >90%
#E. coli bacteremia
-Suspect this is secondary to gut translocation; final culture showed E. coli; paracentesis without signs of SBP
-Infectious disease following, has since transition antibiotics to cefazolin 2 g IV every 8 hours
-Repeat blood cultures x 2 have been negative
-Plan to discharge on oral antibiotics to complete 14 days
-Continue to trend temperature curve and CBC
-Infectious disease following
#Left fibular fracture
#Acute DVT of LLE
-Presented with known fracture, edema of the left lower extremity; US showed acute DVT
-Xray: Subacute horizontal, minimally displaced fracture of the proximal fibular diaphysis
-Orthopedics evaluated, WBAT, will follow-up outpatient
-Patient remains on Eliquis
#T2DM
-Diet controlled, no known microvascular complications
-Glucose has been adequate on BMP
#Hypertension
-Home regimen includes atenolol
-No known history of hypertensive systemic disease
-Blood pressure currently well-controlled
#GERD
-No known history of Pandya's esophagus or erosive disease
-Home regimen includes daily PPI
#Anemia of chronic disease
-Secondary to age, above issues
-Hemoglobin stable, no signs of bleeding
#Spinal stenosis with sciatica
-Remains on home gabapentin
#Incidental adrenal mass
-No evidence of biochemical activity, hormone changes
-1.7 cm adrenal mass on the left side seen on CT
-Will need follow-up with PCP, likely repeat CT
#Rectal wall thickening
-Unclear etiology, family has stated they do not want colonoscopy
DVT prophylaxis: Eliquis
Diet: Regular
CODE STATUS: DNR
Anticipated Discharge: 24 - 48 hours
Subjective/Interval History
-
Date of Service: November 10, 2023
Seen and examined at the bedside. No acute events overnight. AFVSS this morning
Her leukocytosis has resolved on current antibiotic course. BMP from this morning still pending. Chest x-ray shows moderate to large right pleural effusion with tracking into the fissure
She denies any acute complaints including chest pain, shortness of breath, fevers or chills, GI upset, urinary issues, abnormal bleeding or bruising, paresthesias or weakness.
Objective Data
-
Labs:
Laboratory Results
11/10/23
08:16
WBC 9.7
Hgb 12.2
Hct 36.7 L
Plt Count 297
Sodium Pending
Potassium Pending
Chloride Pending
Carbon Dioxide Pending
BUN Pending
Creatinine Pending
Glucose Pending
Calcium Pending
Total Bilirubin Pending
AST Pending
ALT Pending
Alkaline Phosphatase Pending
Vital Signs:
Vital Signs
Temp Pulse Resp BP Pulse Ox
97.5 F 66 16 115/65 97
11/10/23 07:45 11/10/23 08:00 11/10/23 07:45 11/10/23 08:00 11/10/23 07:45
I&O
11/09/23 11/10/23 11/11/23
06:59 06:59 06:59
Intake Total 410 / 410 960 / 960
Balance 410 / 410 960 / 960
Review of Systems
-
History Source: Patient
All other systems: Reviewed and negative
Physical Exam
-
General: No Apparent Distress, Comfortable and Other (Frail)
HEENT: Normocephalic, Atraumatic, Moist Mucous Membranes and Anicteric
Respiratory: Non Labored Respirations and Decreased Breath Sounds (Lower right lung meza); Negative Wheezes, Rales, Rhonchi or Accessory Resp Muscle Use
Cardiac: Regular Rhythm and S1/S2; Negative Murmur, Rub, JVD or Gallop
GI: Soft, Nontender, Nondistended and Normal Bowel Sounds
Musculoskeletal: No Clubbing, No Cyanosis and No Edema
Skin: Warm and Dry; Negative Rash or Jaundice
Neuro: AO x 3, Nonfocal/Grossly Intact and Central Nerve's Intact
Psych: Calm
Data Reviewed
-
Diagnostic Radiology: Report Reviewed by me and Discussed with Patient
Labs: Labs Reviewed by me and Discussed with Patient
[2023-11-10 10:16] LABS: ALT (SGPT) < 10 U/L (0-35); AST (SGOT) 25 U/L (14-36); Albumin 2.5 g/dl (3.5-5.0); Alkaline Phosphatase 215 U/L (38-126); Blood Urea Nitrogen 35 mg/dl (7-17); Calcium 8.6 mg/dl (8.4-10.2); Carbon Dioxide 25 mmol/L (22-30); Chloride 105 mmol/L (98-107); Direct Bilirubin 0.3 mg/dl (0.0-0.4); Estimated Creatinine Clearance 27 ml/min; Glucose 127 mg/dl (70-99); Potassium 3.6 mmol/L (3.5-5.1); Sodium 140 mmol/L (135-145); Total Bilirubin 0.4 mg/dl (0.2-1.3); Total Protein 6.6 g/dl (6.3-8.2); eGFR 43.81
[2023-11-10] MEDS: TYLENOL 650 MG PO ×2 (14:54→20:24)
[2023-11-10 15:45] VITALS: BP 134/60
--- NOTE | 2023-11-10 16:01 | W.PN.ID1 ---
Date of Service
Date of Service: November 10, 2023
Today's Communication
Transition to oral Keflex.
Assessment / Plan
E. coli bacteremia
- suspected 2* gut translocation. No evidence of SBP on paracentesis
Pleural effusion
- s/p thoracentesis x 2
Reported rectal thickening on CT.
Acute occlusive DVT
GERD
DM type II
HTN
Dyslipidemia
Chronic back pain
Neuropathy
Diverticulosis
Renal insufficiency
Recommendations:
Overall improved.
Transition to oral keflex for an additional 4 days.
����������������������������������������������������������
Chief Complaint
-: Leukocytosis and Bacteremia
Subjective / Review of Systems
Review of Systems: No Fever and No Chills
Vital Signs / Physical Exam
Vital Signs
Vital Signs
Temp Pulse Resp BP Pulse Ox
97.8 F 71 16 134/60 95
11/10/23 15:45 11/10/23 15:45 11/10/23 15:45 11/10/23 15:45 11/10/23 15:45
Physical Exam
Constitutional: No Acute Distress, Comfortable, Chronically Ill and Non-toxic
Eyes: No Conjunctival Hemorrhage and Sclera Anicteric
Cardiovascular: S1/S2; Negative S3/S4
Pulmonary: Non Labored
Gastrointestinal: Soft, Non Distended, Normal Bowel Sounds, No Rebound and No Guarding
Neurological: Awake and Alert
Psychological: Calm
Objective Data
Lab Data
Lab Results
11/10/23 08:16
11/10/23 08:16
PT 24.5 Sec (11.4-14.6) H 11/07/23 08:39
INR 2.23 11/07/23 08:39
Estimated Creat Clear 27 ml/min 11/10/23 08:16
Lactic Acid 1.5 mmol/L (0.7-2.0) 11/02/23 01:54
Total Bilirubin 0.4 mg/dl (0.2-1.3) 11/10/23 08:16
AST 25 U/L (14-36) 11/10/23 08:16
ALT < 10 U/L (0-35) 11/10/23 08:16
Alkaline Phosphatase 215 U/L (38-126) H 11/10/23 08:16
Most recent labs reviewed.
Micro Results:
11/07/23 10:46 Body Fluid Culture - Final
Peritoneal Fluid No Growth After 72 Hours
Gram Stain - Final
11/03/23 12:50 Blood Culture - Final
Blood/Venous No Growth - Final Report
11/02/23 11:07 Body Fluid Culture - Final
Pleural Fluid No Growth After 72 Hours
Gram Stain - Final
11/01/23 18:01 Blood Culture - Final
Blood/Venous Escherichia coli
Gram Stain - Final
11/01/23 16:47 Blood Culture - Final
Blood/Venous Escherichia coli
Gram Stain - Final
11/02/23 05:13 Urine Culture - Final
Urine NO GROWTH
11/01/23 16:47 Influenza Types A & B (JAMARI) - Final
Nasal Swab Negative for Influenza A & B, NAAT
Negative results must be combined with clinical observations
and patient history.
Nucleic Acid Amplification test (NAAT)performed on the
[employer] platform.
Imaging:
11/02/2023 duplex ultrasound left lower extremity: Acute occlusive DVT in the left peroneal vein. The left common femoral, femoral, popliteal, and posterior tibial veins are patent.
11/01/2023 CT chest abdomen pelvis: A large right pleural effusion noted, causing mild right to left mediastinal shift and completely compressive atelectasis of the left lower and middle lobes. Small left pleural effusion noted. Small to moderate
volume ascites. Mild hepatic cirrhosis noted. Severe submucosal edema and wall thickening throughout the ascending colon. Severe circumferential wall thickening in the rectum. Severe diverticulosis in the descending and sigmoid colon. Please
see full dictation for additional detail. Film personally reviewed.
--- NOTE | 2023-11-10 16:15 | CHAP ---
Emotional and spiritual support provided. Petrona is very frustrated because of the loss of her dentures and is struggling to find the strength and hope to face all that is ahead. Spoke about how bored she was. I brought her a devotional, a book and
a prayer blanket. We shared prayers for healing and strength. Will follow.
--- NOTE | 2023-11-10 16:39 | CM ---
parking manager spoke with physician and plan is for skilled placement when stable, piano case and bench assembler will review and send to insurance for Auth for [facility].
[facility]
Dr. Negrete .
--- NOTE | 2023-11-10 18:38 | PTCARENOTE ---
Pt received from prior Rn. She is tearful and anxious, she tells me she's tired and she wished that she was . Pt does not have a plan, she states she has felt this way in the past but has never thought to act on it. made aware. [employer]
called for emotional support. Assessment otherwise unchanged. Pt makes needs known, call mason within reach.
[2023-11-10] MEDS: LIDOCAINE 4% PATCH 1 PATCH TOPICAL (20:24)
[2023-11-10] MEDS: KEFLEX 500 MG PO (20:24)
[2023-11-10] MEDS: ELIQUIS 5 MG PO (20:24)
[2023-11-10] MEDS: ULTRAM 25 MG PO (22:35)
[2023-11-10 23:08] VITALS: BP 125/79
[2023-11-11] VITALS (7 sets, daily range): BP systolic 70–134; BP diastolic 47–96
[2023-11-11] MEDS: TYLENOL 650 MG PO ×2 (06:29→18:23)
[2023-11-11 07:30] LABS: % Basophils 0.6 % (0-2); % Eosinophils 2.4 % (0-6); % Immature Granulocytes 0.4 % (0-0.5); % Lymphocytes 28.5 % (20.5-51.1); % Neutrophils 60.1 % (42.2-75.2); Absolute Basophils 0.1 10^3/uL (0-0.2); Absolute Eosinophils 0.3 10^3/uL (0-0.7); Absolute Lymphocytes 3.1 10^3/uL (1.2-3.4); Absolute Monocytes 0.9 10^3/uL (0.1-0.6); Absolute Neutrophils 6.4 10^3/uL (1.4-6.5); Hemoglobin 12.1 g/dL (12.0-16.0); Mean Corp Hgb Conc. 32.7 g/dL (33.0-37.0); Mean Corpuscular Hgb 28.1 pg (27.0-31.0); Mean Platelet Volume 10.2 fL (7.4-10.4); Nucleated Red Blood Cells % 0 %; Platelet Count 335 10^3/uL (130-400); Red Cell Dist. Width 17.2 % (11.5-14.5); White Blood Cell Count 10.7 10^3/uL (4.8-10.8)
[2023-11-11 07:55] LABS: Blood Urea Nitrogen 37 mg/dl (7-17); Calcium 8.6 mg/dl (8.4-10.2); Carbon Dioxide 24 mmol/L (22-30); Chloride 105 mmol/L (98-107); Estimated Creatinine Clearance 30 ml/min; Glucose 119 mg/dl (70-99); Potassium 4.1 mmol/L (3.5-5.1); Sodium 141 mmol/L (135-145); eGFR 48.63
[2023-11-11] MEDS: DESENEX/MITRAZOL/ZEASORB 1 APPLIC TOPICAL ×2 (09:37→21:49)
[2023-11-11] MEDS: HYDROPHOR 1 APPLIC TOPICAL (09:37)
[2023-11-11] MEDS: PROTONIX 40 MG PO (09:39)
[2023-11-11] MEDS: LASIX 20 MG PO (09:39)
[2023-11-11] MEDS: ALDACTONE 50 MG PO (09:39)
[2023-11-11] MEDS: ELIQUIS 5 MG PO ×2 (09:39→21:56)
[2023-11-11] MEDS: KEFLEX 500 MG PO ×2 (09:39→21:56)
[2023-11-11] MEDS: XIFAXAN 550 MG PO ×2 (09:44→21:56)
[2023-11-11] MEDS: TENORMIN 50 MG PO (09:44)
--- NOTE | 2023-11-11 10:38 | W.PN.HOSP.TC ---
Addendum entered and electronically signed by Jarett Meyer DO 11/11/23 17:51:
CDI: Sepsis was present on admission and is now resolved.
Addendum entered and electronically signed by Jarett Meyer DO 11/11/23 14:08:
I attempted to call the patient's [id number] (Jacquie) on number listed in her chart. There was no answer so I left a voicemail telling her to call back for an update
Original Note:
Today's Communication/Plan
-
Consult pulm and IR for recurrent right pleural effusion
Goals of care discussion with palliative care
Continue with oral Keflex
Continue with Lasix and spironolactone
Assessment / Plan
Assessment / Plan
#Acute hypoxemic respiratory failure
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
#New onset cirrhosis with ascites
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
-Status post 2 L thoracentesis, transudative fluid per lights criteria, 11/02/2023
-S/p paracentesis with near 2 L fluid, SAAG >1.1, consistent with portal hypertension, no signs of SBP
-Echocardiogram with preserved LVEF, normal diastology and pulmonary pressures
-Has improved with Bumex regimen, has since been stable on room air
-Was started on lactulose and Xifaxan regimen by GI
-X-ray this morning showing continued interval increase to pleural effusions
Plan
-Continue Lasix 20 mg and spironolactone 50 mg, trend BMP and consider doubling doses
-Consult interventional radiology and pulm for repeat thoracentesis, possible Pleurx catheter
-Continue with lactulose and Xifaxan for newly diagnosed cirrhosis with ascites
-Goals of care discussion with palliative today
-Monitor on room air, SpO2 goal >90%
#E. coli bacteremia
-Suspect this is secondary to gut translocation; final culture showed E. coli; paracentesis without signs of SBP
-Infectious disease following, has since transition antibiotics to cefazolin 2 g IV every 8 hours
-Repeat blood cultures x 2 have been negative; has been transitioned to oral Keflex regimen
-Plan to continue Keflex to complete 10 to 14 days of antibiotic
-Infectious disease following
#Left fibular fracture
#Acute DVT of LLE
-Presented with known fracture, edema of the left lower extremity; US showed acute DVT
-Xray: Subacute horizontal, minimally displaced fracture of the proximal fibular diaphysis
-Orthopedics evaluated, WBAT, will follow-up outpatient
-Patient remains on Eliquis
#T2DM
-Diet controlled, no known microvascular complications
-Glucose has been adequate on BMP
#Hypertension
-Home regimen includes atenolol
-No known history of hypertensive systemic disease
-Blood pressure currently well-controlled
#GERD
-No known history of Pandya's esophagus or erosive disease
-Home regimen includes daily PPI
#Anemia of chronic disease
-Secondary to age, above issues
-Hemoglobin stable, no signs of bleeding
#Spinal stenosis with sciatica
-Remains on home gabapentin
#Incidental adrenal mass
-No evidence of biochemical activity, hormone changes
-1.7 cm adrenal mass on the left side seen on CT
-Will need follow-up with PCP, likely repeat CT
#Rectal wall thickening
-Unclear etiology, family has stated they do not want colonoscopy
DVT prophylaxis: Eliquis
Diet: Regular
CODE STATUS: DNR
Anticipated Discharge: 24 - 48 hours
Subjective/Interval History
-
Date of Service: November 11, 2023
Seen and examined at bedside. No acute vents overnight. AFVSS this morning on room air.
Chest x-ray this morning continues to show interval enlargement of the right pleural effusion. I have reached out to pulmonology and IR about repeat thoracentesis with fluid studies. May ultimately require Pleurx catheter. Palliative care team to
see patient today
She denies any acute complaints including chest pain, dyspnea, fevers or chills, GI upset, urinary issues, abnormal bleeding or bruising, paresthesias or weakness
Objective Data
-
Labs:
Laboratory Results
11/11/23
06:27
WBC 10.7
Hgb 12.1
Hct 37.0
Plt Count 335
Sodium 141
Potassium 4.1
Chloride 105
Carbon Dioxide 24
BUN 37 H
Creatinine 1.1 H
Glucose 119 H
Calcium 8.6
Vital Signs:
Vital Signs
Temp Pulse Resp BP Pulse Ox
97.5 F 70 18 134/96 96
11/11/23 07:30 11/11/23 07:30 11/11/23 07:30 11/11/23 07:30 11/11/23 07:30
I&O
11/10/23 11/11/23 11/12/23
06:59 06:59 06:59
Intake Total 960 / 960 120 / 120
Balance 960 / 960 120 / 120
Review of Systems
-
History Source: Patient
All other systems: Reviewed and negative
Physical Exam
-
General: No Apparent Distress, Comfortable and Appears Chronically Ill
HEENT: Normocephalic, Atraumatic, Moist Mucous Membranes and Anicteric
Respiratory: Non Labored Respirations and Decreased Breath Sounds (Lower right lung); Negative Wheezes, Rales, Rhonchi or Accessory Resp Muscle Use
Cardiac: Regular Rhythm and S1/S2; Negative Murmur, Rub, JVD or Gallop
GI: Soft, Nontender, Nondistended and Normal Bowel Sounds
Musculoskeletal: No Clubbing, No Cyanosis and No Edema
Skin: Warm, Dry and Normal Turgor; Negative Rash
Neuro: AO x 3, Nonfocal/Grossly Intact and Central Nerve's Intact
Data Reviewed
-
Diagnostic Radiology: Image personally visualized and interpreted, Report Reviewed by me and Discussed with Physician (IR, pulmonology)
Labs: Labs Reviewed by me and Discussed with Patient
--- NOTE | 2023-11-11 12:12 | CM ---
Addendum entered by Elida Brambila 11/11/23 16:33:
regional program manager received a consult for hospice, and rehabilitation caseworker with patient to review hospice options, patient has selected [facility], referral sent to [facility] and request to meet with patient.
Original Note:
Chart reviewed and patient will return to [facility] skilled when stable, patient and family are aware, patient will need Auth.
[facility]
Dr. Negrete .
Plan; Skilled placement at [facility] when stable.
[2023-11-11 12:56] LABS: Body Fluid pH 7.46
[2023-11-11 13:18] LABS: Body Fluid Mononuclear 85.6 %; Body Fluid Polymorphonuclear 14.4 %; Body Fluid WBC 76 /CUMM
[2023-11-11 13:19] LABS: Body Fluid Albumin < 1.0 g/dl; Body Fluid Glucose 159 mg/dl; Body Fluid LDH < 90 U/L; Body Fluid Protein < 2.0 g/dl; Body Fluid Triglycerides 38 mg/dl
[2023-11-11 13:20] LABS: Body Fluid Second Tech EM
--- NOTE | 2023-11-11 13:26 | CON.PUL ---
Consultation
Consultation Request
Date/Time Consultation Requested: 11/11/2023
Date/Time Consultation Performed: 11/11/2023
Requesting Provider: Dr. Meyer
Performing Provider: Dr. David Murphy
Reason for Consultation: Recurrent pleural effusion/hepatic hydrothorax
Medical History
-
History of Present Illness:
88-year-old woman with past medical history significant for hypertension, diabetes, pleural effusion, cognitive impairment who presented with hypoxia and shortness of breath. She was sent from [facility] for evaluation of shortness of breath.
Patient was found to be hypoxic and febrile in the emergency room.
She did not have any complaints on admission.
Past Medical History
Past Medical History: Other (See assessment and plan section)
Social History
Tobacco: Non-smoker
Alcohol: None
Living: [facility]
Family History
Family History: Unable to Obtain
Allergies / Home Medications
Allergies
Allergy/AdvReac Type Severity Reaction Status Date / Time
aspirin Allergy Unknown Verified 10/07/23 20:22
iodine Allergy Unknown Verified 10/07/23 20:22
Penicillins Allergy Unknown Verified 10/07/23 20:22
Home Medications
�Medication �Instructions �Recorded �Confirmed �Last Taken �Type
acetaminophen 325 mg tablet 650 mg PO Q6HPRN PRN mild 09/29/23 11/01/23 Unknown History
(Tylenol) pain/temp >100
atenolol 50 mg tablet 50 mg PO DAILY Blood Pressure 09/29/23 11/01/23 Unknown History
docusate sodium 100 mg capsule 100 mg PO Q48H constipation 09/29/23 11/01/23 Unknown History
(Colace)
ferrous sulfate 325 mg (65 mg 325 mg PO DAILY Supplement 09/29/23 11/01/23 Unknown History
iron) tablet
gabapentin 100 mg capsule 100 mg PO BID pain 09/29/23 11/01/23 Unknown History
lidocaine 4 % topical patch 1 patch topical DAILY lower back 09/29/23 11/01/23 Unknown History
melatonin 3 mg tablet 3 mg PO HS sleep 09/29/23 11/01/23 Unknown History
omeprazole 20 mg tablet,delayed 20 mg PO DAILY Gastrointestinal 09/29/23 11/01/23 Unknown History
release Issue
sennosides 8.6 mg tablet (senna) 17.2 mg PO BID constipation 09/29/23 11/01/23 Unknown History
bumetanide 0.5 mg tablet 0.5 mg PO DAILY pleural effusion 1 10/02/23 11/01/23 Unknown Rx
month #30 tabs
bisacodyl 10 mg rectal suppository 10 mg IN DAILYPRN PRN 11/01/23 11/01/23 Unknown History
(Dulcolax (bisacodyl)) constipation, mom ineffective
calcium 500 mg (as 1 tab PO BID Supplement 11/01/23 11/01/23 Unknown History
carbonate)-vitamin D3 3.125 mcg
(125 unit) tablet
cyanocobalamin (vitamin B-12) 500 1,000 mcg PO DAILY Supplement 11/01/23 11/01/23 Unknown History
mcg tablet
magnesium hydroxide 400 mg/5 mL 30 ml PO [id number] PRN day 3 no bm 11/01/23 11/01/23 Unknown History
oral suspension (Milk of Magnesia)
sodium phosphates 19 gram-7 118 ml IN DAILYPRN PRN 11/01/23 11/01/23 Unknown History
gram/118 mL enema (Fleet Enema) constipation, dulcolax ineffective
tramadol 50 mg tablet 50 mg PO Q8HPRN PRN moderate pain 11/01/23 11/01/23 Unknown History
zinc oxide 13 % topical cream 1 applic topical Q8H 11/01/23 11/01/23 Unknown History
sacrum/buttocks
Review of Systems
-
History Source: Patient
All other systems: Negative unless noted
Vitals / Labs / Diagnostic Testing
Vital Signs
Temp Pulse Resp BP Pulse Ox
97.6 F 72 16 122/54 95
11/11/23 11:30 11/11/23 12:38 11/11/23 12:38 11/11/23 12:38 11/11/23 12:25
Lab Data
11/11/23 06:27
11/11/23 06:27
Microbiology
11/07/23 10:46 Peritoneal Fluid Body Fluid Culture - Final
No Growth After 72 Hours
11/07/23 10:46 Peritoneal Fluid Gram Stain - Final
11/03/23 12:50 Blood/Venous Blood Culture - Final
No Growth - Final Report
Diagnostic Testing:
Physical Exam
-
HEENT: Normocephalic
Cardiovascular: S1/S2
GI: Soft and Distended
Neurology: Awake, Alert and No Motor Deficits
Skin: Warm
General: Comfortable
Assessment
-
88-year-old woman with past medical history noted, admitted with shortness of breath and hypoxemia.
Sent from shelter on 11/01/2023. Found to have a pleural effusion. Underwent thoracentesis on 11/07/2023, transudate. Suspected to have hepatic hydrothorax. During this hospital stay pleural effusion has recurred we were consulted on
11/11/2023 for evaluation.
Acute hypoxemic respiratory failure due to hepatic hydrothorax.
Recurrent right pleural effusion
Thoracentesis 10/04/2023: Transudate-negative malignancy
Thoracentesis 11/02/2023: Transudate-negative malignancy
Thoracentesis 11/07/2023: White blood cells 1 around 12/78% mononuclear/total protein less than 2/albumin less than 1-transudate
Thoracentesis 11/11/2023: pH 7.46/white blood cells 76/85% mononuclear/glucose 159/total protein<2/LDH<90-transudate
Likely hepatic hydrothorax
Ascites/anasarca-status post paracentesis 11/07/2023
Normal TSH
No proteinuria
Hypovolemia/cirrhosis
Hepatic cirrhosis on CAT scan-suspected secondary to BOYLE
1.7 cm left adrenal mass likely adenoma.
E. coli bacteremia: Suspected translocation
DVT: 11/02/2023 duplex ultrasound left lower extremity: Acute occlusive DVT in the left peroneal vein. The left common femoral, femoral, popliteal, and posterior tibial veins are patent.
Echocardiogram 11/07/2023: Ejection fraction 55-60%. Normal diastolic function. Normal biventricular size and function. Mild AR.
Conditions present prior admission:
Hypertension
Diabetes insipidus
Diabetes mellitus
Ascites
Right pleural effusion
Iron deficient anemia
Chronic pain due to sacral fracture
Spinal stenosis
Cognitive impairment
GERD
long-term resident
Assessment and plan:
Right hepatic hydrothorax, recurrent despite medical management of cirrhosis.
This is likely to be a recurrent process.
Status post fourth thoracentesis on the right 11/11/2023: 1400 cc of yellow fluid.
Chest x-ray post thoracentesis today 11/11/2023-showed no evidence for pneumothorax.
Minimal residual fluid at this point.
-
In cases of hepatic hydrothorax in general intrapleural catheter is not indicated due to loss of protein and risk of infection. Would do only in the setting of palliative care.
Alternatively we can perform thoracentesis only if patient is symptomatic. Currently she lives any shortness of breath
Patient states that she does not want aggressive care. She herself is saying that she is contemplating hospice.
She has a son that works at [employer]. He is not available to discuss at this point.
Continue with diuretics and management of cirrhosis.
Agree with palliative/hospice care evaluation due to advanced age.
-
Based on latest chest x-ray postthoracentesis, significant improvement with no significant residual fluid.
If patient transitioning to palliative care and there is rapid accumulation with symptoms, then intrapleural catheter can be considered.
Chest x-ray should be performed only if patient has symptoms of shortness of breath.
-
Will continue to follow along
--- NOTE | 2023-11-11 15:33 | CHAP ---
Emotional and spiritual support provided for July. She is thinking about hospice. Still struggling with the loss of her dentures and resulting diet. She is very articulate and thankful for pastoral care support and prayer. Will follow: weekend
row boss will visit.
--- NOTE | 2023-11-11 15:35 | W.PN.ID1 ---
Date of Service
Date of Service: November 11, 2023
Today's Communication
Continue current course of Keflex.
Assessment / Plan
E. coli bacteremia
- suspected 2* gut translocation. No evidence of SBP on paracentesis
Pleural effusion
- s/p thoracentesis x 2
Right hepatic hydrothorax (recurrent)
Reported rectal thickening on CT.
Acute occlusive DVT
GERD
DM type II
HTN
Dyslipidemia
Chronic back pain
Neuropathy
Diverticulosis
Renal insufficiency
Recommendations:
Continue keflex for an additional 3 days.
Chart reviewed. Given likely ongoing issues regarding right hepatic hydrothorax, patient to meet with hospice.
��������������������������������������������������������
Chief Complaint
-: Leukocytosis and Bacteremia
Subjective / Review of Systems
Review of Systems: No Fever and No Chills
Vital Signs / Physical Exam
Vital Signs
Vital Signs
Temp Pulse Resp BP Pulse Ox
97.6 F 72 16 122/54 95
11/11/23 11:30 11/11/23 12:38 11/11/23 12:38 11/11/23 12:38 11/11/23 12:25
Physical Exam
Constitutional: No Acute Distress, Comfortable, Chronically Ill and Non-toxic
Eyes: No Conjunctival Hemorrhage and Sclera Anicteric
Cardiovascular: S1/S2; Negative S3/S4
Pulmonary: Non Labored
Gastrointestinal: Soft and Non Distended
Neurological: Awake and Alert
Psychological: Calm
Objective Data
Lab Data
Lab Results
11/11/23 06:27
11/11/23 06:27
PT 24.5 Sec (11.4-14.6) H 11/07/23 08:39
INR 2.23 11/07/23 08:39
Estimated Creat Clear 30 ml/min 11/11/23 06:27
Lactic Acid 1.5 mmol/L (0.7-2.0) 11/02/23 01:54
Total Bilirubin 0.4 mg/dl (0.2-1.3) 11/10/23 08:16
AST 25 U/L (14-36) 11/10/23 08:16
ALT < 10 U/L (0-35) 11/10/23 08:16
Alkaline Phosphatase 215 U/L (38-126) H 11/10/23 08:16
Most recent labs reviewed.
Micro Results:
11/11/23 12:25 Body Fluid Culture - Pending
Pleural Fluid Gram Stain - Preliminary
11/07/23 10:46 Body Fluid Culture - Final
Peritoneal Fluid No Growth After 72 Hours
Gram Stain - Final
11/03/23 12:50 Blood Culture - Final
Blood/Venous No Growth - Final Report
11/02/23 11:07 Body Fluid Culture - Final
Pleural Fluid No Growth After 72 Hours
Gram Stain - Final
11/01/23 18:01 Blood Culture - Final
Blood/Venous Escherichia coli
Gram Stain - Final
11/01/23 16:47 Blood Culture - Final
Blood/Venous Escherichia coli
Gram Stain - Final
11/02/23 05:13 Urine Culture - Final
Urine NO GROWTH
11/01/23 16:47 Influenza Types A & B (JAMARI) - Final
Nasal Swab Negative for Influenza A & B, NAAT
Negative results must be combined with clinical observations
and patient history.
Nucleic Acid Amplification test (NAAT)performed on the
[employer] platform.
Imaging:
11/02/2023 duplex ultrasound left lower extremity: Acute occlusive DVT in the left peroneal vein. The left common femoral, femoral, popliteal, and posterior tibial veins are patent.
11/01/2023 CT chest abdomen pelvis: A large right pleural effusion noted, causing mild right to left mediastinal shift and completely compressive atelectasis of the left lower and middle lobes. Small left pleural effusion noted. Small to moderate
volume ascites. Mild hepatic cirrhosis noted. Severe submucosal edema and wall thickening throughout the ascending colon. Severe circumferential wall thickening in the rectum. Severe diverticulosis in the descending and sigmoid colon. Please
see full dictation for additional detail. Film personally reviewed.
--- NOTE | 2023-11-11 15:48 | W.CON.PAL ---
Consultation
-
Date/Time Consultation Requested: 11/10/2023
Date/Time Consultation Performed: 11/11/2023
Requesting Provider: Dr. Meyer
Performing Provider: Dr. Swann
Reason for Consult: Goals of Care Discussion
Primary Diagnosis: Recurrent Pleural Effusions, Cirrhosis
Consult Requested By: Patient's Physician
Reason for Admission
Illness Course/HPI
Petrona is a 88 y/o female with pmhx of HTN, DM, who was living independently earlier in the year, moved to [facility] after fall, over the last two months was hospitalized 09/29/23 for encephalopathy, 10/06 for fall ER visit, and 10/31 for hypoxia and
sepsis. she has been found to have recurrent right pleural effusions with ascities secondary to cirrhosis. Current hospital stay also with sepsis from pneumonia. Recent fibular fracture, now out of immobilizer, and acute peroneal DVT. Overall
significant decline in level of function in the past 3 months.
Palliative care consulted to discuss goals of care with patient.
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
She has required 3-4 thoracentesis in the past few months, and she is not sure she will be able to manage at home or keep coming back and forth to the hospital. she expresses that she is not afraid of dying, and that she would want to focus on
comfort, but would still want the thoracentesis but concerned about how she would get there and how frequently she would need it.
Discussed home hospice services, and how we could place a pleurex catheter and drain at home on hospice, but typically would not place pleurex in this scenario without the support of home hospice.
We discussed focus on comfort and what that entails
We discussed her level of needs - returning to SNF environment would not be enough support, patient would require LTC which she would be agreeable to.
Functional Status
Currently requires assistance with all cares, only recently was approved for WBAT out of knee immobilizer
Goals of Care Discussion
Patient Goals
DNR/DNI
Patient agreeable to meeting with hospice
Pain & Symptom Assessment
-
Patient reports breathing is stable at this time, recieved thoracentesis earlier today.
Objective Data
-
Objective Data:
Vital Signs
Temp Pulse Resp BP Pulse Ox
97.6 F 72 16 122/54 95
11/11/23 11:30 11/11/23 12:38 11/11/23 12:38 11/11/23 12:38 11/11/23 12:25
Laboratory Results
11/11/23 06:27
11/11/23 06:27
PT 24.5 Sec (11.4-14.6) H 11/07/23 08:39
INR 2.23 11/07/23 08:39
Hemoglobin A1c 6.7 % (4.0-5.6) H 11/02/23 05:12
Ammonia < 9 umol/L (9-30) L 11/05/23 08:29
Total Protein 6.6 g/dl (6.3-8.2) 11/10/23 08:16
Albumin 2.5 g/dl (3.5-5.0) L 11/10/23 08:16
Urine Color Yellow 11/02/23 05:13
Urine Clarity Clear (Clear) 11/02/23 05:13
Urine pH 5.0 (5.0-9.0) 11/02/23 05:13
Ur Specific [place] 1.015 (<1.030) 11/02/23 05:13
Urine Ketones Trace (Negative) A 11/02/23 05:13
Urine Bilirubin Negative (Negative) 11/02/23 05:13
Palliative Performance Scale
Palliative Performance Scale:
PPS Level Ambulation Activity & Evidence of Disease Self Care Intake Conscious Level
100% Full Normal Activity & Work; Full Intake Full
No Evidence of Disease
90% Full Normal Activity & Work; Full Normal Full
Some Evidence of Disease
80% Full Normal Activity with Effort Full Normal or Full
Some Evidence of Disease Reduced
70% Reduced Unable Normal Job/Work Full Normal or Full
Significant Disease Reduced
60% Reduced Unable Hobby/Housework Occasional Normal or Full or Confusion
Significant Disease Assistance Reduced
50% Mainly Sit/Lie Unable to do Any Work Considerable Normal or Full or Confusion
Extensive Disease Assistance Req'd Reduced
40% Mainly in Bed Unable to do Most Activity Mainly Assistance Normal or Full or Drowsy;
Extensive Disease Reduced +/- Confusion
30% Totally Bed Unable to do Any Activity Total Care Normal or Full or Drowsy;
Bound Extensive Disease Reduced +/- Confusion
20% Totally Bed Bound Unable to do Any Activity Total Care Minimal to Full or Drowsy;
Extensive Disease Sips +/- Confusion
10% Totally Bed Bound Unable to do Any Activity Total Care Mouth Care Drowsy or Coma;
Extensive Disease Only +/- Confusion
0%
PPS Score Level:
Palliative Performance Score Response
Palliative Performance Score Response: 40%
Physical Exam
-
General: Well Developed and No Apparent Distress
Psych: Calm and Intact Judgement/Insight
Assessment / Plan
-
Assessment/Plan:
Plan:
Patient agreeable to meeting with hospice
Pleurex catheter should be placed prior to discharge for home symptom management of recurrent pleural effusions
--- NOTE | 2023-11-11 15:52 | PN.CDI ---
CDI
- -
CDI:
Physician Documentation Request
Admit Date: 11/01/23 19:48
Dear Doctor Mitch,
Please review the following and provide your response in the progress notes.
Clinical Indicators:
Documentation in the record on 11/07 includes the diagnosis of sepsis. The following clinical information was noted in the record:
- 11/07 PN 'Sepsis with E. coli bacteremia...Likely secondary to GI translocation'
- 11/08 PN 'E. coli bacteremia...Suspect this is secondary to gut translocation'
- On admission: WBC 16.7, T Max 103.2, HR 100's. RR 20-30s
- IV abx Cefepims, Vancomycin
Please clarify the following:
____ - Sepsis was present on admission and is now resolved.
____ - Sepsis was present on admission and is still being monitored, evaluated or treated
____ - Sepsis was ruled out
____ - Sepsis is still a likely, suspected, probable diagnosis
____ - Other
Use of terms such as suspected, likely, concern for, or probable (associated with a specific diagnosis that is being evaluated, monitored, or treated as if it exists) are acceptable and can be coded in the inpatient setting, when documented at the
time of discharge.
Thank you,
Brooks Harper RN
CDI Specialist
Please use your independent medical judgment in providing your response.
--- NOTE | 2023-11-11 16:56 | HOSPNOTE ---
Referral received. Pat spoke to attending who stated that we are to wait until Tuesday to discuss hospice with patient. Patient has a lot of decisions to make. We will follow and be available and will plan to discuss hospice with the patient on
Tuesday as instructed by attending.
[2023-11-11] MEDS: LIDOCAINE 4% PATCH 1 PATCH TOPICAL (21:53)
[2023-11-12 06:00] VITALS: BMI 23.1
[2023-11-12 07:04] LABS: % Basophils 0.8 % (0-2); % Eosinophils 3.6 % (0-6); % Immature Granulocytes 0.8 % (0-0.5); % Lymphocytes 29.4 % (20.5-51.1); % Monocytes 8.5 % (1.7-9.3); % Neutrophils 56.9 % (42.2-75.2); Absolute Basophils 0.1 10^3/uL (0-0.2); Absolute Eosinophils 0.4 10^3/uL (0-0.7); Absolute Immature Granulocytes 0.1 10^3/uL (0-0.05); Absolute Lymphocytes 3.1 10^3/uL (1.2-3.4); Absolute Monocytes 0.9 10^3/uL (0.1-0.6); Absolute Neutrophils 5.9 10^3/uL (1.4-6.5); Hematocrit 33.6 % (37.0-47.0); Hemoglobin 11.3 g/dL (12.0-16.0); Mean Corp Hgb Conc. 33.6 g/dL (33.0-37.0); Mean Corpuscular Hgb 27.9 pg (27.0-31.0); Nucleated Red Blood Cells % 0 %; Platelet Count 318 10^3/uL (130-400); Red Blood Cell Count 4.05 10^6/uL (4.20-5.40); Red Cell Dist. Width 16.9 % (11.5-14.5); White Blood Cell Count 10.4 10^3/uL (4.8-10.8)
[2023-11-12 07:54] VITALS: BP 133/63
[2023-11-12] MEDS: TYLENOL 650 MG PO (09:21)
[2023-11-12] MEDS: ALDACTONE 50 MG PO (09:22)
[2023-11-12] MEDS: KEFLEX 500 MG PO ×2 (09:22→20:05)
[2023-11-12] MEDS: PROTONIX 40 MG PO (09:22)
[2023-11-12] MEDS: XIFAXAN 550 MG PO ×2 (09:23→20:07)
[2023-11-12] MEDS: ELIQUIS 5 MG PO ×2 (09:23→20:05)
[2023-11-12] MEDS: LASIX 20 MG PO (09:23)
[2023-11-12] MEDS: TENORMIN 50 MG PO (09:23)
[2023-11-12] MEDS: DESENEX/MITRAZOL/ZEASORB 1 APPLIC TOPICAL ×2 (09:24→20:09)
[2023-11-12] MEDS: HYDROPHOR 1 APPLIC TOPICAL (09:24)
--- NOTE | 2023-11-12 10:06 | W.PN.HOSP.TC ---
Today's Communication/Plan
-
Follow-up BMP and consider increasing Lasix to 40 mg and spironolactone 100 mg
Repeat chest x-ray tomorrow
Further discussions with hospice on Tuesday
Consider Pleurx catheter before discharge
Assessment / Plan
Assessment / Plan
#Recurrent right pleural effusion/hepatic hydrothorax
#New onset cirrhosis with ascites
#Acute hypoxemic respiratory insufficiency (now resolved)
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
-Status post paracentesis, multiple thoracentesis with transudative findings all consistent with hepatic etiology
-Echocardiogram with preserved LVEF, normal diastology and pulmonary pressures, no concern for cardiac cause at this time
-Was started on lactulose and Xifaxan regimen by GI; has since been titrated down to room
-Status post thoracentesis again on 11/10
Plan
-Continue Lasix 20 mg and spironolactone 50 mg, trend BMP and consider doubling doses
-Will consider Pleurx catheter placement if signing onto hospice care
-Continue with lactulose and Xifaxan for newly diagnosed cirrhosis with ascites
-Plan to repeat chest x-ray tomorrow morning
-Monitor on room air, SpO2 goal >90%
#E. coli bacteremia
-Suspect this is secondary to gut translocation; final culture showed E. coli; paracentesis without signs of SBP
-Infectious disease following, has since transition antibiotics to cefazolin 2 g IV every 8 hours
-Repeat blood cultures x 2 have been negative; has been transitioned to oral Keflex regimen
-Plan to continue Keflex to complete 10 to 14 days of antibiotic, plan last day on 11/13
-Infectious disease following
#Left fibular fracture
#Acute DVT of LLE
-Presented with known fracture, edema of the left lower extremity; US showed acute DVT
-Xray: Subacute horizontal, minimally displaced fracture of the proximal fibular diaphysis
-Orthopedics evaluated, WBAT, will follow-up outpatient
-Patient remains on Eliquis
#T2DM
-Diet controlled, no known microvascular complications
-Glucose has been adequate on BMP
#Hypertension
-Home regimen includes atenolol
-No known history of hypertensive systemic disease
-Blood pressure currently well-controlled
#GERD
-No known history of Pandya's esophagus or erosive disease
-Home regimen includes daily PPI
#Anemia of chronic disease
-Secondary to age, above issues
-Hemoglobin stable, no signs of bleeding
#Spinal stenosis with sciatica
-Remains on home gabapentin
#Incidental adrenal mass
-No evidence of biochemical activity, hormone changes
-1.7 cm adrenal mass on the left side seen on CT
-Will need follow-up with PCP, likely repeat CT
#Rectal wall thickening
-Unclear etiology, family has stated they do not want colonoscopy
DVT prophylaxis: Eliquis
Diet: Regular
CODE STATUS: DNR
Anticipated Discharge: > 48 hours
Subjective/Interval History
-
Date of Service: November 12, 2023
Seen and examined bedside. No acute events overnight. AFVSS this morning.
She had thoracentesis performed yesterday, feels well today and does not complain of any pain or shortness of breath. States that she would like to move forward with hospice, is worried about how her children will react though she states it is 'her
decision'
She denies chest pain, shortness of breath, fevers or chills, GI complaints, urinary issues, bleeding or bruising, paresthesias or weakness
Objective Data
-
Labs:
Laboratory Results
11/12/23 11/12/23
06 09:44
WBC 10.4
Hgb 11.3 L
Hct 33.6 L
Plt Count 318
Sodium Cancelled Pending
Potassium Cancelled Pending
Chloride Cancelled Pending
Carbon Dioxide Cancelled Pending
BUN Cancelled Pending
Creatinine Cancelled Pending
Glucose Cancelled Pending
Calcium Cancelled Pending
Vital Signs:
Vital Signs
Temp Pulse Resp BP Pulse Ox
98 F 64 16 133/63 95
11/12/23 07:54 11/12/23 07:54 11/12/23 07:54 11/12/23 07:54 11/12/23 07:54
I&O
11/11/23 11/12/23 11/13/23
06:59 06:59 06:59
Intake Total 120 / 120 900 / 900
Balance 120 / 120 900 / 900
Review of Systems
-
History Source: Patient
All other systems: Reviewed and negative
Physical Exam
-
General: Well Nourished, No Apparent Distress, Comfortable and Other (Frail female)
HEENT: Normocephalic, Atraumatic, Moist Mucous Membranes and Anicteric
Respiratory: Clear to Auscultation and Non Labored Respirations; Negative Wheezes, Rales or Rhonchi
Cardiac: Regular Rhythm and S1/S2; Negative Murmur, Rub or Gallop
GI: Soft, Nontender, Nondistended and Normal Bowel Sounds
Musculoskeletal: No Clubbing, No Cyanosis and No Edema
Skin: Warm, Dry and Normal Turgor; Negative Rash or Jaundice
Neuro: AO x 3, Nonfocal/Grossly Intact and Central Nerve's Intact
Psych: Calm
Data Reviewed
-
Labs: Labs Reviewed by me and Discussed with Patient
[2023-11-12 10:32] LABS: Blood Urea Nitrogen 38 mg/dl (7-17); Calcium 8.3 mg/dl (8.4-10.2); Carbon Dioxide 23 mmol/L (22-30); Chloride 104 mmol/L (98-107); Estimated Creatinine Clearance 25 ml/min; Glucose 225 mg/dl (70-99); Potassium 3.5 mmol/L (3.5-5.1); Sodium 139 mmol/L (135-145)
[2023-11-12] MEDS: ULTRAM 25 MG PO ×2 (10:34→20:11)
--- NOTE | 2023-11-12 12:43 | W.PN.PUL3 ---
Today's Communication / Plan
-
Patient in agreement with hospice, consult placed for CM
Patient is DNR
Can hold off on further intervention unless symptoms change, she is stable on RA/not symptomatic
Continue supportive care
Assessment
-
88-year-old woman with past medical history noted, admitted with shortness of breath and hypoxemia. [facility] from jail on 11[place]01/2023. Found to have a pleural effusion. Underwent thoracentesis on 11/07/2023, transudate. Suspected to have hepatic
hydrothorax. During this hospital stay pleural effusion has recurred we were consulted on 11/11/2023 for evaluation.
Acute hypoxemic respiratory failure due to hepatic hydrothorax.
Recurrent right pleural effusion
Thoracentesis 10/04/2023: Transudate-negative malignancy
Thoracentesis 11/02/2023: Transudate-negative malignancy
Thoracentesis 11/07/2023: White blood cells 1 around 12/78% mononuclear/total protein less than 2/albumin less than 1-transudate
Thoracentesis 11/11/2023: pH 7.46/white blood cells 76/85% mononuclear/glucose 159/total protein<2/LDH<90-transudate
Likely hepatic hydrothorax
Ascites/anasarca-status post paracentesis 11/07/2023
Normal TSH
No proteinuria
Hypovolemia/cirrhosis
Hepatic cirrhosis on CAT scan-suspected secondary to BOYLE
1.7 cm left adrenal mass likely adenoma.
E. coli bacteremia: Suspected translocation
LLE DVT
Conditions present prior admission:
Hypertension
Diabetes insipidus
Diabetes mellitus
Ascites
Right pleural effusion
Iron deficient anemia
Chronic pain due to sacral fracture
Spinal stenosis
Cognitive impairment
GERD
jail resident
Plan
Currently on RA, not in distress
Comfortable appearance
Denies SOB/orthopnea
Right hepatic hydrothorax, recurrent despite medical management of cirrhosis.
This is likely to be a recurrent process.
Status post fourth thoracentesis on the right 11/11/2023: 1400 cc of yellow fluid.
Chest x-ray post thoracentesis today 11/11/2023-showed no evidence for pneumothorax.
Minimal residual fluid at this point.
Would re-image when needed
In cases of hepatic hydrothorax in general intrapleural catheter is not indicated due to loss of protein and risk of infection. Would do only in the setting of palliative care.
Alternatively we can perform thoracentesis only if patient is symptomatic. Currently she lives any shortness of breath
Patient states that she does not want aggressive care. She herself is saying that she is contemplating hospice.
She has a son that works at [employer]. He is not available to discuss at this point.
Continue with diuretics and management of cirrhosis.
Agree with palliative/hospice care evaluation due to advanced age.
Consult placed with CM
Based on latest chest x-ray post-thoracentesis, significant improvement with no significant residual fluid.
If patient transitioning to palliative care and there is rapid accumulation with symptoms, then intrapleural catheter can be considered.
Chest x-ray should be performed only if patient has symptoms of shortness of breath.
Will continue to follow along
Diagnostic Data
Chest X-Ray: 11/11/23- Status post right thoracentesis with no evidence for pneumothorax.
CT Scan:
11/02/2023 duplex ultrasound left lower extremity: Acute occlusive DVT in the left peroneal vein. The left common femoral, femoral, popliteal, and posterior tibial veins are patent.
Echo: Echocardiogram 11/07/2023: Ejection fraction 55-60%. Normal diastolic function. Normal biventricular size and function. Mild AR.
PFT's:
Reports and relevant images were personally reviewed.
Subjective Data
-
Date of Service:
Date of Service: November 12, 2023
Chief Complaint: Pulmonary Follow Up
Subjective:
No new events, stable on RA
No new complaints
Awaiting hospice discussions
Objective Data
Data Reviewed
Vital Signs / I&O / Oxygen:
Vital Signs
Temp Pulse Resp BP Pulse Ox
98 F 64 16 133/63 95
11/12/23 07:54 11/12/23 07:54 11/12/23 07:54 11/12/23 07:54 11/12/23 07:54
Intake and Output
11/11/23 11/12/23 11/13/23
06:59 06:59 06:59
Intake Total 120 / 120 900 / 900
Balance 120 / 120 900 / 900
SaO2 95
Nasal Cannula flow liters per 3
minute
Physical Exam
General: Comfortable and Other (NAD)
HEENT: Normocephalic, Anicteric and Moist Mucous Membranes
Cardiovascular: S1-S2 and Regular Rhythm
Respiratory: Clear and Non-Labored Respirations
GI: Soft, Distended and Non Tender
Neurology: Awake, Alert, Oriented and No Motor Deficits
Skin: Warm, Dry and Good Color
Labs/Micro/Reports
Lab Data
11/12/23 06:24
11/12/23 09:44
Microbiology
11/11/23 12:25 Pleural Fluid Body Fluid Culture - Preliminary
No Growth After 18-24 Hours
11/11/23 12:25 Pleural Fluid Gram Stain - Preliminary
11/07/23 10:46 Peritoneal Fluid Body Fluid Culture - Final
No Growth After 72 Hours
11/07/23 10:46 Peritoneal Fluid Gram Stain - Final
[2023-11-12 15:00] VITALS: BP 124/58
[2023-11-12] MEDS: LIDOCAINE 4% PATCH TOPICAL (21:17)
[2023-11-12 23:10] VITALS: BP 139/65
[2023-11-13 06:00] VITALS: BMI 22.2
[2023-11-13 07:57] VITALS: BP 133/68
[2023-11-13 08:24] LABS: Blood Urea Nitrogen 40 mg/dl (7-17); Calcium 8.4 mg/dl (8.4-10.2); Carbon Dioxide 24 mmol/L (22-30); Chloride 106 mmol/L (98-107); Estimated Creatinine Clearance 27 ml/min; Glucose 135 mg/dl (70-99); Potassium 3.8 mmol/L (3.5-5.1); Sodium 140 mmol/L (135-145); eGFR 43.81
[2023-11-13] MEDS: LASIX 20 MG PO (08:24)
[2023-11-13] MEDS: TENORMIN 50 MG PO (08:24)
[2023-11-13] MEDS: ELIQUIS 5 MG PO ×2 (08:24→21:42)
[2023-11-13] MEDS: PROTONIX 40 MG PO (08:24)
[2023-11-13] MEDS: ALDACTONE 50 MG PO (08:24)
[2023-11-13] MEDS: XIFAXAN 550 MG PO ×2 (08:25→21:42)
[2023-11-13] MEDS: KEFLEX 500 MG PO ×2 (08:25→21:42)
[2023-11-13] MEDS: HYDROPHOR 1 APPLIC TOPICAL (08:30)
[2023-11-13] MEDS: DESENEX/MITRAZOL/ZEASORB 1 APPLIC TOPICAL ×2 (08:30→21:42)
--- NOTE | 2023-11-13 10:05 | CM ---
Chart reviewed and case discussed with Dr. Meyer. Provided son's phone number, as Dr. Meyer has not been able to reach Petrona's daughter via telephone.
Petrona is a SNF resident at [facility]; If hospice care is chosen with plan to return to [place], the cost of room and board would not be covered by insurance.
[facility]osp[facility] is following with plan to discuss with patient on Tuesday per attending.
CM will continue to follow.
[2023-11-13 10:36] LABS: % Basophils 0.7 % (0-2); % Eosinophils 3.6 % (0-6); % Immature Granulocytes 0.4 % (0-0.5); % Lymphocytes 28.4 % (20.5-51.1); % Monocytes 7.7 % (1.7-9.3); % Neutrophils 59.2 % (42.2-75.2); Absolute Basophils 0.1 10^3/uL (0-0.2); Absolute Eosinophils 0.4 10^3/uL (0-0.7); Absolute Lymphocytes 2.9 10^3/uL (1.2-3.4); Absolute Monocytes 0.8 10^3/uL (0.1-0.6); Hematocrit 34.7 % (37.0-47.0); Hemoglobin 11.2 g/dL (12.0-16.0); Mean Corp Hgb Conc. 32.3 g/dL (33.0-37.0); Mean Corpuscular Hgb 27.8 pg (27.0-31.0); Mean Corpuscular Volume 86.1 fL (81.0-99.0); Mean Platelet Volume 10.4 fL (7.4-10.4); Nucleated Red Blood Cells % 0 %; Platelet Count 344 10^3/uL (130-400); Red Blood Cell Count 4.03 10^6/uL (4.20-5.40); Red Cell Dist. Width 17.4 % (11.5-14.5); White Blood Cell Count 10.1 10^3/uL (4.8-10.8)
--- NOTE | 2023-11-13 11:42 | W.PN.HOSP.TC ---
Addendum entered and electronically signed by Jarett Meyer DO 11/13/23 16:38:
I called the patient's son, Mir, however there was no answer. Left a voicemail telling him to call back if there are any questions. His phone number is [phone]
Original Note:
Today's Communication/Plan
-
Monitor clinically
Patient to meet with hospice tomorrow
Assessment / Plan
Assessment / Plan
#Recurrent right pleural effusion/hepatic hydrothorax
#New onset cirrhosis with ascites
#Acute hypoxemic respiratory insufficiency (now resolved)
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
-Status post paracentesis, multiple thoracentesis with transudative findings all consistent with hepatic etiology
-Echocardiogram with preserved LVEF, normal diastology and pulmonary pressures, no concern for cardiac cause at this time
-Was started on lactulose and Xifaxan regimen by GI; has since been titrated down to room
-Status post thoracentesis again on 11/10, x-ray this morning shows reaccumulation
Plan
-Continue Lasix 20 mg and spironolactone 50 mg, trend BMP
-Will consider Pleurx catheter placement if signing onto hospice care
-Continue with lactulose and Xifaxan for newly diagnosed cirrhosis with ascites
-Defer further imaging as she is pursuing hospice
-Monitor on room air, SpO2 goal >90%
#E. coli bacteremia
-Suspect this is secondary to gut translocation; final culture showed E. coli; paracentesis without signs of SBP
-Infectious disease following, has since transition antibiotics to cefazolin 2 g IV every 8 hours
-Repeat blood cultures x 2 have been negative; has been transitioned to oral Keflex regimen
-Plan to continue Keflex to complete 10 to 14 days of antibiotic, plan last day on 11/13
-Infectious disease following
#Left fibular fracture
#Acute DVT of LLE
-Presented with known fracture, edema of the left lower extremity; US showed acute DVT
-Xray: Subacute horizontal, minimally displaced fracture of the proximal fibular diaphysis
-Orthopedics evaluated, WBAT, will follow-up outpatient
-Patient remains on Eliquis
#T2DM
-Diet controlled, no known microvascular complications
-Glucose has been adequate on BMP
#Hypertension
-Home regimen includes atenolol
-No known history of hypertensive systemic disease
-Blood pressure currently well-controlled
#GERD
-No known history of Pandya's esophagus or erosive disease
-Home regimen includes daily PPI
#Anemia of chronic disease
-Secondary to age, above issues
-Hemoglobin stable, no signs of bleeding
#Spinal stenosis with sciatica
-Remains on home gabapentin
#Incidental adrenal mass
-No evidence of biochemical activity, hormone changes
-1.7 cm adrenal mass on the left side seen on CT
-Will need follow-up with PCP, likely repeat CT
#Rectal wall thickening
-Unclear etiology, family has stated they do not want colonoscopy
DVT prophylaxis: Eliquis
Diet: Regular
CODE STATUS: DNR
Disposition: Will meet with hospice tomorrow, likely home hospice
Plan to update her son Mir today. Phone number [phone]
Anticipated Discharge: 24 - 48 hours
Subjective/Interval History
-
Date of Service: November 13, 2023
Seen and examined at bedside. No acute events overnight. AFVSS this morning.
Chest x-ray from today shows recurrence of effusion on the right. Planning to meet with hospice tomorrow, will defer further imaging unless symptomatic
She denies any acute complaints. Denies chest pain, shortness of breath, fevers or chills, GI upset, urinary issues, abnormal bleeding or bruising, paresthesias or weakness
Objective Data
-
Labs:
Laboratory Results
10/06/24
07:40
WBC 10.1
Hgb 11.2 L
Hct 34.7 L
Plt Count 344
Sodium 140
Potassium 3.8
Chloride 106
Carbon Dioxide 24
BUN 40 H
Creatinine 1.2 H
Glucose 135 H
Calcium 8.4
Vital Signs:
Vital Signs
Temp Pulse Resp BP Pulse Ox
97 F 71 16 133/68 95
11/13/23 07:57 11/13/23 07:57 11/13/23 07:57 11/13/23 07:57 11/13/23 07:57
I&O
11/12/23 11/13/23 11/14/23
06:59 06:59 06:59
Intake Total 900 / 900 920 / 920
Balance 900 / 900 920 / 920
Review of Systems
-
History Source: Patient
All other systems: Reviewed and negative
Physical Exam
-
General: Comfortable and Other (Frail female); Negative Respiratory Distress
HEENT: Normocephalic, Atraumatic, Moist Mucous Membranes and Anicteric
Respiratory: Non Labored Respirations and Decreased Breath Sounds (Right lung base); Negative Wheezes, Rales, Rhonchi or Accessory Resp Muscle Use
Cardiac: Regular Rhythm and S1/S2; Negative Murmur, Rub or Gallop
GI: Soft, Nontender, Nondistended and Normal Bowel Sounds
Musculoskeletal: No Clubbing, No Cyanosis and No Edema
Skin: Warm and Dry; Negative Rash
Neuro: AO x 3, Nonfocal/Grossly Intact and Central Nerve's Intact
Psych: Calm
Data Reviewed
-
Diagnostic Radiology: Image personally visualized and interpreted, Discussed with Nurse and Discussed with Patient
Labs: Labs Reviewed by me and Discussed with Patient
--- NOTE | 2023-11-13 13:46 | W.PN.PUL3 ---
Today's Communication / Plan
-
CXR showing reaccumulation but will hold off on ASEPT pending discussions
Hospice discussions per team, CM aware
Will follow up decision making
Assessment
-
88-year-old woman with past medical history noted, admitted with shortness of breath and hypoxemia. [facility]. Found to have a pleural effusion. Underwent thoracentesis on 11/07/2023, transudate. Suspected to have hepatic
hydrothorax. During this hospital stay pleural effusion has recurred we were consulted on 11/11/2023 for evaluation.
Acute hypoxemic respiratory failure due to hepatic hydrothorax.
Recurrent right pleural effusion
Thoracentesis 10/04/2023: Transudate-negative malignancy
Thoracentesis 11/02/2023: Transudate-negative malignancy
Thoracentesis 11/07/2023: White blood cells 1 around 12/78% mononuclear/total protein less than 2/albumin less than 1-transudate
Thoracentesis 11/11/2023: pH 7.46/white blood cells 76/85% mononuclear/glucose 159/total protein<2/LDH<90-transudate
Likely hepatic hydrothorax
Ascites/anasarca-status post paracentesis 11/07/2023
Normal TSH
No proteinuria
Hypovolemia/cirrhosis
Hepatic cirrhosis on CAT scan-suspected secondary to BOYLE
1.7 cm left adrenal mass likely adenoma.
E. coli bacteremia: Suspected translocation
LLE DVT
Conditions present prior admission:
Hypertension
Diabetes insipidus
Diabetes mellitus
Ascites
Right pleural effusion
Iron deficient anemia
Chronic pain due to sacral fracture
Spinal stenosis
Cognitive impairment
GERD
care home resident
Plan
Currently on RA, not in distress
Comfortable appearance
Denies SOB/orthopnea
Right hepatic hydrothorax, recurrent despite medical management of cirrhosis.
This is likely to be a recurrent process.
Status post fourth thoracentesis on the right 11/11/2023: 1400 cc of yellow fluid.
Chest x-ray post thoracentesis today 11/11/2023-showed no evidence for pneumothorax.
Minimal residual fluid at this point.
CXR this AM showing reaccumulation, can consider ASEPT placement following hospice discussions
In cases of hepatic hydrothorax in general intrapleural catheter is not indicated due to loss of protein and risk of infection. Would do only in the setting of palliative care.
Alternatively we can perform thoracentesis only if patient is symptomatic. Currently she lives any shortness of breath
Patient states that she does not want aggressive care. She herself is saying that she is contemplating hospice.
She has a son that works at [employer]. He is not available to discuss at this point.
Continue with diuretics and management of cirrhosis.
Agree with palliative/hospice care evaluation due to advanced age.
Consult placed with CM
Based on latest chest x-ray post-thoracentesis, significant improvement with no significant residual fluid.
If patient transitioning to palliative care and there is rapid accumulation with symptoms, then intrapleural catheter can be considered.
Chest x-ray should be performed only if patient has symptoms of shortness of breath.
Will continue to follow along
Diagnostic Data
Chest X-Ray: 11/11/23- Status post right thoracentesis with no evidence for pneumothorax.
CT Scan:
11/02/2023 duplex ultrasound left lower extremity: Acute occlusive DVT in the left peroneal vein. The left common femoral, femoral, popliteal, and posterior tibial veins are patent.
Echo: Echocardiogram 11/07/2023: Ejection fraction 55-60%. Normal diastolic function. Normal biventricular size and function. Mild AR.
PFT's:
Reports and relevant images were personally reviewed.
-----
Total time spent on this encounter __35__ includes review of history, physical exam, medications, laboratory data, personal review of imaging, extensive review of outpatient records, discussion with care team and respiratory therapy.
Subjective Data
-
Date of Service:
Date of Service: November 13, 2023
Chief Complaint: Pulmonary Follow Up
Subjective:
No events ON, stable on RA
Objective Data
Data Reviewed
Vital Signs / I&O / Oxygen:
Vital Signs
Temp Pulse Resp BP Pulse Ox
97 F 71 16 133/68 95
11/13/23 07:57 11/13/23 07:57 11/13/23 07:57 11/13/23 07:57 11/13/23 07:57
Intake and Output
11/12/23 11/13/23 11/14/23
06:59 06:59 06:59
Intake Total 900 / 900 920 / 920
Balance 900 / 900 920 / 920
SaO2 95
Nasal Cannula flow liters per 3
minute
Physical Exam
General: Comfortable and Other (NAD)
HEENT: Normocephalic, Anicteric and Moist Mucous Membranes
Cardiovascular: S1-S2 and Regular Rhythm
Respiratory: Clear and Non-Labored Respirations
GI: Soft, Distended and Non Tender
Neurology: Awake, Alert, Oriented and No Motor Deficits
Skin: Warm, Dry and Good Color
Labs/Micro/Reports
Lab Data
11/13/23 07:40
11/13/23 07:40
Microbiology
11/11/23 12:25 Pleural Fluid Body Fluid Culture - Preliminary
No Growth After 48 Hours
11/11/23 12:25 Pleural Fluid Gram Stain - Preliminary
--- NOTE | 2023-11-13 15:40 | CHAP ---
Petrona shared her wish for Hospice care - her thoughts and feelings. Emotional and spiritual support provided. Assurance of our on-going availability given.
[2023-11-13 15:59] VITALS: BP 146/69
[2023-11-13] MEDS: ULTRAM 25 MG PO (21:42)
[2023-11-13] MEDS: LIDOCAINE 4% PATCH TOPICAL (21:43)
[2023-11-13 23:05] VITALS: BP 134/69
[2023-11-14 05:16] VITALS: BMI 22.2
[2023-11-14 08:01] VITALS: BP 113/69
[2023-11-14] MEDS: ELIQUIS 5 MG PO ×2 (08:02→20:19)
[2023-11-14] MEDS: XIFAXAN 550 MG PO (08:03)
[2023-11-14] MEDS: LASIX 20 MG PO (08:03)
[2023-11-14] MEDS: KEFLEX 500 MG PO ×2 (08:03→20:19)
[2023-11-14] MEDS: DESENEX/MITRAZOL/ZEASORB 1 APPLIC TOPICAL ×2 (08:03→20:34)
[2023-11-14] MEDS: TENORMIN 50 MG PO (08:03)
[2023-11-14] MEDS: PROTONIX 40 MG PO (08:03)
[2023-11-14] MEDS: ALDACTONE 50 MG PO (08:03)
[2023-11-14] MEDS: HYDROPHOR 1 APPLIC TOPICAL (08:16)
--- NOTE | 2023-11-14 09:47 | W.PN.PUL.V3 ---
Today's Communication / Plan
-
.
Comfort a priority.
Oxygen as needed.
Antibiotics per infectious disease.
Pleurx catheter if palliation/hospice candidate for comfort-can contact interventional radiology if needed.
Pulmonary will sign off-please call with questions
Assessment
-
88-year-old woman with past medical history noted, admitted with shortness of breath and hypoxemia. [facility]. Found to have a pleural effusion. Underwent thoracentesis on 11/07/2023, transudate. Suspected to have hepatic
hydrothorax. During this hospital stay pleural effusion has recurred we were consulted on 11/11/2023 for evaluation.
Acute hypoxemic respiratory failure due to hepatic hydrothorax.
Recurrent right pleural effusion
Thoracentesis 10/04/2023: Transudate-negative malignancy
Thoracentesis 11/02/2023: Transudate-negative malignancy
Thoracentesis 11/07/2023: White blood cells 1 around 12/78% mononuclear/total protein less than 2/albumin less than 1-transudate
Thoracentesis 11/11/2023: pH 7.46/white blood cells 76/85% mononuclear/glucose 159/total protein<2/LDH<90-transudate
Likely hepatic hydrothorax
Ascites/anasarca-status post paracentesis 11/07/2023
Normal TSH
No proteinuria
Hypovolemia/cirrhosis
Hepatic cirrhosis on CAT scan-suspected secondary to BOYLE
1.7 cm left adrenal mass likely adenoma.
E. coli bacteremia: Suspected translocation
LLE DVT
Conditions present prior admission:
Hypertension
Diabetes insipidus
Diabetes mellitus
Ascites
Right pleural effusion
Iron deficient anemia
Chronic pain due to sacral fracture
Spinal stenosis
Cognitive impairment
GERD
penitentiary resident
Plan
The patient is stable from a pulmonary perspective-no distress.
Continue supplemental oxygen if needed-currently on room air.
The patient has recurrent right hepatic hydrothorax, recurrent despite medical management of cirrhosis.
This is likely to be a recurrent process
Status post fourth thoracentesis on the right 11/11/2023: 1400 cc of yellow fluid.
Chest x-ray post thoracentesis 11/11/2023-showed no evidence for pneumothorax.
Minimal residual fluid at this point.
CXR 11/13/23 with moderate right pleural fluid reaccumulation- can consider ASEPT placement following hospice discussions
In cases of hepatic hydrothorax in general intrapleural catheter is not indicated due to loss of protein and risk of infection-we could do only in the setting of palliative care.
Alternatively we can perform thoracentesis only if patient is symptomatic. Currently she denies shortness of breath
Patient states that she does not want aggressive care.
Hospice discussions ongoing.
Continue diuretics as tolerated..
Antibiotics per infectious disease
Case management following .
Palliative/hospice care of dilation ongoing
DVT prophylaxis-on Eliquis
GI prophylaxis-on pantoprazole.
Nutrition with aspiration precautions.
From a palliative perspective. Pleurx catheter would be acceptable as a comfort measure-interventional radiology would be the consultants that would place this device
Pulmonary will sign off-please call with questions
Diagnostic Data
Chest X-Ray: 11/11/23- Status post right thoracentesis with no evidence for pneumothorax.
CT Scan:
11/02/2023 duplex ultrasound left lower extremity: Acute occlusive DVT in the left peroneal vein. The left common femoral, femoral, popliteal, and posterior tibial veins are patent.
Echo: Echocardiogram 11/07/2023: Ejection fraction 55-60%. Normal diastolic function. Normal biventricular size and function. Mild AR.
PFT's:
Reports and relevant images were personally reviewed.
-----
Total time spent on this encounter __35__ includes review of history, physical exam, medications, laboratory data, personal review of imaging, extensive review of outpatient records, discussion with care team and respiratory therapy.
Subjective Data
-
Date of Service:
Date of Service: November 14, 2023
Chief Complaint: Pulmonary Follow Up and Dyspnea Follow Up
Subjective:
. No increased respiratory distress, speaking about comfort care with family
Review of Systems
General: Other ( per HPI)
Objective Data
Data Reviewed
Vital Signs / I&O:
Vital Signs
Temp Pulse Resp BP Pulse Ox
98.2 F 81 19 113/69 97
11/14/23 08:01 11/14/23 08:01 11/14/23 08:01 11/14/23 08:01 11/14/23 08:01
Intake and Output
11/13/23 11/14/23 11/15/23
06:59 06:59 06:59
Intake Total 920 / 920 720 / 720
Balance 920 / 920 720 / 720
SaO2: 97
Nasal Cannula flow liters per minute: 3
Physical Exam
General: Comfortable and Other (NAD)
HEENT: Normocephalic, Anicteric and Moist Mucous Membranes
Cardiovascular: Regular Rhythm
Respiratory: Clear and Non-Labored Respirations
GI: Soft, Distended and Non Tender
Neurology: Awake, Alert, Oriented and No Motor Deficits
Skin: Warm, Dry and Good Color
Labs/Micro/Reports
Lab Data
11/13/23 07:40
11/13/23 07:40
Microbiology
11/11/23 12:25 Pleural Fluid Body Fluid Culture - Preliminary
No Growth After 48 Hours
11/11/23 12:25 Pleural Fluid Gram Stain - Preliminary
--- NOTE | 2023-11-14 11:18 | W.PN.ID1 ---
Date of Service
Date of Service: November 14, 2023
Today's Communication
Complete course of antibiotics today.
Assessment / Plan
E. coli bacteremia
- suspected 2* gut translocation. No evidence of SBP on paracentesis
Pleural effusion
- s/p thoracentesis x 2
Right hepatic hydrothorax (recurrent)
Reported rectal thickening on CT.
Acute occlusive DVT
GERD
DM type II
HTN
Dyslipidemia
Chronic back pain
Neuropathy
Diverticulosis
Renal insufficiency
Recommendations:
Completing course of Keflex today.
Await further input from Hospice Service
��������������������������������������������������������
Chief Complaint
-: Leukocytosis and Bacteremia
Subjective / Review of Systems
Patient seen and examined. Breathing comfortable.
Review of Systems: No Fever and No Chills
Vital Signs / Physical Exam
Vital Signs
Vital Signs
Temp Pulse Resp BP Pulse Ox
98.2 F 81 19 113/69 97
11/14/23 08:01 11/14/23 08:01 11/14/23 08:01 11/14/23 08:01 11/14/23 09:47
Physical Exam
Constitutional: No Acute Distress, Comfortable, Chronically Ill and Non-toxic
Eyes: Sclera Anicteric
Pulmonary: Non Labored
Gastrointestinal: Non Distended
Neurological: Awake, Alert and Oriented
Psychological: Calm
Objective Data
Lab Data
Lab Results
11/13/23 07:40
11/13/23 07:40
PT 24.5 Sec (11.4-14.6) H 11/07/23 08:39
INR 2.23 11/07/23 08:39
Estimated Creat Clear 27 ml/min 11/13/23 07:40
Lactic Acid 1.5 mmol/L (0.7-2.0) 11/02/23 01:54
Total Bilirubin 0.4 mg/dl (0.2-1.3) 11/10/23 08:16
AST 25 U/L (14-36) 11/10/23 08:16
ALT < 10 U/L (0-35) 11/10/23 08:16
Alkaline Phosphatase 215 U/L (38-126) H 11/10/23 08:16
Most recent labs reviewed.
Micro Results:
11/11/23 12:25 Body Fluid Culture - Final
Pleural Fluid No Growth After 72 Hours
Gram Stain - Final
11/07/23 10:46 Body Fluid Culture - Final
Peritoneal Fluid No Growth After 72 Hours
Gram Stain - Final
11/03/23 12:50 Blood Culture - Final
Blood/Venous No Growth - Final Report
11/02/23 11:07 Body Fluid Culture - Final
Pleural Fluid No Growth After 72 Hours
Gram Stain - Final
11/01/23 18:01 Blood Culture - Final
Blood/Venous Escherichia coli
Gram Stain - Final
11/01/23 16:47 Blood Culture - Final
Blood/Venous Escherichia coli
Gram Stain - Final
11/02/23 05:13 Urine Culture - Final
Urine NO GROWTH
11/01/23 16:47 Influenza Types A & B (JAMARI) - Final
Nasal Swab Negative for Influenza A & B, NAAT
Negative results must be combined with clinical observations
and patient history.
Nucleic Acid Amplification test (NAAT)performed on the
[employer] platform.
Imaging:
11/02/2023 duplex ultrasound left lower extremity: Acute occlusive DVT in the left peroneal vein. The left common femoral, femoral, popliteal, and posterior tibial veins are patent.
11/01/2023 CT chest abdomen pelvis: A large right pleural effusion noted, causing mild right to left mediastinal shift and completely compressive atelectasis of the left lower and middle lobes. Small left pleural effusion noted. Small to moderate
volume ascites. Mild hepatic cirrhosis noted. Severe submucosal edema and wall thickening throughout the ascending colon. Severe circumferential wall thickening in the rectum. Severe diverticulosis in the descending and sigmoid colon. Please
see full dictation for additional detail. Film personally reviewed.
[2023-11-14] MEDS: ULTRAM 25 MG PO ×2 (12:38→22:06)
[2023-11-14] MEDS: TYLENOL 650 MG PO ×2 (14:37→20:19)
--- NOTE | 2023-11-14 15:08 | HOSPNOTE ---
Spoke with [facility]hill[facility] and they are in agreement with hospice and the philosophy. The plan is the son will call me tomorrow, they are respectful of the patient's wishes and the plan would be back to with hospice. Casemanagement and Attending
aware of plan. Most likely discharge Wednesday 11/15.
[2023-11-14 15:22] VITALS: BP 133/63
--- NOTE | 2023-11-14 15:53 | CM ---
Patient seen at bedside with physician. Patient plan is for comfort care and patient declined plurex cath at this time. CM will continue to follow for discharge planning needs.
Plan; return to [facility] vs SNF option for hospice care.
--- NOTE | 2023-11-14 15:59 | W.PN.PAL2 ---
Today's Communication
-
Patient seen at bedside at 12:00 pm.
She is comfortable, without active symptoms of pain or shortness of breath at the moment.
Reports she is waiting on hospice liason to meet with her so they can make plans for home hospice. She thought someone would meet her over the weekend. She spoke to her children about hospice and they are in support of her plan.
Recommend pleurex placed before discharge to manage symptoms. Recommend placement rather than return to [facility].
Assessment / Plan
-
Assessment/Plan:
Plan for hospice at a facility, awaiting meeting with liason.
Reason for Admission
Illness Course/HPI
Petrona is a 88 y/o female with pmhx of HTN, DM, who was living independently earlier in the year, moved to [facility] after fall, over the last two months was hospitalized 09/29/23 for encephalopathy, 10/06 for fall ER visit, and 10/31 for hypoxia and
sepsis. she has been found to have recurrent right pleural effusions with ascities secondary to cirrhosis. Current hospital stay also with sepsis from pneumonia. Recent fibular fracture, now out of immobilizer, and acute peroneal DVT. Overall
significant decline in level of function in the past 3 months.
Palliative care consulted to discuss goals of care with patient.
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
She has required 3-4 thoracentesis in the past few months, and she is not sure she will be able to manage at home or keep coming back and forth to the hospital. she expresses that she is not afraid of dying, and that she would want to focus on
comfort, but would still want the thoracentesis but concerned about how she would get there and how frequently she would need it.
Discussed home hospice services, and how we could place a pleurex catheter and drain at home on hospice, but typically would not place pleurex in this scenario without the support of home hospice.
We discussed focus on comfort and what that entails
We discussed her level of needs - returning to [facility] environment would not be enough support, patient would require LTC which she would be agreeable to.
Functional Status
Currently requires assistance with all cares, only recently was approved for WBAT out of knee immobilizer
Goals of Care Discussion
-
Patient able to participate in discussion at time of visit: Yes
Patient Goals
Hospice at a facility
Pain & Symptom Assessment
[place] Symptom Scale 0=none, 10=worst
Pain: 0
-
Patient denies symptoms at rest. she is mostly bed bound, fatigues easily with exetion. still missing upper dentures and upset about food
Objective Data
-
Objective Data:
Vital Signs
Temp Pulse Resp BP Pulse Ox
98.4 F 75 20 133/63 97
11/14/23 15:22 11/14/23 15:22 11/14/23 15:22 11/14/23 15:22 11/14/23 15:22
Laboratory Results
11/13/23 07:40
11/13/23 07:40
PT 24.5 Sec (11.4-14.6) H 11/07/23 08:39
INR 2.23 11/07/23 08:39
Hemoglobin A1c 6.7 % (4.0-5.6) H 11/02/23 05:12
Ammonia < 9 umol/L (9-30) L 11/05/23 08:29
Total Protein 6.6 g/dl (6.3-8.2) 11/10/23 08:16
Albumin 2.5 g/dl (3.5-5.0) L 11/10/23 08:16
Urine Color Yellow 11/02/23 05:13
Urine Clarity Clear (Clear) 11/02/23 05:13
Urine pH 5.0 (5.0-9.0) 11/02/23 05:13
Ur Specific [place] 1.015 (<1.030) 11/02/23 05:13
Urine Ketones Trace (Negative) A 11/02/23 05:13
Urine Bilirubin Negative (Negative) 11/02/23 05:13
Palliative Performance Score Response
Palliative Performance Score Response: 40%
Physical Exam
-
General: No Apparent Distress
Psych: Calm and Intact Judgement/Insight
Care Reviewed
Data Reviewed
Radiology procedure: Image Reviewed and Report Reviewed (reviewd cxr report from weekend )
--- NOTE | 2023-11-14 17:42 | W.PN.HOSP.TC ---
Today's Communication/Plan
-
'home' with hospice--if no PleurX, may qualify for GIP?
Assessment / Plan
Assessment / Plan
pt is an 88 year old female
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
BOYLE--Status post paracentesis, multiple thoracentesis with transudative findings all consistent with hepatic etiology--Echocardiogram with preserved LVEF, normal diastology and pulmonary pressures, no concern for cardiac cause at this time--Status
post thoracentesis again on 11/10--pt clearly wants hospice and she said her family is all on board--when I asked about the PleurX she started to cry and really wants no more procedures-Continue Lasix 20 mg and spironolactone 50 mg, trend
BMP-Continue with lactulose and Xifaxan for newly diagnosed cirrhosis with ascites-Monitor on room air, SpO2 goal >90%
E. coli bacteremia-Suspect this is secondary to gut translocation; final culture showed E. coli; paracentesis without signs of SBP--Infectious disease following, has since transition antibiotics to cefazolin 2 g IV every 8 hours--Repeat blood
cultures x 2 have been negative; has been transitioned to oral Keflex regimen--Plan to continue Keflex to complete 10 to 14 days of antibiotic, plan last day on 11/13--finished ABX--apprec ID
Left fibular fracture with Acute DVT of LLE--Presented with known fracture, edema of the left lower extremity; US showed acute DVT--Xray: Subacute horizontal, minimally displaced fracture of the proximal fibular diaphysis--Orthopedics evaluated,
WBAT, will follow-up outpatient--Patient remains on Eliquis
Type 2 DM--Diet controlled, no known microvascular complications
Essential Hypertension--Home regimen includes atenolol--No known history of hypertensive systemic disease--Blood pressure currently well-controlled
GERD--No known history of Pandya's esophagus or erosive disease--Home regimen includes daily PPI
Anemia of chronic disease--Secondary to age, above issues--Hemoglobin stable, no signs of bleeding
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
Incidental adrenal mass--No evidence of biochemical activity, hormone changes--1.7 cm adrenal mass on the left side seen on CT
Rectal wall thickening--Unclear etiology, family has stated they do not want colonoscopy
DVT prophylaxis: Eliquis
CODE STATUS: DNR
Anticipated Discharge: 24 - 48 hours
Subjective/Interval History
-
Date of Service: November 14, 2023
pt wants hospice--she only wants to go to sleep and not wake up--she is not interested in any procedures including PleurX (she told me today)
Objective Data
-
Vital Signs:
max temp for 24 hours
11/14/23
15:22
Temp 98.4 F
Vital Signs
Temp Pulse Resp BP Pulse Ox
98.4 F 75 20 133/63 97
11/14/23 15:22 11/14/23 15:22 11/14/23 15:22 11/14/23 15:22 11/14/23 15:22
I&O
11/13/23 11/14/23 11/15/23
06:59 06:59 06:59
Intake Total 920 / 920 720 / 720
Balance 920 / 920 720 / 720
Review of Systems
-
All other systems: Reviewed and negative
Physical Exam
-
General: Well Developed, Well Nourished and No Apparent Distress
HEENT: Normocephalic, Atraumatic and Oxygen
Respiratory: Clear to Auscultation; Negative Wheezes or Rhonchi
Cardiac: Regular Rhythm and S1/S2; Negative Murmur
GI: Soft, Nontender, Nondistended and Normal Bowel Sounds
Musculoskeletal: No Clubbing, No Cyanosis and No Edema
Neuro: Awake and Alert
Psych: Calm
[2023-11-14] MEDS: XIFAXAN PO ×2 (20:19→20:35)
[2023-11-14] MEDS: LIDOCAINE 4% PATCH TOPICAL (20:20)
[2023-11-14 23:35] VITALS: BP 122/50
[2023-11-15 06:00] VITALS: BMI 22.6
[2023-11-15 07:47] VITALS: BP 141/61
[2023-11-15] MEDS: ELIQUIS 5 MG PO ×2 (08:26→19:50)
[2023-11-15] MEDS: TENORMIN 50 MG PO (08:26)
[2023-11-15] MEDS: ALDACTONE 50 MG PO (08:26)
[2023-11-15] MEDS: LASIX 20 MG PO (08:26)
[2023-11-15] MEDS: DESENEX/MITRAZOL/ZEASORB 1 APPLIC TOPICAL ×2 (08:27→19:50)
[2023-11-15] MEDS: XIFAXAN 550 MG PO ×2 (08:27→19:47)
[2023-11-15] MEDS: PROTONIX 40 MG PO (08:27)
[2023-11-15] MEDS: HYDROPHOR 1 APPLIC TOPICAL (08:28)
[2023-11-15] MEDS: ULTRAM 25 MG PO ×2 (11:32→19:51)
--- NOTE | 2023-11-15 11:33 | HOSPNOTE ---
The plan is for patient to return to on hospice services with DH. I spoke at length with son and DIL and all in agreement. Patient will need transport via ambulance will need OOH DNR on chart and once patient arrives at we will sign patient
onto hospice services. Case management and Attending aware.
--- NOTE | 2023-11-15 13:37 | CM ---
Addendum entered by Bernadette Burden 11/15/23 15:29:
Updated plan. Patient for ascept cath tomorrow. and transfer to SNF after procedure. CM will complete documentation for transfer forms as patient will need ambulance transport and out of hospital DNR.
Original Note:
Patient seen at bedside with physician and resident. Patient for transfer to [facility] for hospice/comfort care. Patient will need Out of Hospital DNR and Transportation via ambulance. Patient family has spoken with [facility] and are in agreement with private
pay for hospice. [facility] hosp[facility] to follow. CM will continue to follow for discharge planning needs.
PLan; transfer to [facility] for hospice.
--- NOTE | 2023-11-15 13:41 | W.PN.HOSP.TC ---
Today's Communication/Plan
-
consult IR for PLeurX-pt may refuse if she really doesn't want procedures
d/c planning for hospice at [facility] in AM
Assessment / Plan
Assessment / Plan
pt is an 88 year old female
plan for hospice to [facility] tomorrow at 10 AM
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
BOYLE--Status post paracentesis, multiple thoracentesis with transudative findings all consistent with hepatic etiology--Echocardiogram with preserved LVEF, normal diastology and pulmonary pressures, no concern for cardiac cause at this time--Status
post thoracentesis again on 11/10--pt clearly wants hospice and she said her family is all on board--when I asked about the PleurX she started to cry and really wants no more procedures, nevertheless, I consulted IR for PleurX, pt may refuse if she
really doesn't want it-Continue Lasix 20 mg and spironolactone 50 mg, trend BMP-Continue with lactulose and Xifaxan for newly diagnosed cirrhosis with ascites-Monitor on room air, SpO2 goal >90%
E. coli bacteremia-Suspect this is secondary to gut translocation; final culture showed E. coli; paracentesis without signs of SBP--Infectious disease following, has since transition antibiotics to cefazolin 2 g IV every 8 hours--Repeat blood
cultures x 2 have been negative; has been transitioned to oral Keflex regimen--Plan to continue Keflex to complete 10 to 14 days of antibiotic, plan last day on 11/13--finished ABX--apprec ID
Left fibular fracture with Acute DVT of LLE--Presented with known fracture, edema of the left lower extremity; US showed acute DVT--Xray: Subacute horizontal, minimally displaced fracture of the proximal fibular diaphysis--Orthopedics evaluated,
WBAT, will follow-up outpatient--Patient remains on Eliquis
Type 2 DM--Diet controlled, no known microvascular complications
Essential Hypertension--Home regimen includes atenolol--No known history of hypertensive systemic disease--Blood pressure currently well-controlled
GERD--No known history of Pandya's esophagus or erosive disease--Home regimen includes daily PPI
Anemia of chronic disease--Secondary to age, above issues--Hemoglobin stable, no signs of bleeding
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
Incidental adrenal mass--No evidence of biochemical activity, hormone changes--1.7 cm adrenal mass on the left side seen on CT
Rectal wall thickening--Unclear etiology, family has stated they do not want colonoscopy
DVT prophylaxis: Eliquis
CODE STATUS: DNR
Anticipated Discharge: Within 24 hours
Subjective/Interval History
-
Date of Service: November 15, 2023
pt without c/o
Objective Data
-
Vital Signs:
max temp for 24 hours
11/14/23
15:22
Temp 98.4 F
Vital Signs
Temp Pulse Resp BP Pulse Ox
97.7 F 70 20 141/61 95
11/15/23 07:47 11/15/23 07:47 11/15/23 07:47 11/15/23 07:47 11/15/23 08:00
I&O
11/14/23 11/15/23 11/16/23
06:59 06:59 06:59
Intake Total 720 / 720 960 / 960
Balance 720 / 720 960 / 960
Review of Systems
-
All other systems: Reviewed and negative
Physical Exam
-
General: Appears Chronically Ill
HEENT: Normocephalic and Atraumatic
Respiratory: Clear to Auscultation and Decreased Breath Sounds
Cardiac: Regular Rhythm and S1/S2; Negative Murmur
GI: Soft, Nontender, Nondistended and Normal Bowel Sounds
Musculoskeletal: No Clubbing, No Cyanosis and No Edema
Neuro: Awake and Alert
Psych: Calm
--- NOTE | 2023-11-15 14:08 | W.PN.UPDATE ---
Update Note
Progress Note Update
Interventional Radiology Consultation Note
DX: Pleural Effusion
We were asked to speak with patient and her family regarding Asept catheter placement. I went to her room to discuss the procedure. She states that she is interested in Asept placement. She is planning on going to hospice after that. I explained
the procedure to her and her family at the bedside. They understand the indications, risks and benefits. We will plan on performing the procedure tomorrow afternoon. Patient and family aware.
I personally reviewed the relevant clinical data and imaging and discussed the findings and plan with the treatment team. I spent 15 minutes on medical consultative discussion and review.
More than half of my time was spent on discussions with the patient and her family.
--- NOTE | 2023-11-15 14:39 | W.PN.ID1 ---
Date of Service
Date of Service: November 15, 2023
Today's Communication
Continue off abx.
Assessment / Plan
E. coli bacteremia
- suspected 2* gut translocation. No evidence of SBP on paracentesis
Pleural effusion
- s/p thoracentesis x 2
Right hepatic hydrothorax (recurrent)
Reported rectal thickening on CT.
Acute occlusive DVT
GERD
DM type II
HTN
Dyslipidemia
Chronic back pain
Neuropathy
Diverticulosis
Renal insufficiency
Recommendations:
Overall stable S/P course of antibiotics for E. coli bacteremia.
For potential Pleurx catheter placement.
Little more to offer from a Infectious Disease standpoint.
Will continue to follow along with you peripherally.
��������������������������������������������������������
Chief Complaint
-: Leukocytosis and Bacteremia
Subjective / Review of Systems
Review of Systems: No Fever and No Chills
Vital Signs / Physical Exam
Vital Signs
Vital Signs
Temp Pulse Resp BP Pulse Ox
97.7 F 70 20 141/61 95
11/15/23 07:47 11/15/23 07:47 11/15/23 07:47 11/15/23 07:47 11/15/23 08:00
Physical Exam
Constitutional: Comfortable and Non-toxic
Eyes: Sclera Anicteric
Pulmonary: Non Labored
Gastrointestinal: Soft and Distended (mild)
Neurological: Awake, Alert and Oriented
Psychological: Calm
Objective Data
Lab Data
Lab Results
11/13/23 07:40
11/13/23 07:40
PT 24.5 Sec (11.4-14.6) H 11/07/23 08:39
INR 2.23 11/07/23 08:39
Estimated Creat Clear 27 ml/min 11/13/23 07:40
Lactic Acid 1.5 mmol/L (0.7-2.0) 11/02/23 01:54
Total Bilirubin 0.4 mg/dl (0.2-1.3) 11/10/23 08:16
AST 25 U/L (14-36) 11/10/23 08:16
ALT < 10 U/L (0-35) 11/10/23 08:16
Alkaline Phosphatase 215 U/L (38-126) H 11/10/23 08:16
Most recent labs reviewed.
Micro Results:
11/11/23 12:25 Body Fluid Culture - Final
Pleural Fluid No Growth After 72 Hours
Gram Stain - Final
11/07/23 10:46 Body Fluid Culture - Final
Peritoneal Fluid No Growth After 72 Hours
Gram Stain - Final
11/03/23 12:50 Blood Culture - Final
Blood/Venous No Growth - Final Report
11/02/23 11:07 Body Fluid Culture - Final
Pleural Fluid No Growth After 72 Hours
Gram Stain - Final
11/01/23 18:01 Blood Culture - Final
Blood/Venous Escherichia coli
Gram Stain - Final
11/01/23 16:47 Blood Culture - Final
Blood/Venous Escherichia coli
Gram Stain - Final
11/02/23 05:13 Urine Culture - Final
Urine NO GROWTH
11/01/23 16:47 Influenza Types A & B (JAMARI) - Final
Nasal Swab Negative for Influenza A & B, NAAT
Negative results must be combined with clinical observations
and patient history.
Nucleic Acid Amplification test (NAAT)performed on the
[employer] platform.
Imaging:
11/02/2023 duplex ultrasound left lower extremity: Acute occlusive DVT in the left peroneal vein. The left common femoral, femoral, popliteal, and posterior tibial veins are patent.
11/01/2023 CT chest abdomen pelvis: A large right pleural effusion noted, causing mild right to left mediastinal shift and completely compressive atelectasis of the left lower and middle lobes. Small left pleural effusion noted. Small to moderate
volume ascites. Mild hepatic cirrhosis noted. Severe submucosal edema and wall thickening throughout the ascending colon. Severe circumferential wall thickening in the rectum. Severe diverticulosis in the descending and sigmoid colon. Please
see full dictation for additional detail. Film personally reviewed.
[2023-11-15 15:23] VITALS: BP 120/58
[2023-11-15] MEDS: LIDOCAINE 4% PATCH TOPICAL (22:11)
[2023-11-15 23:39] VITALS: BP 152/81
[2023-11-16 06:00] VITALS: BMI 22.4
[2023-11-16 08:09] VITALS: BP 160/86
[2023-11-16] MEDS: XIFAXAN 550 MG PO ×2 (09:16→19:49)
[2023-11-16] MEDS: LASIX 20 MG PO (09:16)
[2023-11-16] MEDS: TENORMIN 50 MG PO (09:16)
[2023-11-16] MEDS: PROTONIX 40 MG PO (09:16)
[2023-11-16] MEDS: ALDACTONE 50 MG PO (09:17)
[2023-11-16] MEDS: ELIQUIS 5 MG PO ×2 (09:17→19:49)
[2023-11-16] MEDS: DESENEX/MITRAZOL/ZEASORB 1 APPLIC TOPICAL ×2 (09:18→19:49)
[2023-11-16] MEDS: HYDROPHOR TOPICAL (09:19)
--- NOTE | 2023-11-16 09:32 | CM ---
Addendum entered by Bernadette Burden 11/16/23 16:24:
Please call report to [phone] fax [phone] tomorrow. ambulance scheduled for 12 noon CM will complete transportation forms.
Addendum entered by Bernadette Burden 11/16/23 13:48:
Transfer now postponed to tomorrow at physician request. Pending IR procedure. family at bedside and completed IMM and signed form placed on chart. Patient aware and in agreement. CM will update Facility and liaison
Original Note:
Patient for transfer to SNF following IR procedure pending physician. Please call report to [phone] and fax to [phone]. CM will continue to follow for discharge planning needs.
Plan; transfer to [facility] today following procedure
[2023-11-16 14:05] VITALS: BP 149/63; BP_SYST 76
[2023-11-16 16:04] VITALS: BP 147/52; BP_SYST 64
--- NOTE | 2023-11-16 18:42 | W.PN.HOSP.TC ---
Today's Communication/Plan
-
d/c to hospice tomorrow
Assessment / Plan
Assessment / Plan
pt is an 88 year old female
plan for hospice to [facility] tomorrow at 10 AM
Asept cath placed today
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
BOYLE--Status post paracentesis, multiple thoracentesis with transudative findings all consistent with hepatic etiology--Echocardiogram with preserved LVEF, normal diastology and pulmonary pressures, no concern for cardiac cause at this time--Status
post thoracentesis again on 11/10--pt clearly wants hospice and she said her family is all on board-- IR for Asept cath-Continue Lasix 20 mg and spironolactone 50 mg, trend BMP-Continue with lactulose and Xifaxan for newly diagnosed cirrhosis with
ascites-Monitor on room air, SpO2 goal >90%
E. coli bacteremia-Suspect this is secondary to gut translocation; final culture showed E. coli; paracentesis without signs of SBP--Infectious disease following, has since transition antibiotics to cefazolin 2 g IV every 8 hours--Repeat blood
cultures x 2 have been negative; has been transitioned to oral Keflex regimen--Plan to continue Keflex to complete 10 to 14 days of antibiotic, plan last day on 11/13--finished ABX--apprec ID
Left fibular fracture with Acute DVT of LLE--Presented with known fracture, edema of the left lower extremity; US showed acute DVT--Xray: Subacute horizontal, minimally displaced fracture of the proximal fibular diaphysis--Orthopedics evaluated,
WBAT, will follow-up outpatient--Patient remains on Eliquis
Type 2 DM--Diet controlled, no known microvascular complications
Essential Hypertension--Home regimen includes atenolol--No known history of hypertensive systemic disease--Blood pressure currently well-controlled
GERD--No known history of Pandya's esophagus or erosive disease--Home regimen includes daily PPI
Anemia of chronic disease--Secondary to age, above issues--Hemoglobin stable, no signs of bleeding
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
Incidental adrenal mass--No evidence of biochemical activity, hormone changes--1.7 cm adrenal mass on the left side seen on CT
Rectal wall thickening--Unclear etiology, family has stated they do not want colonoscopy
DVT prophylaxis: Eliquis
CODE STATUS: DNR
Anticipated Discharge: Within 24 hours
Subjective/Interval History
-
Date of Service: November 16, 2023
pt waiting for Asept catheter
Objective Data
-
Vital Signs:
max temp for 24 hours
11/16/23
14:05
Temp 98.4 F
Vital Signs
Temp Pulse Resp BP Pulse Ox
97.6 F 64 18 147/52 96
11/16/23 16:04 11/16/23 16:04 11/16/23 16:04 11/16/23 16:04 11/16/23 16:04
I&O
11/15/23 11/16/23 11/17/23
06:59 06:59 06:59
Intake Total 960 / 960 1320 / 1320 720 / 720
Balance 960 / 960 1320 / 1320 720 / 720
Review of Systems
-
All other systems: Reviewed and negative
Physical Exam
-
General: Well Developed, Well Nourished and No Apparent Distress
HEENT: Normocephalic and Atraumatic
Respiratory: Clear to Auscultation and Decreased Breath Sounds; Negative Wheezes or Rhonchi
Cardiac: Regular Rhythm and S1/S2; Negative Murmur
GI: Soft, Nontender, Nondistended and Normal Bowel Sounds
Musculoskeletal: No Clubbing, No Cyanosis and No Edema
Neuro: Awake and Alert
[2023-11-16] MEDS: LIDOCAINE 4% PATCH TOPICAL (22:37)
[2023-11-16] MEDS: ULTRAM 25 MG PO (23:41)
[2023-11-16 23:54] VITALS: BP 134/63
[2023-11-17] MEDS: TYLENOL 650 MG PO (02:24)
[2023-11-17 03:49] VITALS: BMI 22.4
[2023-11-17 07:40] VITALS: BP 136/59
[2023-11-17] MEDS: ULTRAM 25 MG PO (07:49)
[2023-11-17] MEDS: XIFAXAN 550 MG PO (07:49)
[2023-11-17] MEDS: ALDACTONE 50 MG PO (07:50)
[2023-11-17] MEDS: PROTONIX 40 MG PO (07:50)
[2023-11-17] MEDS: TENORMIN 50 MG PO (07:50)
[2023-11-17] MEDS: LASIX 20 MG PO (07:50)
[2023-11-17] MEDS: ELIQUIS 5 MG PO (07:51)
[2023-11-17] MEDS: DESENEX/MITRAZOL/ZEASORB TOPICAL (07:52)
[2023-11-17] MEDS: HYDROPHOR TOPICAL (07:52)
--- NOTE | 2023-11-17 07:59 | W.PN.HOSP.TC ---
Today's Communication/Plan
-
d/c to SNF with hospice
Assessment / Plan
Assessment / Plan
pt is an 88 year old female
d/c to hospice to [facility]
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
BOYLE--Status post paracentesis, multiple thoracentesis with transudative findings all consistent with hepatic etiology--Echocardiogram with preserved LVEF, normal diastology and pulmonary pressures, no concern for cardiac cause at this time--Status
post thoracentesis again on 11/10--pt clearly wants hospice and she said her family is all on board--s/p IR for Asept cath-Continue Lasix 20 mg and spironolactone 50 mg, trend BMP-Continue with lactulose and Xifaxan for newly diagnosed cirrhosis with
ascites-Monitor on room air, SpO2 goal >90%
E. coli bacteremia-Suspect this is secondary to gut translocation; final culture showed E. coli; paracentesis without signs of SBP--Infectious disease following, has since transition antibiotics to cefazolin 2 g IV every 8 hours--Repeat blood
cultures x 2 have been negative; has been transitioned to oral Keflex regimen--Plan to continue Keflex to complete 10 to 14 days of antibiotic, plan last day on 11/13--finished ABX--apprec ID
Left fibular fracture with Acute DVT of LLE--Presented with known fracture, edema of the left lower extremity; US showed acute DVT--Xray: Subacute horizontal, minimally displaced fracture of the proximal fibular diaphysis--Orthopedics evaluated,
WBAT, will follow-up outpatient--Patient remains on Eliquis
Type 2 DM--Diet controlled, no known microvascular complications
Essential Hypertension--Home regimen includes atenolol--No known history of hypertensive systemic disease--Blood pressure currently well-controlled
GERD--No known history of Pandya's esophagus or erosive disease--Home regimen includes daily PPI
Anemia of chronic disease--Secondary to age, above issues--Hemoglobin stable, no signs of bleeding
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
Incidental adrenal mass--No evidence of biochemical activity, hormone changes--1.7 cm adrenal mass on the left side seen on CT
Rectal wall thickening--Unclear etiology, family has stated they do not want colonoscopy
DVT prophylaxis: Eliquis
CODE STATUS: DNR
Anticipated Discharge: Today
Subjective/Interval History
-
Date of Service: November 17, 2023
ready for d/c
Objective Data
-
Vital Signs:
max temp for 24 hours
11/16/23
23:54
Temp 98.3 F
Vital Signs
Temp Pulse Resp BP Pulse Ox
97.8 F 69 16 136/59 97
11/17/23 07:40 11/17/23 07:40 11/17/23 07:40 11/17/23 07:50 11/17/23 07:40
I&O
11/16/23 11/17/23 11/18/23
06:59 06:59 06:59
Intake Total 1320 / 1320 720 / 720
Balance 1320 / 1320 720 / 720
Review of Systems
-
All other systems: Reviewed and negative
Physical Exam
-
General: Appears Chronically Ill
HEENT: Normocephalic and Atraumatic
Respiratory: Decreased Breath Sounds
Cardiac: Regular Rhythm and S1/S2; Negative Murmur
GI: Soft, Nontender, Nondistended and Normal Bowel Sounds
Musculoskeletal: No Clubbing, No Cyanosis and No Edema
Neuro: Awake
[2023-11-17 10:41] VITALS: BP 143/67
--- NOTE | 2023-11-18 08:00 | W.DCSUMMARY ---
Discharge Summary
Discharge Data
Date of Admission: 11/01/23
Date of Discharge: 11/17/23
-
Pending Results: No
Hospital Course
Primary care physician : Clarence Negrete
Principal Discharge diagnosis : Recurrent right pleural effusion with hepatic hydrothorax with new onset cirrhosis with ascites with acute hypoxemic respiratory insufficiency which resolved, Escherichia coli bacteremia secondary to gut
translocation, left fibular fracture with acute deep venous thrombosis of the left lower extremity
Chronic Discharge diagnosis : Type 2 diabetes mellitus, essential hypertension, gastroesophageal reflux disease, anemia of chronic disease, spinal stenosis with sciatica, incidental adrenal mass, rectal wall thickening
Hospital Course : Patient was an 88-year-old female who presented with hypoxia and shortness of breath. She was sent from [facility] after they noticed her to be more short of breath. She was found to be hypoxic in the
emergency department and febrile. Patient was admitted.
Problem #1: Recurrent right pleural effusion with hepatic hydrothorax along with new onset cirrhosis and ascites/ Acute hypoxemic respiratory insufficiency. Patient had newly diagnosed cirrhosis secondary to Bennett. She required oxygen. She had
multiple thoracentesis which did not show any infection and appeared to be transudative. Initially this was suspected to be hepatic hydrothorax in the context of newly diagnosed cirrhosis. Echocardiogram was also done which showed preserved
ejection fraction normal diastolic pressures and pulmonary pressures therefore there was no concern for cardiac cause at this time. Patient did get started on lactulose and Xifaxan. GI was consulted.
After a prolonged hospitalization and multiple thoracentesis, patient has stated that she has had enough. She wished for hospice. Palliative care was called. Family was on board. Initially, the patient stated she wanted no further procedures
even though a an Asept catheter was recommended. Plans were made for discharge but the patient then changed her mind. Interventional radiology was consulted and the THEE catheter was placed. Patient is stable to return to [facility]
Assisted with hospice to start there.
Problem #3: Escherichia coli bacteremia secondary to gut translocation. Patient's final culture showed Escherichia coli. Patient had paracentesis without signs of spontaneous bacterial peritonitis. Infectious disease was consulted. She was
started on broad-spectrum antibiotics which narrowed to cefazolin. Repeat blood cultures were negative. She then was transitioned to oral Keflex. She finished her last day of antibiotics on November 14, 2023.
Problem #4: Acute deep venous thrombosis of the left lower extremity from left fibular fracture and immobility. Patient was seen in consultation by orthopedics who did not offer any additional information rather than immobility and to keep her in
the knee immobilizer. It was noted that her left leg/ankle area was swollen compared to the right. Ultrasound was done which showed acute deep venous thrombosis. Patient was started on Eliquis. She was allowed to be weightbearing as tolerated.
Problem #5: All other medical issues. These include Type 2 diabetes mellitus, essential hypertension, gastroesophageal reflux disease, anemia of chronic disease, spinal stenosis with sciatica, incidental adrenal mass, rectal wall thickening. These
medical issues were stable during her hospitalization. Medications were continued as able.
Patient is stable to return to [facility]. Hospice will be initiated upon arrival. If there are any questions regarding this dictation or hospital stay, please not hesitate to call. Our office number is [phone].
Time for discharge 40 minutes.
Discharge Plan
-
Patient Disposition: Assisted/SNF
Discharge Diagnosis/Procedures: Recurrent right pleural effusion with hepatic hydrothorax from new onset cirrhosis with ascites, acute hypoxemic respiratory insufficiency resolved, Escherichia coli bacteremia secondary to gut translocation, left
fibular fracture with acute deep venous thrombosis of the left lower extremity, type 2 diabetes mellitus, essential hypertension, gastroesophageal reflux disease, anemia of chronic disease, spinal stenosis with sciatica, incidental adrenal mass,
rectal wall thickening
Condition: Fair
Diet: As tolerated
Activity: As tolerated
Driving Restrictions: No driving
Bathing Restrictions: None
Other Services: Hospice
Activity Restrictions/Additional Instructions:
Wound Care Instructions
L buttock: clean with saline or soap and water, skin prep then small Exuderm thin change q 3 days and prn soilage.
Sacrum: clean with soap and water, Sacral silicone foam change q 3 days and prn soilage.
Fungal powder to remaining exposed skin and folds bid
Mineral oil to legs daily
L posterior ankle: silicone foam change q 3 days and prn soilage.
Heels: skin prep and adhesive foams change q 3 days and prn soilage.
Referrals:
Clarence Negrete DO [Family Provider] - in less than 1 week
Prescriptions:
New
pantoprazole 40 mg Tablet,Delayed Release (Dr/Ec)
40 mg PO DAILY Qty: 0 0RF
furosemide 20 mg Tablet
20 mg PO DAILY Qty: 0 0RF
atenolol 50 mg Tablet
50 mg PO DAILY Qty: 0 0RF
spironolactone 50 mg Tablet
50 mg PO DAILY Qty: 0 0RF
Xifaxan 550 mg Tablet
550 mg PO BID Qty: 0 0RF
Eliquis 5 mg Tablet
5 mg PO BID Qty: 0 0RF
Continued
sennosides [senna] 8.6 mg Tablet
17.2 mg PO BID
acetaminophen [Tylenol] 325 mg Tablet
650 mg PO Q6HPRN MDD 3000 mg PRN (Reason: mild pain/temp >100)
lidocaine 4 % Adhesive Patch,Medicated
1 patch TOPICAL DAILY
melatonin 3 mg Tablet
3 mg PO HS
ferrous sulfate 325 mg (65 mg iron) Tablet
325 mg PO DAILY
docusate sodium [Colace] 100 mg Capsule
100 mg PO Q48H
gabapentin 100 mg Capsule
100 mg PO BID
atenolol 50 mg Tablet
50 mg PO DAILY
omeprazole 20 mg Tablet,Delayed Release (Dr/Ec)
20 mg PO DAILY
bumetanide 0.5 mg Tablet
0.5 mg PO DAILY 30 Days Qty: 30 0RF
tramadol 50 mg Tablet
50 mg PO Q8HPRN PRN (Reason: moderate pain)
magnesium hydroxide [Milk of Magnesia] 400 mg/5 mL Suspension
30 ml PO N15GOAL PRN (Reason: day 3 no bm)
cyanocobalamin (vitamin B-12) 500 mcg Tablet
1,000 mcg PO DAILY
bisacodyl [Dulcolax (bisacodyl)] 10 mg Suppository
10 mg [place] DAILYPRN PRN (Reason: constipation, mom ineffective)
Fleet Enema 19-7 gram/118 mL Enema
118 ml [place] DAILYPRN PRN (Reason: constipation, dulcolax ineffective)
calcium carbonate-vitamin D3 500 mg-3.125 mcg (125 unit) Tablet
1 tab PO BID
zinc oxide 13 % Cream
1 applic TOPICAL Q8H
Discharge Orders:
Discharge Patient (As Directed); Ordered 11/17/23
Ordered By: Mervat Najera
Discharge Date and Time
Discharge Date/Time: 11/17/23 12:18
Print Language: SCOTTISH
== END 2023-11-17 12:18 | DRG 871 ==
LOC: 4 WEST ACU 19:48
PROVIDERS: Hospitalist; Internal Medicine; Nurse Practitioner Adult Health; Physician Assistant Medical; Radiology Diagnostic Radiology; Radiology Vascular & Interventional Radiology; Student in an Organized Health Care Education/Training Program; ADMITTING PHYSICIAN Hospitalist; ATTENDING PHYSICIAN Internal Medicine; CONSULT PHYSICIAN Internal Medicine Critical Care Medicine; CONSULT PHYSICIAN Internal Medicine Hospice and Palliative Medicine; CONSULT PHYSICIAN Internal Medicine Infectious Disease; CONSULT PHYSICIAN Orthopaedic Surgery; EMERGENCY PHYSICIAN Emergency Medicine; FAMILY PHYSICIAN Student in an Organized Health Care Education/Training Program; OTHER PHYSICIAN Internal Medicine Gastroenterology
PROC: 0W993ZZ Drainage of Right Pleural Cavity, Percutaneous Approach (ICD-10-PCS; 2023-11-02)
PROC: 0W9G3ZZ Drainage of Peritoneal Cavity, Percutaneous Approach (ICD-10-PCS; 2023-11-07)
PROC: 0B9N30Z Drainage of Right Pleura with Drainage Device, Percutaneous Approach (ICD-10-PCS; 2023-11-16)
DX: A41.51 Sepsis due to Escherichia coli [E. coli] (principal); J18.9 Pneumonia, unspecified organism; J91.8 Pleural effusion in other conditions classified elsewhere; E23.2 Diabetes insipidus; R18.8 Other ascites; I82.452 Acute embolism and thrombosis of left peroneal vein; J98.11 Atelectasis; K76.6 Portal hypertension; J94.8 Other specified pleural conditions; E78.00 Pure hypercholesterolemia, unspecified; I10 Essential (primary) hypertension; K21.9 Gastro-esophageal reflux disease without esophagitis; E11.40 Type 2 diabetes mellitus with diabetic neuropathy, unspecified; R41.89 Other symptoms and signs involving cognitive functions and awareness; K57.30 Diverticulosis of large intestine without perforation or abscess without bleeding; E88.09 Other disorders of plasma-protein metabolism, not elsewhere classified; D50.9 Iron deficiency anemia, unspecified; D63.8 Anemia in other chronic diseases classified elsewhere; L89.152 Pressure ulcer of sacral region, stage 2; K75.81 Nonalcoholic steatohepatitis (NASH); E27.9 Disorder of adrenal gland, unspecified; S82.402A Unspecified fracture of shaft of left fibula, initial encounter for closed fracture; X58.XXXA Exposure to other specified factors, initial encounter; K74.60 Unspecified cirrhosis of liver; F41.9 Anxiety disorder, unspecified; R06.89 Other abnormalities of breathing; R09.02 Hypoxemia; G89.29 Other chronic pain; I95.9 Hypotension, unspecified; Z66 Do not resuscitate; Z88.0 Allergy status to penicillin; Z88.6 Allergy status to analgesic agent; Z91.041 Radiographic dye allergy status; Z11.52 Encounter for screening for COVID-19; Z90.49 Acquired absence of other specified parts of digestive tract; Z87.891 Personal history of nicotine dependence
CPT/HCPCS: 88305; 32550; 32555; 49083; 71045; 71260; 73590; 74022; 74177; 75989; 76700; 80048; 80053; 80202; 81003; 81015; 82042; 82140; 82150; 82248; 82945; 83036; 83605; 83615; 83735; 83880; 83986; 84157; 84478; 84484; 85025; 85027; 85610; 86704; 86706; 86803; 87015; 87040; 87070; 87086; 87149; 87186; 87205; 87340; 87502; 87811; 88112; 89051; 93005; 93306; 93971; 93975; 96361; 96374; 97163; 97167; 97530; 97535; 99152; 99153; 99285; C1729; Q9967